=== PATIENT | female | born 1965 | race Caucasian/White ===

== ENCOUNTER 2023-01-21 09:10 | Inpatient (IN) | payer OTHER, SELFPAY ==
[2023-01-21] VITALS (19 sets, daily range): BP systolic 97–140; BP diastolic 37–76; PULSE 110–181; RESP 20–40; TEMP 37.4–38.1; O2SAT 98–100
--- NOTE | ~2023-01-21 | CT_ITS ---
EXAMINATION: CT brain wo con DATE: 01/21/2023 10:32 INDICATION: Transient alteration of awareness. TECHNIQUE: Computed tomography (CT) of the head was performed without intravenous contrast. The mA wa s adjusted according to patient size. Iterative reconstruction technique was employed. The dose-lengt h product was 605.33 mGy-cm. COMPARISON: None FINDINGS: There are changes of left-sided craniectomy. There is no intracranial hemorrhage, acute inf arction, or abnormal intracranial mass lesion. The ventricles are normal in size. The orbits are norm al. There is mucosal thickening in the paranasal sinuses. The mastoid air cells are normal. There is embolization material in peripheral left middle cranial fossa. IMPRESSION: 1. No acute intracranial pathology. Reviewed, dictated and finalized at location A.
--- NOTE | ~2023-01-21 | XR_ITS ---
EXAMINATION: XR chest 1V portable DATE: 01/21/2023 10:07 INDICATION: Altered mental status. Weakness. TECHNIQUE: A single frontal view of the chest was obtained. COMPARISON: None. FINDINGS: The lung volumes are small. There is a diffuse interstitial pattern in the lungs. No pleura l effusion or pneumothorax. The heart size is normal. IMPRESSION: 1. Small lung volumes with diffuse interstitial pattern, consistent with mild pulmonary edema versus atypical pneumonia versus chronic interstitial lung disease. Reviewed, dictated and finalized at location A. IMPRESSION: 1. Small lung volumes with diffuse interstitial pattern, consistent with mild p ulmonary edema versus atypical pneumonia versus chronic interstitial lung disea se.
--- NOTE | ~2023-01-21 | XR_ITS ---
XR chest 1V portable DATE: 01/28/2023 14:09 INDICATION: Dyspnea TECHNIQUE: Portable upright AP chest on 01/28/2023 at 1405 hours COMPARISON: 01/27/2023 CT chest abdomen pelvis FINDINGS: There is prominent elevation the right diaphragm and right basilar atelectasis. Patchy mild bilateral pulmonary infiltrates. No pneumothorax. Heart size is likely within normal range. IMPRESSION: Prominent elevation right diaphragm and mild bilateral patchy pulmonary infiltrates Reviewed, dictated and finalized at location A. IMPRESSION: Prominent elevation right diaphragm and mild bilateral patchy pulmo nary infiltrates
--- NOTE | ~2023-01-21 | XR_ITS ---
Portable chest x-ray Comparison: 01/21/2023 Clinical History: Shortness of breath Findings: There is worsening hazy bibasilar airspace disease, most compatible with moderate pulmonar y edema. Probable small right pleural effusion. Cardiomediastinal silhouette is stable. Bones and so ft tissues are unremarkable. Impression: Probable moderate pulmonary edema pattern with small right pleural effusion. Correlate clinically for infection. Reviewed, dictated and finalized at location . Impression: Probable moderate pulmonary edema pattern with small right pleural effusion. Co rrelate clinically for infection.
--- NOTE | ~2023-01-21 | XR_ITS ---
EXAMINATION: XR chest 1V portable Exam Date/Time: 01/30/2023 22:25 CDT HISTORY: PNA Comparison: 01/28/2023. RESULT: Lines, tubes, and devices: Partially visualized right ureteral stent. Lungs and pleura: Low volumes with crowding. Diffuse interstitial pattern. No focal consolidation. I mproved aeration of the right medial lung base. Minimal streaky bibasilar atelectasis/scar. Cardiomediastinal silhouette: Stable. Other: No acute osseous or upper abdominal finding. IMPRESSION: Interstitial edema. Reviewed, dictated and finalized at location K. IMPRESSION: Interstitial edema.
--- NOTE | ~2023-01-21 | XR_ITS ---
EXAMINATION: XR abdomen obstructive series DATE: 01/24/2023 10:36 INDICATION: Abnormal CT with small bowel ileus versus obstruction TECHNIQUE: Frontal supine and upright views of the abdomen were obtained. COMPARISON: CT dated 01/23/2023 FINDINGS: Is a gastric tube with distal tip in proximal side port in the body of the stomach. Right internal ur eteral stent with loops formed in expected position. Couple small ossific densities project along cristine e the distal aspect of the right internal ureteral stent which could represent either ureteral stones or superimposed phleboliths. No free intraperitoneal gas. There are some gas scattered within the co maurice. No dilated gas-filled loops of small bowel. Mild scattered bilateral airspace opacities which co uld represent pneumonia, atelectasis and/or pulmonary edema. IMPRESSION: 1. No free intraperitoneal gas or dilated gas-filled loops of bowel to suggest obstruction. Reviewed, dictated and finalized at location A.
--- NOTE | ~2023-01-21 | CT_ITS ---
EXAMINATION: CT chest abdomen pelvis wo con DATE: 01/23/2023 17:15 INDICATION: Sepsis. TECHNIQUE: Computed tomography (CT) of the chest, abdomen, and pelvis was performed without intraveno us contrast. Automated exposure control and iterative reconstruction technique were employed. The dos e-length product was 614.47 mGy-cm. COMPARISON: None FINDINGS: CHEST CT: There are airspace opacities with volume loss in right lower lobe. There are patchy airspace opacitie s and groundglass opacities in the upper lobes and right middle lobe. There is mild atelectasis in le ft lower lobe. There are small pleural effusions. Cardiomegaly is noted. No pericardial effusion. The re is a chronic burst fracture of T12 vertebral body. There is severe lumbar thoracic spondylosis. Th ere is mild chronic anterior wedging of multiple midthoracic vertebral bodies. ABDOMEN/PELVIS CT: The liver is normal. The gallbladder is normal in size. There is mild splenomegaly. The pancreas and adrenal glands are normal. There is a 4 mm stone in right kidney. There is mild right hydronephrosis and hydroureter. The bladder is decompressed by a Weinberg catheter. There is a calcification blurred by motion artifact in the area of the distal right ureter. Left kidney is normal. There are dilated loo ps of small bowel. The appendix is not visualized. There is a small volume of ascites. There are no p athologically enlarged lymph nodes. There is edema of the intra-abdominal fat and body wall. There ar e chronic burst fractures of L1 and L2 vertebral bodies. There is moderate lumbar spondylosis. IMPRESSION: 1. Multifocal lung disease, consistent with pneumonia. 2. Small pleural effusions. 3. Mild right hydronephrosis and hydroureter. A calcification blurred by motion artifact in the area of the distal radial right ureter is indeterminate for a ureteral stone. 4. Small volume of ascites. 5. Dilated loops of small bowel, consistent with adynamic ileus versus partial small bowel obstructio n. 6. Mild splenomegaly. Reviewed, dictated and finalized at location E. IMPRESSION: 1. Multifocal lung disease, consistent with pneumonia. 2. Small pleural effusions. 3. Mild right hydronephrosis and hydroureter. A calcification blurred by motion artifact in the area of the distal radial right ureter is indeterminate for a ureteral stone. 4. Small volume of ascites. 5. Dilated loops of small bowel, consistent with adynamic ileus versus partial small bowel obstruction. 6. Mild splenomegaly.
--- NOTE | ~2023-01-21 | XR_ITS ---
EXAMINATION: XR abdomen NG/feed tube insert DATE: 01/23/2023 20:21 INDICATION: Nasogastric tube placement. TECHNIQUE: An upright view of the abdomen was obtained. COMPARISON: CT abdomen and pelvis 01/23/2023 FINDINGS: There are no visible dilated loops of bowel. The lower abdomen is excluded. The nasogastric tube tip is in the stomach. IMPRESSION: 1. Nasogastric tube tip in the stomach. Reviewed, dictated and finalized at location E.
--- NOTE | ~2023-01-21 | CT_ITS ---
EXAMINATION: CT chest abdomen pelvis w con DATE: 01/27/2023 14:08 INDICATION: Shortness of breath. TECHNIQUE: Computed tomography (CT) of the chest, abdomen, and pelvis was performed without intraveno us contrast. Automated exposure control and iterative reconstruction technique were employed. The dos e-length product was 490.74 mGy-cm. COMPARISON: CT 01/23/2023 FINDINGS: CHEST CT: There are scattered groundglass opacities in all lobes. There is dependent atelectasis bilaterally. T here are small right and trace left pleural effusions. The heart size is normal. No pericardial effus ion. There is chronic height loss of T12 vertebral body. There is severe thoracic spondylosis. ABDOMEN/PELVIS CT: The liver demonstrates a small nodular surface contour, consistent with cirrhosis. The gallbladder is normal in size. There is mild splenomegaly. The pancreas, adrenal glands and left kidney are normal. There is a 2 mm stone in right kidney. There is a right internal ureteral stent in expected position . There are two 3 mm stones in distal right ureter. There is wall thickening of the small bowel and c olon. There is a moderate volume of ascites. There is calcified atherosclerosis of the aorta and many of the other arteries. The bladder is decompressed by a Weinberg catheter. There is chronic height loss of L1, L2, and L5 vertebral bodies. There is moderate lumbar spondylosis. IMPRESSION: 1. Improvement in multifocal lung disease, consistent with pneumonia. 2. Stable small right pleural effusion. 3. Right internal ureteral stent in expected position. Two 3 mm stones in distal right ureter. 4. Cirrhosis of the liver with portal venous hypertension. 5. Worsened moderate volume of ascites. 6. Wall thickening of small and large bowel, consistent with interstitial edema versus enterocolitis. Reviewed, dictated and finalized at location E. IMPRESSION: 1. Improvement in multifocal lung disease, consistent with pneumonia. 2. Stable small right pleural effusion. 3. Right internal ureteral stent in expected position. Two 3 mm stones in dista l right ureter. 4. Cirrhosis of the liver with portal venous hypertension. 5. Worsened moderate volume of ascites. 6. Wall thickening of small and large bowel, consistent with interstitial edema versus enterocolitis.
--- NOTE | ~2023-01-21 | XR_ITS ---
EXAMINATION: XR sm bowel follow through WS DATE: 01/24/2023 10:37 INDICATION: Assess for small bowel obstruction TECHNIQUE: High Lift Operator radiograph(s) of the abdomen was/were obtained. Water-soluble oral contrast was admi nistered, and sequential radiographs of the abdomen were obtained until oral contrast was noted to be in the proximal colon. COMPARISON: CT abdomen pelvis dated 01/23/2023 FINDINGS: Transit time from the stomach to proximal colon was approximately 15 minutes. There is normal caliber and mucosal fold pattern throughout the small bowel. Right internal ureteral stent in expected posit ion. IMPRESSION: 1. Normal small bowel follow-through. Reviewed, dictated and finalized at location A.
--- NOTE | ~2023-01-21 | XR_ITS ---
EXAMINATION: XR retrograde pyelo w/stent RT DATE: 01/23/2023 21:23 INDICATION: Right ureteral stone. TECHNIQUE: 52 intraoperative fluoroscopic views of the abdomen and pelvis were obtained. I was not pr esent. Fluoroscopy exposure time was 91 seconds. COMPARISON: CT abdomen and pelvis 01/23/2023 FINDINGS: The right-sided retrograde pyelogram demonstrates mobile filling defects that may be gas bu bbles and/or stones. The final images demonstrate a right internal ureteral stent in expected positio n. IMPRESSION: 1. Filling defects in the right ureter that may be gas bubbles and/or stones. 2. Right internal ureteral stent in expected position. Reviewed, dictated and finalized at location E.
--- NOTE | 2023-01-21 09:19 | ECG_ITS ---
Measurements Intervals [place] Rate: 112 P: 51 UT: 153 QRS: 6 QRSD: 94 T: 128 QT: 303 QTc: 415 Interpretive Statements SINUS TACHYCARDIA ATRIAL PREMATURE COMPLEX BORDERLINE ST-T WAVE ABNORMALITY- DIFFUSE LEADS BASELINE ARTIFACT- II, III, AVF, V3, V6 ABNORMAL ECG NO PREVIOUS ECG AVAILABLE FOR COMPARISON Electronically Signed On 01-21-2023 16:31:03 CDT by Fabiano Lucas D.O.
--- NOTE | 2023-01-21 09:20 | ED.AMS ---
HPI - Altered Mental Status General Chief Complaint: Altered Mental Status Stated Complaint: Altered mental status Time Seen by Provider: 01/21/23 09:14 History of Present Illness HPI narrative: Patient is a 57-year-old female presenting with altered mental status. Unclear past medical history at this time. According to EMS, she was noted to be altered yesterday at her nursing facility. This morning she was noted to be minimally responsive so EMS was called. She was found to be hypoglycemic with EMS with a blood sugar of 51. She was given a dose of IM glucagon and her mental status has slowly improved. They were unable to get IV access. On arrival, patient is alert but altered. She denies any pain. Further history limited secondary to clinical condition. Related Data Home Medications Medication Instructions Recorded Confirmed acetaminophen 500 mg tablet 500 mg PO Q6H PRN Pain 01/21/23 01/21/23 alprazolam 0.5 mg tablet (Xanax) 0.5 mg PO Q12H 01/21/23 01/21/23 bisacodyl 10 mg rectal suppository 10 mg RECTAL DAILY PRN Constipation 01/21/23 01/21/23 famotidine 20 mg tablet 20 mg PO DAILY 01/21/23 01/21/23 levetiracetam 500 mg tablet 500 mg PO Q12H 01/21/23 01/21/23 midodrine 5 mg tablet 5 mg PO TIDWM 01/21/23 01/21/23 oxybutynin chloride 5 mg 5 mg PO DAILY 01/21/23 01/21/23 tablet,extended release 24 hr oxycodone 5 mg tablet 5 mg PO Q4H PRN Pain 01/21/23 01/21/23 polyethylene glycol 3350 17 gram 17 g PO DAILY PRN Constipation 01/21/23 01/21/23 oral powder packet (Miralax) venlafaxine 75 mg capsule,extended 75 mg PO DAILY 01/21/23 01/21/23 release 24 hr (Effexor XR) Allergies Allergy/AdvReac Type Severity Reaction Status Date / Time Sulfa (Sulfonamide Allergy Unknown Verified 01/21/23 09:29 Antibiotics) Review of Systems Review of Systems: ROS unobtainable: Yes unobtainable due to medical condition and unobtainable due to mental status [facility] Past Medical History Medical History (Updated 01/21/23 @ 19:25 by Qi Saunders NP) Anxiety Chronic GERD Cirrhosis of liver Depression with anxiety Thrombocytopenia Surgical History Surgical History (Updated 01/21/23 @ 18:04 by Qi Saunders NP) H/O breast biopsy H/O craniotomy Family History Family History (Updated 01/21/23 @ 18:05 by Qi Saunders NP) Unknown No problems noted. Social History Social History (Updated 01/21/23 @ 18:08 by Qi Saunders NP) Social History: She resides in a long term. She is . She is disabled. She never smoked. She has a child stefani who is listed as the next of kin. Code status DNR. Smoking status: Never smoker Alcohol intake: unknown Substance use: unknown Substance use type: unknown Spiritual care concerns: No Exam Narrative: GENERAL: Chronically ill-appearing female lying in bed in no acute distress HEAD: Left-sided skull defect consistent with prior craniectomy EYES: EOMI. right pupil slightly larger than the left, both are reactive ENT: Nares clear, no rhinorrhea or epistaxis. Mucous membranes dry NECK: Supple. CHEST: No respiratory distress. HEART: Tachycardic, irregular rhythm ABDOMEN: Soft, nontender, nondistended EXTREMITIES: Normal range of motion. No edema. SKIN: Warm, dry, no rash. NEURO: Moves all 4 extremities, follows commands in all 4 extremities, alert, oriented x1 PSYCH: alert Course Vital Signs Vital signs: Vital Signs Temperature 99.8 F H 01/21/23 09:19 Pulse Rate 181 H 01/21/23 09:19 Respiratory Rate 36 H 01/21/23 09:19 Blood Pressure 97/37 L 01/21/23 09:19 Temperature 98.4 F 01/22/23 04:06 Pulse Rate 155 H 01/22/23 06:14 Respiratory Rate 19 01/22/23 04:06 Blood Pressure 115/55 L 01/22/23 06:07 Pulse Oximetry 98 01/22/23 04:08 Oxygen Delivery High Flow Nasal Cannula 01/22/23 04:08 Oxygen Flow Rate 2 01/22/23 04:08 Fraction of Inspired Oxygen 28 01/22/23 04:08 Procedures Fly
[2023-01-21 09:34] LABS: Glucose Point of Care 49 mg/dl (65-105)
[2023-01-21] MEDS: SODIUM CHLORIDE 0.9% IV 1,000 ML 999 ML IV CONT ×2 (10:06→10:46)
[2023-01-21] MEDS: DEXTROSE 50% 25 GM/50 ML SYRINGE (10:07)
[2023-01-21 10:18] LABS: Hematocrit 36.2 % (37.0-47.0); Hemoglobin 10.3 g/dL (12.0-15.0); Immature Platelet Fraction Pct 13.6 % (0.9-11.2); Mean Corpuscular HGB Conc 28.5 g/dl (32-36); Mean Corpuscular Hemoglobin 22.3 pg (26-34); Mean Corpuscular Volume 78.4 fl (80-100); Platelet Count Result 50 k/mm3 (150-375); Red Blood Count 4.62 M/mm3 (4.2-5.4); Red Cell Distribution Width 21.2 % (11.5-14.5); White Blood Count 18.8 K/mm3 (4.5-10.0)
[2023-01-21 10:27] LABS: Partial Thromboplastin Time 53.3 SECONDS (22.3-36.8); Prothrombin Time 23.7 Seconds (11.1-14.7)
[2023-01-21 10:45] LABS: Albumin Level 3.1 g/dL (3.5-5.1); Alkaline Phosphatase 66 U/L (38-126); Anion Gap 11 mmol/L (8-16); Aspartate Amino Transferase 422 U/L (14-36); Bilirubin,Total 2.5 mg/dL (0.2-1.3); Blood Urea Nitrogen 36 mg/dL (7-17); Calcium 8.6 mg/dL (8.4-10.2); Carbon Dioxide 19 mmol/L (22-30); Chloride 112 mmol/L (98-107); Estimated Glomerular Filt Rate 36; Glucose 89 mg/dL (65-110); Lipase 106 U/L (23-300); Magnesium 1.9 mg/dL (1.6-2.3); Potassium 3.2 mmol/L (3.4-5.0); Sodium 142 mmol/L (137-145)
[2023-01-21] MEDS: PIPERACILLN/TAZ 3.375GM/NS50ML 3.375 GM/50 ML BAG IVPB (10:46)
[2023-01-21 10:51] LABS: Glucose Point of Care 135 mg/dl (65-105)
[2023-01-21 10:52] LABS: Influenza A QL RT-PCR Negative (Negative); Influenza B QL RT-PCR Negative (Negative); SARS-CoV-2 RNA PCR Negative (Negative)
[2023-01-21 10:54] LABS: Anisocytosis 2+ (NORMAL); Band Neutrophils Percent 32 % (0-6); Lymphocytes Absolute Manual 0.56 K/mm3 (1.1-4.5); Lymphocytes Percent Manual 3 % (18-44); Microcytosis 1+ (NORMAL); Monocytes Absolute Manual 0.56 K/mm3 (0.1-0.90); Monocytes Percent Manual 3 % (3-9); Neutrophils Absolute Manual 17.67 K/mm3 (1.7-7.2); Neutrophils Percent Manual 62 % (46-73); Platelet Estimate Decreased (Adequate); Schistocytes None Seen (NORMAL); Total Cells Counted 100
[2023-01-21 10:55] LABS: Ovalocytes 1+ (NORMAL)
[2023-01-21 11:04] LABS: Appearance Urine Cloudy (Clear); Bacteria Urine 4+ /hpf; Bilirubin Urine Negative (Negative); Blood Urine 3+ (Negative); Color Urine Yellow (Yellow); Glucose Urine UA Trace mg/dL (Negative); Granular Casts Urine Present /lpf; Ketones Urine Negative (Negative); Leukocyte Esterase Ur 2+ LEU/UL (Negative); Need Manual Microscopic Reviewed; Nitrate Urine Negative (Negative); Protein Urine 2+ mg/dL (Negative); Specific Grav Ur 1.021 (1.001-1.035); Squamous Epithelial Cell Urine Occasional /hpf (Few); WBC Urine >100 /hpf; pH Urine 5.5 (5.0-9.0)
[2023-01-21 11:07] LABS: NT Pro B Type Natriuretic Pept 6970 pg/mL (19.9-100); Troponin I 0.068 ng/mL (0.000-0.034)
[2023-01-21 11:09] LABS: Alanine Aminotransferase 87 U/L (6-35)
[2023-01-21 11:15] LABS: Add Urine Microscopic? YES
--- NOTE | 2023-01-21 11:23 | ECG_ITS ---
Measurements Intervals [place] Rate: 114 P: 53 OR: 180 QRS: -1 QRSD: 98 T: 172 QT: 322 QTc: 445 Interpretive Statements SINUS TACHYCARDIA ATRIAL COUPLETS AND FREQUENT ATRIAL PREMATURE COMPLEXES NONSPECIFIC ST & T-WAVE ABNORMALITY- DIFFUSE LEADS BASELINE ARTIFACT- II, III, AVR, AVL, AVF, V3-V6 ABNORMAL ECG COMPARED TO ECG 01/21/2023 09:17:25 NO SIGNIFICANT CHANGES Electronically Signed On 01-21-2023 16:36:46 CDT by Fabiano Lucas D.O.
[2023-01-21] MEDS: SODIUM CHLORIDE 0.9% IV 1,000 ML 125 ML IV CONT (12:38)
[2023-01-21] MEDS: AZITHROMYCIN 500 MG/NS 250 ML 500 MG/250 ML BAG 250 MG IVPB (12:38)
[2023-01-21 13:12] LABS: Reflex Lactic Acid Yes or No Add Lactic
[2023-01-21 13:47] LABS: Troponin I 0.055 ng/mL (0.000-0.034)
--- NOTE | 2023-01-21 14:00 | PM.IMHP ---
H&P: HPI History of Present Illness Date/Time: 01/21/23 14:00 Chief Complaint: Altered mental status Narrative: This is a 57-year-old female patient who resides in a fdc. The patient came to the emergency room today because she has been altered since yesterday at the nursing facility. The patient was minimally responsive when EMS arrived. Patient was found to be hypoglycemic in the 40s and 50s and she was given IM glucagon her mental status did improve somewhat. They were unable to achieve IV access therefore a central line was placed in the right femoral area per ED provider. Her white count was found to be 18.8. H and H is 10.3 and 36.2. The patient does have bandemia with band neutrophils 32. BUN is 36 creatinine 1.5. Her lactic was 6.0 and now 4.3. Total bilirubin 2.5 AST 422 ALT is 87. Troponin 0.068, 0.055, and 0.053 respectively. BNP 6970. She was found to be positive for UTI. Influenza A/B and COVID are all negative. Head CT was read as no acute intracranial pathology. Chest x-ray was read asSmall lung volumes with diffuse interstitial pattern, consistent with mild pulmonary edema versus atypical pneumonia versus chronic interstitial lung disease. The patient was given Zosyn, vancomycin, a azithromycin, and 3 L of IV fluids per sepsis protocol 30 milligrams/kilogram. Her platelet count is 50. Potassium 3.2. Chloride is 112. The patient is being admitted to inpatient status on the date of service of 01/21/2023 Review of Systems Review of Systems: All systems reviewed & are unremarkable except as noted in HPI and below Constitutional: Constitutional: Reports as per HPI and Reports no additional constitutional complaints Eyes: Eyes: Reports as per HPI and Reports no additional eye complaints ENT: Reports system reviewed and no additional complaints, except as documented and Reports Normal hearing present Cardiovascular: Cardiovascular: Reports no additional cardiovascular complaints Respiratory: Respiratory: Reports no additional respiratory complaints and Reports no additional respiratory complaints Gastrointestinal: Gastrointestinal: Reports as per HPI and Reports no additional gastrointestinal complaints Musculoskeletal: Musculoskeletal: Reports no additional musculoskeletal complaints Integumentary/Breasts: Skin/Breast: Reports system reviewed and no additional complaints, except as docu and Reports as per HPI Neurologic: Reports system reviewed and no additional complaints, except as documented, Reports as per HPI and Reports Normal hearing present Psychiatric: Psychiatric: Reports no additional psychiatric complaints and Reports as per HPI Endocrine: Endocrine: Reports no additional endocrine complaints Hematologic/Lymphatic: Hematologic/Lymphatic: Reports no additional hematologic/lymphatic complaints Allergic/Immunologic: Allergic/Immunologic: Reports no additional allergic/immunologic complaints [facility] Past Medical History Medical History (Updated 01/21/23 @ 19:25 by Qi Saunders NP) Anxiety Chronic GERD Cirrhosis of liver Depression with anxiety Thrombocytopenia Surgical History Surgical History (Updated 01/21/23 @ 18:04 by Qi Saunders NP) H/O breast biopsy H/O craniotomy Family History Family History (Updated 01/21/23 @ 18:05 by Qi Saunders NP) Unknown No problems noted. Social History Social History (Updated 01/21/23 @ 18:08 by Qi Saunders NP) Social History: She resides in a fdc. She is . She is disabled. She never smoked. She has a child stefani who is listed as the next of kin. Code status DNR. Smoking status: Never smoker Alcohol intake: unknown Substance use: unknown Substance use type: unknown Spiritual care concerns: No Meds Home Medications and Allergies Home Medications Medication Instructions Recorded Confirmed Type acetaminophen 500 mg tablet 500 mg PO Q6H PRN Pain 01/21/23
[2023-01-21 14:17] LABS: Lactic Acid 4.3 mmol/L (0.7-2.0)
[2023-01-21] MEDS: ACETAMINOPHEN 650 MG SUPPOSITORY RECTAL (15:01)
[2023-01-21] MEDS: CENTRAL LINE FLUSH 10 ML IV PUSH ×3 (15:04→20:41)
--- NOTE | 2023-01-21 16:01 | ADMGEN ---
This patient, Patt López, was admitted to IMU Room 231-01 at 1342. Patient/family oriented to hospital policies and general routines including ID bracelet, bed and alarms, visiting hours, pain management, procedures, bathroom and other care routines, personal items, smoking policy, room service/diet, and visiting hours. Information on how to activate the Rapid Response Team has been discussed. Patient/Family are encouraged to report perceived risks to care and to ask questions if they do not understand what they are told or what they should do.
[2023-01-21 16:34] LABS: Troponin I 0.053 ng/mL (0.000-0.034)
[2023-01-21] MEDS: KCL 20 MEQ/SW 100 ML 100 ML 50 MEQ IVPB (16:54)
[2023-01-21] MEDS: FAMOTIDINE 20 MG/2 ML VIAL IV PUSH (20:27)
[2023-01-21] MEDS: levETIRAcetam 500MG/NACL 100ML 500 MG/100 ML BAG 400 MG IVPB (20:40)
[2023-01-21] MEDS: CENTRAL LINE FLUSH 20 ML IV PUSH (20:41)
[2023-01-21 20:52] LABS: Ammonia 34 umol/L (9-30)
[2023-01-21] MEDS: IPRATROPIUM BR 0.02% INH SOLN 0.5 MG/2.5 ML VIAL INHALATION (20:59)
[2023-01-21] MEDS: LEVALBUTEROL NEB 1.25 MG/3 ML INHALATION (20:59)
[2023-01-21 23:19] LABS: Glucose Point of Care 98 mg/dl (65-105)
[2023-01-22] VITALS (35 sets, daily range): BP systolic 95–176; BP diastolic 45–87; PULSE 80–168; RESP 19–32; TEMP 36.1–37.6; O2SAT 93–100
[2023-01-22] MEDS: ACETAMINOPHEN 650 MG SUPPOSITORY RECTAL (00:16)
[2023-01-22] MEDS: LEVALBUTEROL NEB 1.25 MG/3 ML INHALATION ×4 (02:46→20:15)
[2023-01-22] MEDS: IPRATROPIUM BR 0.02% INH SOLN 0.5 MG/2.5 ML VIAL INHALATION ×4 (02:46→20:15)
--- NOTE | 2023-01-22 05:17 | ECG_ITS ---
Measurements Intervals [place] Rate: 154 P: [place]: 0 QRS: 0 QRSD: 96 T: 159 QT: 269 QTc: 431 Interpretive Statements ATRIAL FIBRILLATION WITH RAPID VENTRICULAR RESPONSE BORDERLINE ST-T WAVE ABNORMALITY- HIGH LATERAL LEADS BASELINE WANDER- I, II, AVR, AVL, AVF, V6 ABNORMAL ECG COMPARED TO ECG 01/21/2023 11:25:57 ATRIAL FIBRILLATION NOW PRESENT Electronically Signed On 01-22-2023 7:36:26 CDT by Fabiano Lucas D.O.
[2023-01-22] MEDS: SODIUM CHLORIDE 0.9% IV 1,000 ML 75 ML IV CONT ×2 (05:29→15:38)
[2023-01-22] MEDS: CENTRAL LINE FLUSH 10 ML IV PUSH ×4 (05:30→21:39)
[2023-01-22] MEDS: CENTRAL LINE FLUSH 20 ML IV PUSH (05:30)
--- NOTE | 2023-01-22 06:06 | PM.EVENT ---
Event Note Event Note Event Note: 01/22/2023 at 05:30 Nursing staff called to tell me that the patient went into an irregular tachycardic rhythm. A stat EKG was performed a confirm the patient has been in AFib RVR since just after 05:00. This new onset AFib with no known prior history according to records. The patient is auto anticoagulated with an INR of 2 due to her cirrhosis. Patient's blood pressures have been stable despite atrial fibrillation and history of orthostatic hypotension requiring midodrine. I went and evaluated the patient. She has no evidence of overt edema. She is not in any respiratory distress. Mucous membranes are dry. Pupils are unequal with right pupil greater than left but patient reports this changes chronic. Patient has cranial changes of prior craniotomy with resulting skull deformity due to history of brain tumor. She denies any pain. She reports that she feels like she is freezing. Her room was quite cold. She has been incontinent of a large bowel movement at the time my evaluation. The patient reports that she is in the hospital and that the month is January. She does not know the year. Assessment/Plan: New onset AFib RVR--EKG was reviewed and demonstrated atrial fibrillation with RVR. No QT prolongation. The patient's heart rate did get as high as 160-170 but for the most part heart rate is been 140-150. I gave 1 dose of IV Lopressor which improved the patient's heart rate 120 to 130s. Will obtain echocardiogram to further evaluate cardiac structure and function. If heart rate remains elevated after 20 30 minutes and is long his blood pressures are stable all could order for 1 more dose of IV Lopressor versus starting the patient on a Cardizem drip. 30 minute spent in critical care activities Due to a high probability of clinically significant, life threatening deterioration, the patient required my highest level of preparedness to intervene emergently and I personally spent this critical care time directly and personally managing the patient. This critical care time included obtaining a history; examining the patient; pulse oximetry; ordering and review of studies; arranging urgent treatment with development of a management plan; evaluation of patient's response to treatment; frequent reassessment; and discussions with other providers. It was exclusive of separately billable procedures and treating other patients and teaching time. Please see Assessment and Plan section and the rest of the note for further information on patient assessment and treatment.
[2023-01-22 06:10] LABS: Hematocrit 29.4 % (37.0-47.0); Hemoglobin 8.6 g/dL (12.0-15.0); Immature Platelet Fraction Pct 13.3 % (0.9-11.2); Mean Corpuscular HGB Conc 29.3 g/dl (32-36); Mean Corpuscular Hemoglobin 22.9 pg (26-34); Mean Corpuscular Volume 78.2 fl (80-100); Platelet Count Result 44 k/mm3 (150-375); Red Blood Count 3.76 M/mm3 (4.2-5.4); Red Cell Distribution Width 20.7 % (11.5-14.5); White Blood Count 10.8 K/mm3 (4.5-10.0)
[2023-01-22] MEDS: METOPROLOL TARTRATE INJ 5 MG/5 ML VIAL IV PUSH (06:14)
[2023-01-22 06:27] LABS: Lactic Acid Reflex 1.9 mmol/L (0.7-2.0)
[2023-01-22 06:29] LABS: Alanine Aminotransferase 78 U/L (6-35); Albumin Level 2.6 g/dL (3.5-5.1); Alkaline Phosphatase 55 U/L (38-126); Anion Gap 0 mmol/L (8-16); Aspartate Amino Transferase 382 U/L (14-36); Bilirubin,Total 1.7 mg/dL (0.2-1.3); Blood Urea Nitrogen 41 mg/dL (7-17); Calcium 7.9 mg/dL (8.4-10.2); Carbon Dioxide 23 mmol/L (22-30); Chloride 116 mmol/L (98-107); Estimated CRCL calculation 41 ml/min; Estimated Glomerular Filt Rate 57; Glucose 113 mg/dL (65-110); Magnesium 2.2 mg/dL (1.6-2.3); Potassium 3.1 mmol/L (3.4-5.0); Sodium 139 mmol/L (137-145)
[2023-01-22 06:39] LABS: Band Neutrophils Percent 19 % (0-6); Lymphocytes Absolute Manual 0.43 K/mm3 (1.1-4.5); Lymphocytes Percent Manual 4 % (18-44); Monocytes Absolute Manual 0.32 K/mm3 (0.1-0.90); Monocytes Percent Manual 3 % (3-9); Neutrophils Absolute Manual 10.04 K/mm3 (1.7-7.2); Neutrophils Percent Manual 74 % (46-73); Platelet Estimate Decreased (Adequate); Total Cells Counted 100
[2023-01-22 06:40] LABS: Anisocytosis 2+ (NORMAL); Burr Cells 1+ (NORMAL); Hypochromasia 1+ (NORMAL); Microcytosis 1+ (NORMAL); Schistocytes None Seen (NORMAL); Smudge Cells PRESENT
[2023-01-22 06:57] LABS: INR 1.6; Prothrombin Time 19.5 Seconds (11.1-14.7)
[2023-01-22] MEDS: POTASSIUM CHLORIDE INJ 40 MEQ in SODIUM CHLORIDE 0.9% IV 500 ML 130 MEQ IVPB (07:29)
[2023-01-22] MEDS: oxyCODONE HCL (*CRX) 5 MG TAB IR PO ×2 (08:00→17:21)
--- NOTE | 2023-01-22 08:33 | PM.IMPN ---
Progress Note: A&P Assessment and Plan (1) Pneumonia: Code(s): J18.9 - Pneumonia, unspecified organism Status: Acute (2) Hypokalemia: Code(s): E87.6 - Hypokalemia Status: Acute (3) Elevated troponin: Code(s): R77.8 - Other specified abnormalities of plasma proteins Status: Acute (4) Depression with anxiety: Code(s): F41.8 - Other specified anxiety disorders Status: Acute (5) Chronic GERD: Code(s): K21.9 - Gastro-esophageal reflux disease without esophagitis Status: Acute (6) Acute and chronic respiratory failure with hypoxia: Code(s): J96.21 - Acute and chronic respiratory failure with hypoxia Status: Acute (7) New onset a-fib: Code(s): I48.91 - Unspecified atrial fibrillation Status: Acute (8) Atrial fibrillation with RVR: Code(s): I48.91 - Unspecified atrial fibrillation Status: Acute (9) Altered mental status: Code(s): R41.82 - Altered mental status, unspecified Status: Acute (10) Bacteremia: Code(s): R78.81 - Bacteremia Status: Acute (11) Severe sepsis: Code(s): A41.9 - Sepsis, unspecified organism; R65.20 - Severe sepsis without septic shock Status: Acute (12) UTI (urinary tract infection): Code(s): N39.0 - Urinary tract infection, site not specified Status: Acute Plan . Acute encephalopathy Patient is confused, likely secondary to sepsis and electrolyte disorder Neuro check Fall precaution Severe sepsis Patient has leukocytosis, tachycardia tachypnea, hypotension POA, likely resulting from pneumonia and UTI Received fluid resuscitation and antibiotics Blood pressure became stable Blood culture grows Gram-negative bacilli Check to doxycycline and Zosyn IV continue vancomycin IV Deescalate antibiotic based on cultures and susceptibility Pneumonia Chest x-ray shows interstitial patchy infiltrate both lungs, suggesting atypical pneumonia Patient on vancomycin, doxycycline and Zosyn IV Acute respiratory failure with hypoxemia Likely secondary pneumonia Continue O2 therapy to keep pulse ox above 92 UTI UA shows pyuria and microscopic hematuria Follow-up urine culture Antibiotics see above New onset AFib and RVR No history of RVR Patient is noted have AFib on telemetry monitoring in the morning, heart rate above 170 Likely secondary to sepsis Blood pressure was soft, may not be able to tolerate Cardizem and beta-ajay Start amiodarone 150 mg once and amiodarone drip Follow-up echocardiogram Follow-up TSH Consult cardiology for evaluation treatment Elevated troponin Likely secondary to sepsis EKG shows AFib no specific ST-T changes Follow echocardiogram Consult operations analyst for evaluation Start aspirin 325 mg once 81 mg daily p.o.. History of seizure Currently patient on Keppra drip, will switch to oral medication when patient is able to tolerate oral diet Hypokalemia Replace with potassium chloride Follow-up magnesium level Follow-up BMP Replete electrolytes accordingly ?Thrombocytopenia: The patient has had a history of cirrhosis of the liver.? No anticoagulation is administer at this time for DVT prophylaxis.? Because of her low platelets. 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 Patient was somnolent, hypothyroid or bright history, complaining whole body ache. I reviewed the labs, images studies. Blood culture grows Gram-negative bacilli, leukocytosis persists trending down. Patient was found to have AFib RVR, heart rate about 173 per nurse report according to
[2023-01-22] MEDS: AMIODARONE 360 MG/D5W 200 ML 360 MG/200 ML BAG 33.33 MG IV CONT (09:30)
[2023-01-22] MEDS: AMIODARONE 150 MG/D5W 100 ML 150 MG/100 ML BAG 600 MG IV CONT (09:35)
[2023-01-22] MEDS: FAMOTIDINE 20 MG/2 ML VIAL IV PUSH ×2 (09:36→21:37)
[2023-01-22 09:41] LABS: Ammonia 10 umol/L (9-30)
[2023-01-22] MEDS: DOXYCYCLINE 100 MG/NS 100 ML 100 MG/100 ML BAG IVPB ×2 (10:20→21:44)
[2023-01-22 11:01] LABS: Anion Gap 5 mmol/L (8-16); Blood Urea Nitrogen 37 mg/dL (7-17); Carbon Dioxide 21 mmol/L (22-30); Chloride 117 mmol/L (98-107); Estimated CRCL calculation 45 ml/min; Estimated Glomerular Filt Rate > 60; Glucose 129 mg/dL (65-110); Magnesium 2.2 mg/dL (1.6-2.3); Potassium 3.3 mmol/L (3.4-5.0); Sodium 143 mmol/L (137-145)
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
[2023-01-22] MEDS: levETIRAcetam 500 MG TABLET PO ×2 (12:41→21:52)
[2023-01-22] MEDS: PIPERACILLN/TAZ 3.375GM/NS50ML 3.375 GM/50 ML BAG IVPB ×2 (14:17→18:08)
[2023-01-22] MEDS: AMIODARONE 360 MG/D5W 200 ML 360 MG/200 ML BAG 16.67 MG IV CONT (15:37)
[2023-01-22] MEDS: VANCOMYCIN 1,250 MG/NS 250 ML 1,250 MG/250 ML BAG 166.67 MG IVPB (15:38)
[2023-01-22] MEDS: ALPRAZolam (*CRX) 0.5 MG TABLET PO (18:27)
[2023-01-22] MEDS: METOPROLOL TARTRATE 12.5 MG TABLET PO (21:39)
[2023-01-23] VITALS (34 sets, daily range): BP systolic 100–129; BP diastolic 48–72; PULSE 78–115; RESP 18–32; TEMP 36.3–40; O2SAT 92–100; BMI 25.2
--- NOTE | 2023-01-23 | ECHO_ITS ---
Patient Info Name: Patt López Age: 57 years : 1965 Gender: Female Ht: 61 in Wt: 133 lbs BSA: 1.62 m2 HR: 94 bpm BP: 114 / 56 mmHg Heart Rhythm: Sinus Rhythm Technical Quality: Good Exam Date: 01/23/2023 10:38 AM Exam Location: [facility] Patient Status: Inpatient Admit Date: 01/21/2023 Staff Ordering Physician: Mayra Birmingham DO Demand Planning Analyst: Jerrica Moreno RDCS Attending Provider: Dashawn Mendes MD Referring Physician: Vinnie CABAN; Exam Type: CA echo doppler color flow Study Info Indications - NEW ONSET AFIB RVR Complete two-dimensional, color flow and Doppler transthoracic echocardiogram is performed. Summary 1. Complete two-dimensional, color flow and Doppler transthoracic echocardiogram is performed. 2. Normal left ventricular size thickness and systolic function. 3. Mildly calcified mitral valve annulus with trivial MR. 4. Normal sinus rhythm present during this exam( exam ordered because of AFib). Left Ventricle Left ventricular chamber dimension is normal. Left ventricular systolic function is normal, estimated at 65-70%. The left ventricular diastolic function is normal. Right Ventricle Right ventricular chamber dimension is normal. Left Atria Left atrial chamber dimension is normal. Right Atria Right atrial chamber dimension is normal. Aortic Valve The aortic valve is normal. Pulmonic Valve The pulmonic valve is normal. Mitral Valve The mitral valve has normal leaflets. There is trace mitral valve regurgitation. The mitral valve annulus is mildly calcified. Tricuspid Valve The tricuspid valve leaflets are normal. Pericardium/Pleural The pericardium appears normal. Aorta The aortic root size at the sinus of Valsalva is normal. Left Ventricular Outflow Tract Name Value Normal LVOT 2D LVOT Diameter 2.0 cm LVOT Doppler LVOT Peak Gradient 10 mmHg LVOT Mean Gradient 6 mmHg LVOT VTI 27 cm LVOT VTI/AV VTI Ratio 0.9 LVOT Stroke Volume 82 ml LVOT CO 21.7 l/min LVOT CI 13.4 l/min/m2 Pulmonic Valve Name Value Normal RVOT Doppler RVOT Peak Gradient 3 mmHg PV Doppler PV Peak Gradient 7 mmHg Mitral Valve Name Value Normal MV Doppler MV Decel Villalba 541 cm/s2 MV PHT 47 ms MV Area (PHT) 4.7 cm2 4.0-5.0 MV Diastolic Function
[2023-01-23] MEDS: PIPERACILLN/TAZ 3.375GM/NS50ML 3.375 GM/50 ML BAG IVPB ×4 (00:29→20:19)
[2023-01-23] MEDS: LEVALBUTEROL NEB 1.25 MG/3 ML INHALATION ×4 (02:26→20:32)
[2023-01-23] MEDS: IPRATROPIUM BR 0.02% INH SOLN 0.5 MG/2.5 ML VIAL INHALATION ×4 (02:26→20:33)
[2023-01-23] MEDS: SODIUM CHLORIDE 0.9% IV 1,000 ML 75 ML IV CONT (05:10)
[2023-01-23] MEDS: CENTRAL LINE FLUSH 20 ML IV PUSH (06:07)
[2023-01-23] MEDS: CENTRAL LINE FLUSH 10 ML IV PUSH (06:07)
[2023-01-23 06:31] LABS: Hematocrit 25.8 % (37.0-47.0); Hemoglobin 7.7 g/dL (12.0-15.0); Immature Platelet Fraction Pct 14.3 % (0.9-11.2); Mean Corpuscular HGB Conc 29.8 g/dl (32-36); Mean Corpuscular Hemoglobin 23.1 pg (26-34); Mean Corpuscular Volume 77.5 fl (80-100); Platelet Count Result 41 k/mm3 (150-375); Red Blood Count 3.33 M/mm3 (4.2-5.4); Red Cell Distribution Width 20.7 % (11.5-14.5); White Blood Count 8.7 K/mm3 (4.5-10.0)
[2023-01-23 06:37] LABS: Alanine Aminotransferase 64 U/L (6-35); Albumin Level 2.3 g/dL (3.5-5.1); Alkaline Phosphatase 65 U/L (38-126); Anion Gap 0 mmol/L (8-16); Aspartate Amino Transferase 179 U/L (14-36); Bilirubin,Total 1.5 mg/dL (0.2-1.3); Blood Urea Nitrogen 25 mg/dL (7-17); Calcium 7.6 mg/dL (8.4-10.2); Carbon Dioxide 23 mmol/L (22-30); Chloride 112 mmol/L (98-107); Estimated CRCL calculation 57 ml/min; Estimated Glomerular Filt Rate > 60; Glucose 97 mg/dL (65-110); Sodium 135 mmol/L (137-145)
--- NOTE | 2023-01-23 08:38 | PM.IMPN ---
Progress Note: A&P Assessment and Plan (1) Pneumonia: Code(s): J18.9 - Pneumonia, unspecified organism Status: Acute (2) Hypokalemia: Code(s): E87.6 - Hypokalemia Status: Acute (3) Elevated troponin: Code(s): R77.8 - Other specified abnormalities of plasma proteins Status: Acute (4) Depression with anxiety: Code(s): F41.8 - Other specified anxiety disorders Status: Acute (5) Chronic GERD: Code(s): K21.9 - Gastro-esophageal reflux disease without esophagitis Status: Acute (6) Acute and chronic respiratory failure with hypoxia: Code(s): J96.21 - Acute and chronic respiratory failure with hypoxia Status: Acute (7) New onset a-fib: Code(s): I48.91 - Unspecified atrial fibrillation Status: Acute (8) Atrial fibrillation with RVR: Code(s): I48.91 - Unspecified atrial fibrillation Status: Acute (9) Altered mental status: Code(s): R41.82 - Altered mental status, unspecified Status: Acute (10) Bacteremia: Code(s): R78.81 - Bacteremia Status: Acute (11) Severe sepsis: Code(s): A41.9 - Sepsis, unspecified organism; R65.20 - Severe sepsis without septic shock Status: Acute (12) UTI (urinary tract infection): Code(s): N39.0 - Urinary tract infection, site not specified Status: Acute Plan . Acute encephalopathy Patient is confused, likely secondary to sepsis and electrolyte disorder, Mental status is improving, able to answer a few questions now Neuro check Fall precaution Severe sepsis Patient has leukocytosis, tachycardia tachypnea, hypotension POA, likely resulting from pneumonia and UTI Received fluid resuscitation and antibiotics Blood pressure became stable Blood culture grows Proteus mirabilis Continue doxycycline and Zosyn IV and discontinue vancomycin IV Deescalate antibiotic based on cultures and susceptibility Pneumonia Chest x-ray shows interstitial patchy infiltrate both lungs, suggesting atypical pneumonia, possible aspiration pneumonia Patient on vancomycin, doxycycline and Zosyn IV Acute respiratory failure with hypoxemia Likely secondary pneumonia Continue O2 therapy to keep pulse ox above 92 UTI UA shows pyuria and microscopic hematuria Follow-up urine culture, Gram-negative bacilli Antibiotics see above New onset AFib and RVR No history of RVR Patient is noted have AFib on telemetry monitoring in the morning, heart rate above 170 Likely secondary to sepsis Blood pressure was soft, may not be able to tolerate Cardizem and beta-ajay Start amiodarone 150 mg once and amiodarone drip Follow-up echocardiogram Follow-up TSH Consult cardiology for evaluation treatment Elevated troponin Likely secondary to sepsis EKG shows AFib no specific ST-T changes Follow echocardiogram Consult executive staff assistant for evaluation Start aspirin 325 mg once 81 mg daily p.o.. History of seizure Currently patient on Keppra drip, will switch to oral medication when patient is able to tolerate oral diet Hypokalemia Replace with potassium chloride Follow-up magnesium level Follow-up BMP Replete electrolytes accordingly ?Thrombocytopenia: The patient has had a history of cirrhosis of the liver.? No anticoagulation is administer at this time for DVT prophylaxis.? Because of her low platelets. 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 I also Consult securities underwriter for evaluation and treatment Patient may stay more than 2 midnights in the hospital Subjective Date/time seen: 01/23/23 08:38 Interval history: I saw exam patient today, patient mental status improving, patient is afebrile, per. Hemodynamics stable, i reviewed the labs, images studies
[2023-01-23] MEDS: FAMOTIDINE 20 MG/2 ML VIAL IV PUSH ×2 (10:00→22:07)
[2023-01-23] MEDS: levETIRAcetam 500 MG TABLET PO (10:00)
[2023-01-23] MEDS: DOXYCYCLINE 100 MG/NS 100 ML 100 MG/100 ML BAG IVPB (10:00)
[2023-01-23] MEDS: METOPROLOL TARTRATE 12.5 MG TABLET PO (10:01)
[2023-01-23 11:08] LABS: Iron 23 ug/dL (37-170)
[2023-01-23 11:17] LABS: Percent Iron Saturation 6 % (20-50)
[2023-01-23] MEDS: POTASSIUM CHLORIDE 20 MEQ PACKET (FOR LIQUID) 40 MEQ PO (11:50)
[2023-01-23] MEDS: ALPRAZolam (*CRX) 0.5 MG TABLET PO (11:51)
[2023-01-23] MEDS: oxyCODONE HCL (*CRX) 5 MG TAB IR PO (11:51)
--- NOTE | 2023-01-23 15:25 | PC.NURSE ---
This patient, Patt López, was transferred to [facility] on 01/23/23 at 1525. Personal belongings sent with patient. Report given to Faye ORLANDO. Appropriate documentation sent with patient.
[2023-01-23] MEDS: ACETAMINOPHEN 650 MG SUPPOSITORY RECTAL (16:13)
[2023-01-23 16:18] LABS: Glucose Point of Care 98 mg/dl (65-105)
--- NOTE | 2023-01-23 17:14 | PM.IMPN ---
Progress Note: A&P Assessment and Plan (1) Pneumonia: Code(s): J18.9 - Pneumonia, unspecified organism Status: Acute (2) Hypokalemia: Code(s): E87.6 - Hypokalemia Status: Acute (3) Elevated troponin: Code(s): R77.8 - Other specified abnormalities of plasma proteins Status: Acute (4) Depression with anxiety: Code(s): F41.8 - Other specified anxiety disorders Status: Acute (5) Chronic GERD: Code(s): K21.9 - Gastro-esophageal reflux disease without esophagitis Status: Acute (6) Acute and chronic respiratory failure with hypoxia: Code(s): J96.21 - Acute and chronic respiratory failure with hypoxia Status: Acute (7) New onset a-fib: Code(s): I48.91 - Unspecified atrial fibrillation Status: Acute (8) Atrial fibrillation with RVR: Code(s): I48.91 - Unspecified atrial fibrillation Status: Acute (9) Altered mental status: Code(s): R41.82 - Altered mental status, unspecified Status: Acute (10) Bacteremia: Code(s): R78.81 - Bacteremia Status: Acute (11) Severe sepsis: Code(s): A41.9 - Sepsis, unspecified organism; R65.20 - Severe sepsis without septic shock Status: Acute (12) UTI (urinary tract infection): Code(s): N39.0 - Urinary tract infection, site not specified Status: Acute Plan . Acute encephalopathy Patient is confused, likely secondary to sepsis and electrolyte disorder, Mental status is improving, able to answer a few questions now Neuro check Fall precaution Severe sepsis Patient has leukocytosis, tachycardia tachypnea, hypotension POA, likely resulting from pneumonia and UTI Received fluid resuscitation and antibiotics Blood pressure became stable Blood culture grows Proteus mirabilis Continue doxycycline and Zosyn IV and discontinue vancomycin IV Deescalate antibiotic based on cultures and susceptibility 5pm 01/23 Patient had spiked fever in the afternoon, currently patient is on doxycycline and Zosyn. Will repeat a CBC CMP, lactic acid, and also ordered chest abdomen pelvis CT. Repeat blood culture and urine culture she is hemodynamically stable Pneumonia Chest x-ray shows interstitial patchy infiltrate both lungs, suggesting atypical pneumonia, possible aspiration pneumonia Patient on vancomycin, doxycycline and Zosyn IV Acute respiratory failure with hypoxemia Likely secondary pneumonia Continue O2 therapy to keep pulse ox above 92 UTI UA shows pyuria and microscopic hematuria Follow-up urine culture, Gram-negative bacilli Antibiotics see above New onset AFib and RVR No history of RVR Patient is noted have AFib on telemetry monitoring in the morning, heart rate above 170 Likely secondary to sepsis Blood pressure was soft, may not be able to tolerate Cardizem and beta-ajay Start amiodarone 150 mg once and amiodarone drip Follow-up echocardiogram Follow-up TSH Consult cardiology for evaluation treatment Elevated troponin Likely secondary to sepsis EKG shows AFib no specific ST-T changes Follow echocardiogram Consult origination specialist for evaluation Start aspirin 325 mg once 81 mg daily p.o.. History of seizure Currently patient on Keppra drip, will switch to oral medication when patient is able to tolerate oral diet Hypokalemia Replace with potassium chloride Follow-up magnesium level Follow-up BMP Replete electrolytes accordingly ?Thrombocytopenia: The patient has had a history of cirrhosis of the liver.? No anticoagulation is administer at this time for DVT prophylaxis.? Because of her low platelets. 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 I also Consult shotblast operator for evaluation and treatment Patient may stay
[2023-01-23 17:25] LABS: Appearance Urine Clear (Clear); Bacteria Urine None Seen /hpf; Bilirubin Urine Negative (Negative); Blood Urine 1+ (Negative); Color Urine Yellow (Yellow); Glucose Urine UA Negative (Negative); Hyaline Casts Urine Present /lpf; Ketones Urine Negative (Negative); Leukocyte Esterase Ur 2+ LEU/UL (Negative); Nitrate Urine Negative (Negative); Protein Urine 1+ mg/dL (Negative); Specific Grav Ur 1.016 (1.001-1.035); Squamous Epithelial Cell Urine Occasional /hpf (Few); Urobilinogen Urine 0.2 mg/dL (<2.0); WBC Urine 21-50 /hpf
[2023-01-23 17:27] LABS: Add Urine Microscopic? YES
--- NOTE | 2023-01-23 17:30 | PC.NURSE ---
This patient, Patt López, was received from IMU on 01/23/23 at 1540. Report received from DARION Chen. Patient/family oriented to unit policies and routines
[2023-01-23 18:02] LABS: Alanine Aminotransferase 70 U/L (6-35); Albumin Level 2.6 g/dL (3.5-5.1); Alkaline Phosphatase 84 U/L (38-126); Anion Gap 3 mmol/L (8-16); Aspartate Amino Transferase 196 U/L (14-36); Blood Urea Nitrogen 17 mg/dL (7-17); Calcium 7.7 mg/dL (8.4-10.2); Carbon Dioxide 18 mmol/L (22-30); Chloride 111 mmol/L (98-107); Estimated CRCL calculation 66 ml/min; Estimated Glomerular Filt Rate > 60; Glucose 79 mg/dL (65-110); Potassium 3.6 mmol/L (3.4-5.0); Sodium 132 mmol/L (137-145)
[2023-01-23 18:07] LABS: Hematocrit 29.5 % (37.0-47.0); Hemoglobin 8.5 g/dL (12.0-15.0); Immature Platelet Fraction Pct 13.1 % (0.9-11.2); Mean Corpuscular HGB Conc 28.8 g/dl (32-36); Mean Corpuscular Hemoglobin 22.4 pg (26-34); Mean Corpuscular Volume 77.8 fl (80-100); Platelet Count Result 39 k/mm3 (150-375); Red Blood Count 3.79 M/mm3 (4.2-5.4); Red Cell Distribution Width 20.5 % (11.5-14.5); White Blood Count 9.8 K/mm3 (4.5-10.0)
[2023-01-23 18:15] LABS: Lactic Acid Reflex 2.7 mmol/L (0.7-2.0)
[2023-01-23] MEDS: SODIUM CHLORIDE 0.9% IV 500 ML IV CONT (18:30)
[2023-01-23 18:40] LABS: Lymphocytes Absolute Manual 1.27 K/mm3 (1.1-4.5); Monocytes Absolute Manual 1.07 K/mm3 (0.1-0.90); Monocytes Percent Manual 11 % (3-9); Neutrophils Percent Manual 76 % (46-73); Total Cells Counted 100
[2023-01-23 18:41] LABS: Platelet Estimate Decreased (Adequate)
[2023-01-23 18:42] LABS: Anisocytosis 3+ (NORMAL); Hypochromasia 1+ (NORMAL); Schistocytes 1+ (NORMAL)
--- NOTE | 2023-01-23 19:19 | PC.NURSE ---
This patient, Patt López, was transferred to IMU on 01/23/23 at 1900. Personal belongings sent with patient. Report given to DARION Chen. Notified patient's daughter, Maribeth. Appropriate documentation sent with patient.
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
--- NOTE | 2023-01-23 19:48 | WPDANESEPP ---
Anes - Eval Pre Procedure Procedure: Cysto with stent possible stone extraction YAZAN Date/Time: 01/23/23 19:48 Surgeon: Osman Pre Op Diagnosis: Sepsis Patient Data Age: 57 Gender: F Height: 1.55 m Weight: 60.5 kg Last Vital Signs Temp 98.4 F 01/23/23 19:27 Pulse 94 01/23/23 19:27 Resp 20 01/23/23 19:27 BP 115/63 01/23/23 19:27 Pulse Ox 100 01/23/23 19:27 O2 Del Method High Flow Nasal Cannula 01/23/23 08:05 O2 Flow Rate 3 01/23/23 08:05 FiO2 28 01/22/23 04:08 Allergies Allergy/AdvReac Type Severity Reaction Status Date / Time Sulfa (Sulfonamide Allergy Unknown Verified 01/21/23 09:29 Antibiotics) Home Medications Medication Instructions Recorded Confirmed Type acetaminophen 500 mg tablet 500 mg PO Q6H PRN Pain 01/21/23 01/21/23 History alprazolam 0.5 mg tablet (Xanax) 0.5 mg PO Q12H 01/21/23 01/21/23 History bisacodyl 10 mg rectal suppository 10 mg RECTAL DAILY PRN Constipation 01/21/23 01/21/23 History famotidine 20 mg tablet 20 mg PO DAILY 01/21/23 01/21/23 History levetiracetam 500 mg tablet 500 mg PO Q12H 01/21/23 01/21/23 History midodrine 5 mg tablet 5 mg PO TIDWM 01/21/23 01/21/23 History oxybutynin chloride 5 mg 5 mg PO DAILY 01/21/23 01/21/23 History tablet,extended release 24 hr oxycodone 5 mg tablet 5 mg PO Q4H PRN Pain 01/21/23 01/21/23 History polyethylene glycol 3350 17 gram 17 g PO DAILY PRN Constipation 01/21/23 01/21/23 History oral powder packet (Miralax) venlafaxine 75 mg capsule,extended 75 mg PO DAILY 01/21/23 01/21/23 History release 24 hr (Effexor XR) Laboratory Tests 01/23/23 01/23/23 01/23/23 06:16 10:14 16:16 WBC 8.7 K/mm3 (4.5-10.0) RBC 3.33 L M/mm3 (4.2-5.4) Hgb 7.7 L g/dL (12.0-15.0) Hct 25.8 L % (37.0-47.0) MCV 77.5 L fl (80-100) MCH 23.1 L pg (26-34) MCHC 29.8 L g/dl (32-36) RDW 20.7 H % (11.5-14.5) Plt Count 41 L k/mm3 (150-375) MPV TNP Immature Gran % (Auto) Neut % (Auto) Lymph % (Auto) [place] % (Auto) Eos % (Auto) Baso % (Auto) Lymph # (Auto) [place] # (Auto) Eos # (Auto) Baso # (Auto) Abs Immat Gran (auto) Absolute Neuts (auto) Absolute Nucleated RBC Total Counted Neutrophils % (Manual) Lymphocytes % (Manual) Monocytes % (Manual) Nucleated RBC % Abs Lymphs (Manual) Abs Monocytes (Manual) Platelet Estimate % Immature Plt Fraction 14.3 H % (0.9-11.2) Hypochromasia Anisocytosis Schistocytes Sodium 135 L mmol/L (137-145) Potassium 3.0 L mmol/L (3.4-5.0) Chloride 112 H mmol/L (98-107) Carbon Dioxide 23 mmol/L (22-30) Anion Gap 0 L mmol/L (8-16) BUN 25 H D mg/dL (7-17) Creatinine 0.70 mg/dL (0.7-1.0) Estim Creat Clear Calc 57 ml/min Estimated GFR > 60 (59 - ) Glucose 97 mg/dL (65-110) POC Capillary Glucose 98 mg/dl (65-105) Lactic Acid Calcium 7.6 L mg/dL (8.4-10.2) Iron 23 L ug/dL (37-170) TIBC 355 ug/dL (261-462) % Saturation 6 L % (20-50) Ferritin 36.50 ng/mL (11.1-264) Total Bilirubin 1.5 H mg/dL (0.2-1.3) AST 179 H U/L (14-36) ALT 64 H U/L (6-35) Alkaline Phosphatase 65 U/L (38-126) Total Protein 5.0 L g/dL (6.3-8.2) Albumin 2.3 L g/dL (3.5-5.1) Urine Color Urine Appearance Urine pH Ur Specific [place] Urine Protein Urine Glucose (UA) Urine Ketones
--- NOTE | 2023-01-23 19:49 | PC.NURSE ---
This patient, Patt López, was received from [facility] on 01/23/23 at 1900. Patient/family oriented to unit policies and routines.
--- NOTE | 2023-01-23 19:49 | PM.EVENT ---
Event Note Event Note Event Note: 01/23/2023 19:35 I received a call from the patient's nurse with updates. The patient spiked a temperature to 104? F this evening, is tachycardic, tachypneic, and her lactic acid level is elevated. CT scan of the chest, abdomen, and pelvis this evening showed multifocal pneumonia, dilated loops of small bowel consistent with ileus versus partial obstruction, and mild right hydroureteronephrosis with suggestion of distal right ureteral calculus. She has been on doxycycline, vancomycin, and Zosyn though the vancomycin was discontinued today as her urine cultures growing Gram-negative bacteria and her blood cultures have grown Proteus mirabilis. With her change in condition was felt that she would likely need a cystoscopy and stent placement and I evaluated the patient after speaking with Dr. Brewer. She is chronically ill with history of traumatic brain injury, seizure disorder, hepatitis C, and chronic pain syndrome. Today's labs were significant for hemoglobin of 8.5, hematocrit 29.5%, platelet count 39, lactic acid 2.7, total bilirubin 2.0, AST 186, ALT 70, creatinine 0.60, total protein 6.0, albumin 2.6. She looks acutely ill at the time my evaluation. She is alert and oriented x2 (self, date of , she is aware that she is in the hospital but cannot provide much history). She is pale and diaphoretic. Tachypneic and tachycardic. Lung sounds are coarse throughout. Abdomen is distended with hypoactive bowel sounds. She is tender to palpation throughout the abdomen but more so on the right side. Peripheral pulses intact. Extremities are warm with normal capillary refill. She voiced no complaints but was in obvious distress and discomfort. Nurse an urologist had extensive discussions with the patient's daughter. She is in serious condition and though she does have the possibility of declining during surgery, if she does not have this surgery her condition may worsen to the point were she may not survive. Daughter opted to revoked her DNR status and change her to a full code for the surgery. She would consent to central line and vasopressor therapy if needed. A total of 35 minutes critical care time was spent in attention of this patient.
[2023-01-23] MEDS: SODIUM CHLORIDE 0.9% IV 1,000 ML 100 ML IV CONT (20:19)
--- NOTE | 2023-01-23 20:40 | PC.NURSE ---
Patient to OR with RNs via bed
--- NOTE | 2023-01-23 20:44 | WPDANESEPPF ---
Anes - Initial Pre Proc Eval Procedure: Operation Date: 01/23/23 20:20 Proposed Procedures p Cysto, RPG, Stone Ext, Stent Placement - Tracie Brewer MD Date/Time: 01/23/23 20:44 Surgeon: Kalen Mendes MD Pre Op Diagnosis: Sepsis Patient Data Age: 57 Gender: F Height: 1.55 m Weight: 60.5 kg Last Vital Signs Temp 36.9 C 01/23/23 19:27 Pulse 96 01/23/23 20:36 Resp 20 01/23/23 20:36 BP 115/63 01/23/23 19:27 Pulse Ox 98 01/23/23 20:36 O2 Del Method High Flow Nasal Cannula 01/23/23 20:36 O2 Flow Rate 3 01/23/23 20:36 FiO2 28 01/22/23 04:08 Allergies Allergy/AdvReac Type Severity Reaction Status Date / Time Sulfa (Sulfonamide Allergy Unknown Verified 01/21/23 09:29 Antibiotics) Home Medications Medication Instructions Recorded Confirmed Type acetaminophen 500 mg tablet 500 mg PO Q6H PRN Pain 01/21/23 01/21/23 History alprazolam 0.5 mg tablet (Xanax) 0.5 mg PO Q12H 01/21/23 01/21/23 History bisacodyl 10 mg rectal suppository 10 mg RECTAL DAILY PRN Constipation 01/21/23 01/21/23 History famotidine 20 mg tablet 20 mg PO DAILY 01/21/23 01/21/23 History levetiracetam 500 mg tablet 500 mg PO Q12H 01/21/23 01/21/23 History midodrine 5 mg tablet 5 mg PO TIDWM 01/21/23 01/21/23 History oxybutynin chloride 5 mg 5 mg PO DAILY 01/21/23 01/21/23 History tablet,extended release 24 hr oxycodone 5 mg tablet 5 mg PO Q4H PRN Pain 01/21/23 01/21/23 History polyethylene glycol 3350 17 gram 17 g PO DAILY PRN Constipation 01/21/23 01/21/23 History oral powder packet (Miralax) venlafaxine 75 mg capsule,extended 75 mg PO DAILY 01/21/23 01/21/23 History release 24 hr (Effexor XR) Laboratory Tests 01/23/23 01/23/23 01/23/23 06:16 10:14 16:16 WBC 8.7 K/mm3 (4.5-10.0) RBC 3.33 L M/mm3 (4.2-5.4) Hgb 7.7 L g/dL (12.0-15.0) Hct 25.8 L % (37.0-47.0) MCV 77.5 L fl (80-100) MCH 23.1 L pg (26-34) MCHC 29.8 L g/dl (32-36) RDW 20.7 H % (11.5-14.5) Plt Count 41 L k/mm3 (150-375) MPV TNP Immature Gran % (Auto) Neut % (Auto) Lymph % (Auto) [place] % (Auto) Eos % (Auto) Baso % (Auto) Lymph # (Auto) [place] # (Auto) Eos # (Auto) Baso # (Auto) Abs Immat Gran (auto) Absolute Neuts (auto) Absolute Nucleated RBC Total Counted Neutrophils % (Manual) Lymphocytes % (Manual) Monocytes % (Manual) Nucleated RBC % Abs Lymphs (Manual) Abs Monocytes (Manual) Platelet Estimate % Immature Plt Fraction 14.3 H % (0.9-11.2) Hypochromasia Anisocytosis Schistocytes Sodium 135 L mmol/L (137-145) Potassium 3.0 L mmol/L (3.4-5.0) Chloride 112 H mmol/L (98-107) Carbon Dioxide 23 mmol/L (22-30) Anion Gap 0 L mmol/L (8-16) BUN 25 H D mg/dL (7-17) Creatinine 0.70 mg/dL (0.7-1.0) Estim Creat Clear Calc 57 ml/min Estimated GFR > 60 (59 - ) Glucose 97 mg/dL (65-110) POC Capillary Glucose 98 mg/dl (65-105) Lactic Acid Calcium 7.6 L mg/dL (8.4-10.2) Iron 23 L ug/dL (37-170) TIBC 355 ug/dL (261-462) % Saturation 6 L % (20-50) Ferritin 36.50 ng/mL (11.1-264) Total Bilirubin 1.5 H mg/dL (0.2-1.3) AST 179 H U/L (14-36) ALT 64 H U/L (6-35) Alkaline Phosphatase 65 U/L (38-126) Total Protein 5.0 L g/dL (6.3-8.2) Albumin 2.3 L g/dL (3.5-5.1) Urine Color Urine Appearance Urine pH Ur Specific [place]
[2023-01-23 21:03] LABS: Reflex Lactic Acid Yes or No Add Lactic
--- NOTE | 2023-01-23 21:12 | P.OP_ITS ---
Procedure Note - Detailed Date of Procedure 01/23/23 Pre-op Diagnosis Sepsis, right hydronephrosis Post-op Diagnosis Same Procedure Performed Cystoscopy, right retrograde pyelogram, right ureteral stent insertion, Weinberg catheter insertion Surgeon Tracie Brewer MD Anesthesia General Description of Procedure Informed consent was obtained. Patient taken operating. She was given preoperative IV antibiotics on the floor. She was induced anesthesia she was then prepped and draped in normal sterile fashion. A 22 F cystoscope was inserted through the urethra into the bladder. Inspection of bladder revealed changes associated with her previous Weinbreg catheter, however no other mucosal abnormalities. The patient had bilateral orthotopic ureteral visit. I cannulated the right ureteral orifice and then use a 5 F open-ended catheter to perform retrograde pyelogram showing mild right hydronephrosis. Aspiration of urine from the collecting system was sent for culture. Over wire we then placed a 6 F variable length stent with a curl in the upper pole curl in the bladder inspection the bladder at this point did reveal that stone fragments had now passed from the distal ureter into the bladder. The bladder was then drained with a Weinberg catheter. The patient was taken recovery room in guarded but st able condition Urine Output 820 Complications No immediate complications Condition Stable Disposition PACU
[2023-01-23] MEDS: LACTATED RINGERS 1,000 ML 30 ML IV CONT (21:17)
--- NOTE | 2023-01-23 22:00 | PC.NURSE ---
Patient back from OR via bed.
[2023-01-23] MEDS: VANCOMYCIN 1,250 MG/NS 250 ML 1,250 MG/250 ML BAG 166.67 MG IVPB (22:06)
[2023-01-23 22:12] LABS: Glucose Point of Care 155 mg/dl (65-105)
[2023-01-23 23:35] LABS: Lactic Acid 2.5 mmol/L (0.7-2.0)
[2023-01-23] MEDS: levETIRAcetam 500MG/NACL 100ML 500 MG/100 ML BAG 400 MG IVPB (23:39)
[2023-01-24] VITALS (32 sets, daily range): BP systolic 114–137; BP diastolic 53–73; PULSE 89–115; RESP 18–24; TEMP 36.3–38.4; O2SAT 91–100
[2023-01-24] MEDS: DOXYCYCLINE 100 MG/NS 100 ML 100 MG/100 ML BAG IVPB ×2 (00:27→08:54)
[2023-01-24] MEDS: PIPERACILLN/TAZ 3.375GM/NS50ML 3.375 GM/50 ML BAG IVPB ×3 (01:41→11:37)
[2023-01-24] MEDS: LEVALBUTEROL NEB 1.25 MG/3 ML INHALATION ×4 (03:07→19:12)
[2023-01-24] MEDS: IPRATROPIUM BR 0.02% INH SOLN 0.5 MG/2.5 ML VIAL INHALATION ×4 (03:07→19:12)
[2023-01-24] MEDS: MORPHINE SULFATE (*CRX) 2 MG/ML INJ IV PUSH (03:45)
[2023-01-24 05:12] LABS: Estimated CRCL calculation 77 ml/min; Estimated Glomerular Filt Rate > 60
[2023-01-24] MEDS: levETIRAcetam 500MG/NACL 100ML 500 MG/100 ML BAG 400 MG IVPB ×2 (08:56→20:51)
[2023-01-24] MEDS: FAMOTIDINE 20 MG/2 ML VIAL IV PUSH ×2 (08:56→20:55)
--- NOTE | 2023-01-24 09:04 | PC.NURSE ---
Patient transported off the floor at 0904 by transport techs via stretcher to radiology for obstructive series.
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
--- NOTE | 2023-01-24 10:36 | PC.NURSE ---
Patient transported back to room at 1036 per transportation solutions manager via stretcher. Patient situated back in room and call light within reach. This RN to resume patient care.
--- NOTE | 2023-01-24 10:39 | WPDUROPN2 ---
Progress Note: A&P Assessment and Plan (1) Right ureteral stone: Code(s): N20.1 - Calculus of ureter Status: Acute Assessment and Plan: Stent in place, patient is doing well urologically. She will need definitive stone management once infection resolves as outpatient in 1-2 weeks. (2) Severe sepsis: Code(s): A41.9 - Sepsis, unspecified organism; R65.20 - Severe sepsis without septic shock Status: Acute Assessment and Plan: Continue Doxycycline and Zosyn, tailor to urine and blood culture sensitivity. The patient will keep anderson in until prior to discharge for maximum drainage, then ok to remove for voiding trial. Subjective Subjective Date/Time Seen: 01/24/23 10:39 Post Op day: 1 Interval history: POD #1 Cystoscopy, right retrograde pyelogram, right stent placement anderson placement Patient doing well today, she denies abdominal or flank pain from the stent or stone. She also denies dysuria and is not febrile. She is being evaluated for a bowel obstruction currently. WBC is stable at 9.8, creatinine is 0.50, urine and blood cultures are pending. She has an NG tube in place and is unable to speak well. Continues Doxycycline and Zosyn. Review of Systems Cardiovascular: Cardiovascular: Reports no additional cardiovascular complaints Respiratory: Respiratory: Reports no additional respiratory complaints Gastrointestinal: Gastrointestinal: Denies abdominal pain, Denies nausea and Denies vomiting Genitourinary: Genitourinary: Denies hematuria, Denies dysuria, Denies pelvic pain, Denies flank pain, Denies urinary incontinence, Denies urinary hesitancy and Denies urinary urgency Exam Const: General: cooperative and comfortable Chest: Chest palpation & inspection: normal inspection of the chest Resp: Effort & Inspection: normal respiratory effort Cardio: Rate: regular rate GI: GI Palp: Yes Soft to palpation and No Tenderness to palpation present (GI) : General: Yes no CVA tenderness Urinary Catheter: Urinary Catheter: patent and draining and urine clear Back/Spine/Pelvis: Back: no CVA tenderness Extrem: Right lower extremity: no edema Left lower extremity: no edema Objective Data Vital Signs Vital Signs: Vital Signs - 24 hr 01/23/23 12:00 01/23/23 12:00 01/23/23 13:15 Temperature 98.3 F Pulse Rate 103 H 100 109 H Respiratory Rate 24 H 18 Blood Pressure 123/55 L Pulse Oximetry 100 Oxygen Delivery Oxygen Flow Rate Fraction of Inspired Oxygen 01/23/23 13:24 01/23/23 16:13 01/23/23 16:00 Temperature 104 F H 104 F H Pulse Rate 115 H 103 H Respiratory Rate 20 32 H Blood Pressure 129/72 Pulse Oximetry 98 Oxygen Delivery Oxygen Flow Rate Fraction of Inspired Oxygen 01/23/23 16:36 01/23/23 17:30 01/23/23 16:00 Temperature 103.8 F H 103.4 F H Pulse Rate 104 H Respiratory Rate Blood Pressure Pulse Oximetry Oxygen Delivery Oxygen Flow Rate Fraction of Inspired Oxygen 01/23/23 17:13 01/23/23 19:27 01/23/23 20:34 Temperature 103.5 F H 98.4 F Pulse Rate 94 96 Respiratory Rate 20 20 Blood Pressure 115/63 Pulse Oximetry 100 Oxygen Delivery Oxygen Flow Rate Fraction of Inspired Oxygen 01/23/23 20:36 01/23/23 20:42 01/23/23 21:17 Temperature 100.6 F H Pulse Rate 96 97 115 H Respiratory Rate 20 20 25 H Blood Pressure 123/60 Pulse Oximetry 98 97 Oxygen Delivery High Flow Nasal Cannula Simple Face Mask Oxygen Flow Rate 3 8 Fraction of Inspired Oxygen 01/23/23 21:30 01/23/23 21:35 01/23/23 21:45 Temperature Pulse Rate 102 H 103 H Respiratory Rate 24 H 24 H Blood Pressure 120/54 L 120/54 L Pulse Oximetry 99 95 97 Oxygen Delivery Simple Face Mask Nasal Cannula Nasal Cannula Oxygen Flow Rate 8 4 3 Fraction of Inspired Oxygen 01/23/23 21:55 01/23/23 22:07 01/23/23 22:39 Temperature 97.9 F 97.9 F Pulse Rate 102 H 104 H 103 H Respiratory Rat
[2023-01-24] MEDS: SODIUM CHLORIDE 0.9% IV 1,000 ML 100 ML IV CONT (11:38)
[2023-01-24] MEDS: POTASSIUM CHLORIDE 20 MEQ PACKET (FOR LIQUID) 40 MEQ PO (11:38)
[2023-01-24] MEDS: METOPROLOL TARTRATE 12.5 MG TABLET PO ×2 (11:38→20:55)
[2023-01-24] MEDS: oxyCODONE HCL (*CRX) 5 MG TAB IR PO ×2 (12:10→18:53)
--- NOTE | 2023-01-24 15:00 | WPDANESPN ---
Anes - Prog Note Post-Op Date/Time: 01/24/23 15:00 Cardiovascular status: normal Respiratory status: normal Airway patency: baseline Mental status: baseline Post-Op hydration status: normal Vital Signs: Last Vital Signs Temp 99.7 F H 01/24/23 12:04 Pulse 115 H 01/24/23 13:43 Resp 22 H 01/24/23 13:43 BP 114/68 01/24/23 12:04 Pulse Ox 97 01/24/23 12:04 O2 Del Method Nasal Cannula 01/24/23 12:00 O2 Flow Rate 1 01/24/23 12:00 FiO2 32 01/24/23 07:46 Pain Score (VAS): 0 I/O: Intake & Output 01/23/23 01/24/23 01/24/23 23:59 07:59 15:59 Intake Total 1630 1210 370 Output Total 1780 500 100 Balance -150 710 270 Laboratory Tests 01/23/23 17:58 01/24/23 04:56 01/23/23 01/23/23 01/23/23 16:16 16:49 16:56 WBC RBC Hgb Hct MCV MCH MCHC RDW Plt Count MPV Immature Gran % (Auto) Neut % (Auto) Lymph % (Auto) [place] % (Auto) Eos % (Auto) Baso % (Auto) Lymph # (Auto) [place] # (Auto) Eos # (Auto) Baso # (Auto) Abs Immat Gran (auto) Absolute Neuts (auto) Absolute Nucleated RBC Total Counted Neutrophils % (Manual) Lymphocytes % (Manual) Monocytes % (Manual) Nucleated RBC % Abs Lymphs (Manual) Abs Monocytes (Manual) Platelet Estimate % Immature Plt Fraction Hypochromasia Anisocytosis Schistocytes Sodium 132 L Potassium 3.6 Chloride 111 H Carbon Dioxide 18 L Anion Gap 3 L BUN 17 Creatinine 0.60 L Estim Creat Clear Calc 66 Estimated GFR > 60 Glucose 79 POC Capillary Glucose 98 Lactic Acid Calcium 7.7 L Total Bilirubin 2.0 H AST 196 H ALT 70 H Alkaline Phosphatase 84 Total Protein 6.0 L Albumin 2.6 L Urine Color Yellow Urine Appearance Clear Urine pH 5.0 Ur Specific [place] 1.016 Urine Protein 1+ H Urine Glucose (UA) Negative Urine Ketones Negative Ur Blood (Man) 1+ H Urine Nitrate Negative Urine Bilirubin Negative Urine Urobilinogen 0.2 Leukocyte Esterase Rfl 2+ H Urine RBC 11-20 H Urine WBC 21-50 H Ur Squamous Epith Cells Occasional Urine Bacteria None seen Urine Casts 6-10 Hyaline Casts Present 01/23/23 01/23/23 01/23/23 17:58 22:10 22:59 WBC 9.8 RBC 3.79 L Hgb 8.5 L Hct 29.5 L MCV 77.8 L MCH 22.4 L MCHC 28.8 L RDW 20.5 H Plt Count 39 L MPV TNP Immature Gran % (Auto) Not Reportable Neut % (Auto) Not Reportable Lymph % (Auto) Not Reportable [place] % (Auto) Not Reportable Eos % (Auto) Not Reportable Baso % (Auto) Not Reportable Lymph # (Auto) Not Reportable [place] # (Auto) Not Reportable Eos # (Auto) Not Reportable Baso # (Auto) Not Reportable Abs Immat Gran (auto) Not Reportable Absolute Neuts (auto) Not Reportable Absolute Nucleated RBC Not Reportable Total Counted 100 Neutrophils % (Manual) 76 H Lymphocytes % (Manual) 13.0 L Monocytes % (Manual) 11 H Nucleated RBC % Not Reportable Abs Lymphs (Manual) 1.27 Abs Monocytes (Manual) 1.07 H Platelet Estimate Decreased % Immature Plt Fraction 13.1 H Hypochromasia 1+ Anisocytosis 3+ Schistocytes 1+ Sodium Potassium Chloride Carbon Dioxide Anion Gap BUN Creatinine Estim Creat Clear Calc Estimated GFR Glucose POC Capillary Glucose 155 H Lactic Acid 2.7 H 2.5 H Calcium Total Bilirubin AST ALT Alkaline Phosphatase Total Protein Albumin Urine Color Urine Appearance Urine pH Ur Specific [place] Urine Protein Urine Glucose (UA) Urine Ketones Ur Blood (Man) Urine Nitrate Urine Bilirubin Urine Urobilinogen Leukocyte Esterase Rfl Urine RBC Urine WBC Ur Squamous Epith Cells Urine Bacteria Urine Casts Hyaline Casts 01/24/23 04:56 WBC RBC Hgb Hct MCV
--- NOTE | 2023-01-24 15:37 | PM.IMPN ---
Progress Note: A&P Assessment and Plan (1) Pneumonia: Code(s): J18.9 - Pneumonia, unspecified organism Status: Acute (2) Hypokalemia: Code(s): E87.6 - Hypokalemia Status: Acute (3) Elevated troponin: Code(s): R77.8 - Other specified abnormalities of plasma proteins Status: Acute (4) Depression with anxiety: Code(s): F41.8 - Other specified anxiety disorders Status: Acute (5) Chronic GERD: Code(s): K21.9 - Gastro-esophageal reflux disease without esophagitis Status: Acute (6) Acute and chronic respiratory failure with hypoxia: Code(s): J96.21 - Acute and chronic respiratory failure with hypoxia Status: Acute (7) New onset a-fib: Code(s): I48.91 - Unspecified atrial fibrillation Status: Acute (8) Atrial fibrillation with RVR: Code(s): I48.91 - Unspecified atrial fibrillation Status: Acute (9) Altered mental status: Code(s): R41.82 - Altered mental status, unspecified Status: Acute (10) Bacteremia: Code(s): R78.81 - Bacteremia Status: Acute (11) Severe sepsis: Code(s): A41.9 - Sepsis, unspecified organism; R65.20 - Severe sepsis without septic shock Status: Acute (12) UTI (urinary tract infection): Code(s): N39.0 - Urinary tract infection, site not specified Status: Acute Plan Acute encephalopathy Patient is confused, likely secondary to sepsis and electrolyte disorder, pt appears less confused today Severe sepsis Patient has leukocytosis, tachycardia tachypnea, hypotension POA, likely resulting from pneumonia and UTI iv rocephin started Blood culture grows Proteus mirabilis Pneumonia Chest x-ray shows interstitial patchy infiltrate both lungs, suggesting atypical pneumonia, possible aspiration pneumonia Patient on rocephin IV Acute respiratory failure with hypoxemia Likely secondary pneumonia Continue O2 therapy to keep pulse ox above 92 UTI UA shows pyuria and microscopic hematuria Follow-up urine culture, Gram-negative bacilli Antibiotics see above New onset AFib and RVR No history of RVR Patient is noted have AFib on telemetry monitoring in the morning, heart rate above 170 Start amiodarone 150 mg once and amiodarone drip Follow-up echocardiogram PT is on iv metoprolol Elevated troponin Likely secondary to sepsis EKG shows AFib no specific ST-T changes Follow echocardiogram Consult pretzel twisting machine operator for evaluation Start aspirin 325 mg once 81 mg daily p.o.. History of seizure Currently patient on Keppra drip, will switch to oral medication when patient is able to tolerate oral diet Hypokalemia Replace with potassium chloride Follow-up magnesium level Follow-up BMP Replete electrolytes accordingly ?Thrombocytopenia: The patient has had a history of cirrhosis of the liver.? No anticoagulation is administer at this time for DVT prophylaxis.? Because of her low platelets. 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 No active bleeding, platelet 41 in the morning Chronic anemia Hemoglobin is trending down No obvious bleeding Constipation Pt made NPO with NG tube KUB reviwed NG tube can be removed STart soft diet today Subjective Date/time seen: 01/24/23 15:37 Interval history: Pt is NPO with NG tube in situ Pt is less confused today KUB shows no bowel obstruction Relatives concerned about headaches for pt no apparent confusion today Review of Systems Review of Systems: Pt is not confused complains of headache All systems reviewed & are unremarkable except as noted in HPI and below Exam Narrative: GENERAL: Ill-appearing, in no acute distress. Well-nourished. - EYES: EOMI. Anicteric. Left-sided scalp depressed due to previous years surgical treatment of brain tumor - HENT: Moist mucous membranes. - LUNGS: Clear to auscultation bilaterally, no wheezing, rhonchi, coarse breath sounds bilateral base
[2023-01-24 16:39] LABS: IFOB Positive Control Positive; Immunochemical Fecal Occult Bl Negative (N)
[2023-01-24] MEDS: cefTRIAXone 2 GM/NS 100 ML 2 GM/100 ML BAG IVPB (17:08)
[2023-01-24] MEDS: ALPRAZolam (*CRX) 0.5 MG TABLET PO (18:00)
[2023-01-24 20:34] LABS: Glucose Point of Care 134 mg/dl (65-105)
[2023-01-24] MEDS: DOXYCYCLINE HYCLATE 100 MG TABLET PO (20:55)
[2023-01-25] VITALS (22 sets, daily range): BP systolic 106–135; BP diastolic 49–80; PULSE 85–104; RESP 18–26; TEMP 36.5–38.1; O2SAT 93–100
[2023-01-25] MEDS: SODIUM CHLORIDE 0.9% IV 1,000 ML 100 ML IV CONT (01:20)
[2023-01-25] MEDS: LEVALBUTEROL NEB 1.25 MG/3 ML INHALATION ×4 (02:19→21:04)
[2023-01-25] MEDS: IPRATROPIUM BR 0.02% INH SOLN 0.5 MG/2.5 ML VIAL INHALATION ×4 (02:19→21:04)
[2023-01-25 05:10] LABS: Hemoglobin 7.6 g/dL (12.0-15.0); Immature Platelet Fraction Pct 15.1 % (0.9-11.2); Mean Corpuscular HGB Conc 28.1 g/dl (32-36); Mean Corpuscular Hemoglobin 21.8 pg (26-34); Mean Corpuscular Volume 77.6 fl (80-100); Platelet Count Result 61 k/mm3 (150-375); Red Blood Count 3.48 M/mm3 (4.2-5.4); Red Cell Distribution Width 21.2 % (11.5-14.5); White Blood Count 9.4 K/mm3 (4.5-10.0)
[2023-01-25 05:35] LABS: Anion Gap 6 mmol/L (8-16); Blood Urea Nitrogen 9 mg/dL (7-17); Calcium 7.3 mg/dL (8.4-10.2); Carbon Dioxide 19 mmol/L (22-30); Chloride 113 mmol/L (98-107); Estimated CRCL calculation 77 ml/min; Estimated Glomerular Filt Rate > 60; Glucose 100 mg/dL (65-110); Potassium 2.6 mmol/L (3.4-5.0); Sodium 138 mmol/L (137-145)
[2023-01-25 05:37] LABS: Band Neutrophils Percent 3 % (0-6); Basophils Absolute Manual 0.09 K/mm3 (0.0-0.1); Basophils Percent Manual 1 % (0-1); Eosinophils Absolute Manual 0.28 K/mm3 (0.02-0.5); Eosinophils Percent Manual 3 % (0-4); Lymphocytes Absolute Manual 1.22 K/mm3 (1.1-4.5); Monocytes Absolute Manual 0.94 K/mm3 (0.1-0.90); Monocytes Percent Manual 10 % (3-9); Neutrophils Absolute Manual 6.86 K/mm3 (1.7-7.2); Neutrophils Percent Manual 70 % (46-73); Platelet Estimate Decreased (Adequate); Total Cells Counted 100
[2023-01-25 05:38] LABS: Anisocytosis 1+ (NORMAL); Hypochromasia 1+ (NORMAL); Macrocytosis 1+ (NORMAL); Polychromasia 1+ (NORMAL)
[2023-01-25] MEDS: POTASSIUM CHLORIDE INJ 40 MEQ in SODIUM CHLORIDE 0.9% IV 500 ML 130 MEQ IVPB (06:35)
[2023-01-25 07:28] LABS: Schistocytes None Seen (NORMAL)
[2023-01-25] MEDS: FAMOTIDINE 20 MG/2 ML VIAL IV PUSH ×2 (09:21→20:55)
[2023-01-25] MEDS: DOXYCYCLINE HYCLATE 100 MG TABLET PO ×2 (09:21→20:56)
[2023-01-25] MEDS: METOPROLOL TARTRATE 12.5 MG TABLET PO ×2 (09:21→20:55)
[2023-01-25] MEDS: ACETAMINOPHEN 325 MG TABLET 650 MG PO (09:21)
[2023-01-25] MEDS: oxyCODONE HCL (*CRX) 5 MG TAB IR PO ×2 (09:28→20:59)
[2023-01-25] MEDS: ALPRAZolam (*CRX) 0.5 MG TABLET PO ×2 (09:28→20:59)
[2023-01-25] MEDS: levETIRAcetam 500 MG TABLET PO ×2 (12:54→20:56)
--- NOTE | 2023-01-25 13:11 | WPDUROPN2 ---
Progress Note: A&P Assessment and Plan (1) Right ureteral stone: Code(s): N20.1 - Calculus of ureter Status: Acute Assessment and Plan: Plan to do an outpatient Right ureteroscopy with stone removal and stent exchange, retrograde pyelogram, cystoscopy when she is stable in a few weeks to months. No further evaluation at this time. (2) Severe sepsis: Code(s): A41.9 - Sepsis, unspecified organism; R65.20 - Severe sepsis without septic shock Status: Acute Assessment and Plan: Repeat cultures are negative. Continue IV antibiotics. Subjective Subjective Date/Time Seen: 01/25/23 13:11 Post Op day: 2 Interval history: POD #2 Cystoscopy, right retrograde pyelogram, right stent placement anderson placement Patient's preliminary blood cultures are negative and urine cultures are negative, although she is febrile. KUB yesterday shows stent in place and distal ossific densities int he right ureter. Continues Doxycycline and Zosyn. She is tolerating her stent well. Review of Systems Cardiovascular: Cardiovascular: Denies chest pain Respiratory: Respiratory: Reports no additional respiratory complaints Gastrointestinal: Gastrointestinal: Denies abdominal pain, Denies nausea and Denies vomiting Genitourinary: Genitourinary: Denies hematuria, Denies nocturia, Denies dysuria, Denies pelvic pain, Denies flank pain, Denies urinary incontinence, Denies urinary hesitancy and Denies urinary urgency Exam Const: General: cooperative and in distress mild Resp: Effort & Inspection: normal respiratory effort Cardio: Rate: regular rate GI: GI Palp: Yes Soft to palpation and Yes Tenderness to palpation present (GI) : General: Yes no CVA tenderness Urinary Catheter: Urinary Catheter: patent and draining and urine dark Extrem: Right lower extremity: no edema Left lower extremity: no edema Objective Data Vital Signs Vital Signs: Vital Signs - 24 hr 01/24/23 13:19 01/24/23 13:43 01/24/23 14:00 Temperature Pulse Rate 101 H 115 H 114 H Respiratory Rate 22 H 22 H Blood Pressure Pulse Oximetry Oxygen Delivery Oxygen Flow Rate Fraction of Inspired Oxygen 01/24/23 15:56 01/24/23 17:18 01/24/23 16:00 Temperature 98.8 F Pulse Rate 93 Respiratory Rate 24 H Blood Pressure 137/73 Pulse Oximetry 91 95 95 Oxygen Delivery Room Air Oxygen Flow Rate Fraction of Inspired Oxygen 01/24/23 16:00 01/24/23 18:00 01/24/23 16:00 Temperature Pulse Rate 91 98 Respiratory Rate Blood Pressure Pulse Oximetry 95 Oxygen Delivery Room Air Oxygen Flow Rate Fraction of Inspired Oxygen 01/24/23 19:14 01/24/23 19:28 01/24/23 20:55 Temperature Pulse Rate 98 94 106 H Respiratory Rate 22 H 23 H Blood Pressure Pulse Oximetry Oxygen Delivery Oxygen Flow Rate Fraction of Inspired Oxygen 01/24/23 20:00 01/24/23 20:00 01/24/23 20:00 Temperature 101.2 F H Pulse Rate 114 H 111 H 106 H Respiratory Rate 22 H 22 H Blood Pressure 132/72 Pulse Oximetry 91 91 Oxygen Delivery Nasal Cannula Oxygen Flow Rate 2 Fraction of Inspired Oxygen 01/24/23 22:00 01/25/23 00:00 01/25/23 00:00 Temperature 97.7 F Pulse Rate 92 94 95 Respiratory Rate 22 H Blood Pressure 130/72 Pulse Oximetry 98 Oxygen Delivery Oxygen Flow Rate Fraction of Inspired Oxygen 01/25/23 00:00 01/25/23 02:00 01/25/23 02:21 Temperature Pulse Rate 95 95 93 Respiratory Rate 22 H 22 H Blood Pressure Pulse Oximetry 98 Oxygen Delivery Nasal Cannula Oxygen Flow Rate 1 Fraction of Inspired Oxygen 01/25/23 04:00 01/25/23 04:00 01/25/23 04:00 Temperature 97.7 F Pulse Rate 93 100 97 Respiratory Rate 22 H 22 H Blood Pressure 135/80 Pulse Oximetry 98 96 Oxygen Delivery Nasal Cannula Oxygen Flow Rate 1 Fraction of Inspired Oxygen 01/25/23 06:00 01/24/23 21:00 [facility]23 [facility]
--- NOTE | 2023-01-25 13:55 | PM.IMPN ---
Progress Note: A&P Assessment and Plan (1) Pneumonia: Code(s): J18.9 - Pneumonia, unspecified organism Status: Acute (2) Hypokalemia: Code(s): E87.6 - Hypokalemia Status: Acute (3) Elevated troponin: Code(s): R77.8 - Other specified abnormalities of plasma proteins Status: Acute (4) Depression with anxiety: Code(s): F41.8 - Other specified anxiety disorders Status: Acute (5) Chronic GERD: Code(s): K21.9 - Gastro-esophageal reflux disease without esophagitis Status: Acute (6) Acute and chronic respiratory failure with hypoxia: Code(s): J96.21 - Acute and chronic respiratory failure with hypoxia Status: Acute (7) New onset a-fib: Code(s): I48.91 - Unspecified atrial fibrillation Status: Acute (8) Atrial fibrillation with RVR: Code(s): I48.91 - Unspecified atrial fibrillation Status: Acute (9) Altered mental status: Code(s): R41.82 - Altered mental status, unspecified Status: Acute (10) Bacteremia: Code(s): R78.81 - Bacteremia Status: Acute (11) Severe sepsis: Code(s): A41.9 - Sepsis, unspecified organism; R65.20 - Severe sepsis without septic shock Status: Acute (12) UTI (urinary tract infection): Code(s): N39.0 - Urinary tract infection, site not specified Status: Acute Plan Acute encephalopathy Patient is confused, likely secondary to sepsis and electrolyte disorder, pt appears less confused today Severe sepsis Patient has leukocytosis, tachycardia tachypnea, hypotension POA, likely resulting from pneumonia and UTI iv rocephin started and oral doxycycline Blood culture grows Proteus mirabilis Pneumonia Chest x-ray shows interstitial patchy infiltrate both lungs, suggesting atypical pneumonia, possible aspiration pneumonia Patient on rocephin IV and oral doxycyycline Acute respiratory failure with hypoxemia Likely secondary pneumonia Continue O2 therapy to keep pulse ox above 92 UTI UA shows pyuria and microscopic hematuria Follow-up urine culture, Gram-negative bacilli Antibiotics see above New onset AFib and RVR No history of RVR Patient is noted have AFib on telemetry monitoring in the morning, heart rate above 170 Start amiodarone 150 mg daily Follow-up echocardiogram Elevated troponin Likely secondary to sepsis EKG shows AFib no specific ST-T changes Follow echocardiogram Consult blood coordinator for evaluation Start aspirin 325 mg once 81 mg daily p.o.. History of seizure Currently patient on Keppra drip, will switch to oral medication when patient is able to tolerate oral diet Hypokalemia Replace with potassium chloride Follow-up magnesium level Follow-up BMP Replete electrolytes accordingly ?Thrombocytopenia: The patient has had a history of cirrhosis of the liver.? No anticoagulation is administer at this time for DVT prophylaxis.? Because of her low platelets. 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 No active bleeding, platelet 41 in the morning Chronic anemia Hemoglobin is trending down venofer x3 days ordered for hb 7 constipation continue laxatives STart soft diet today Subjective Date/time seen: 01/25/23 13:55 Interval history: Pt is less confused today pt slowly improving admitted with sepsis, UTI pneumonia and AF pt labs are abnl today venofer x3 days ordered for severe anemia continue iv abx and oxygen change to oral keppra Review of Systems Review of Systems: tired sob cough and generalised weakness All systems reviewed & are unremarkable except as noted in HPI and below Objective Data Vital Signs Vital Signs: Vital Signs - 24 hr 01/24/23 14:00 01/24/23 15:56 01/24/23 17:18 Temperature Pulse Rate 114 H Respiratory Rate Blood Pressure Pulse Oximetry 91 95 Oxygen Delivery Room Air Oxygen Flow Rate Fraction of Inspired Oxygen 01/24/23 1
[2023-01-25] MEDS: POTASSIUM CHLORIDE 20 MEQ PACKET (FOR LIQUID) 40 MEQ PO ×2 (15:37→18:17)
[2023-01-25] MEDS: cefTRIAXone 2 GM/NS 100 ML 2 GM/100 ML BAG IVPB (18:17)
[2023-01-25 23:11] LABS: Potassium 3.3 mmol/L (3.4-5.0)
[2023-01-26] VITALS (27 sets, daily range): BP systolic 106–129; BP diastolic 50–64; PULSE 85–109; RESP 18–28; TEMP 37–38.2; O2SAT 93–99
--- NOTE | 2023-01-26 00:55 | PC.NURSE ---
This patient, Patt López, was transferred to [[facility]] on 01/26/23 at 0055. Personal belongings sent with patient. Report given to [DARION Lutz]. Appropriate documentation sent with patient.
--- NOTE | 2023-01-26 01:11 | PC.NURSE ---
Received pt from IMU. Pt alert and oriented. Pt introduced to staff and given instructions residential pest control technician [place].
[2023-01-26] MEDS: LEVALBUTEROL NEB 1.25 MG/3 ML INHALATION ×4 (02:45→20:32)
[2023-01-26] MEDS: IPRATROPIUM BR 0.02% INH SOLN 0.5 MG/2.5 ML VIAL INHALATION ×4 (02:45→20:32)
[2023-01-26 05:45] LABS: Hemoglobin 7.6 g/dL (12.0-15.0); Mean Corpuscular HGB Conc 29.2 g/dl (32-36); Mean Corpuscular Hemoglobin 21.9 pg (26-34); Mean Corpuscular Volume 74.9 fl (80-100); Platelet Count Result 95 k/mm3 (150-375); Red Blood Count 3.47 M/mm3 (4.2-5.4); Red Cell Distribution Width 21.4 % (11.5-14.5); White Blood Count 12.3 K/mm3 (4.5-10.0)
[2023-01-26 05:50] LABS: Anion Gap 2 mmol/L (8-16); Blood Urea Nitrogen 9 mg/dL (7-17); Calcium 7.8 mg/dL (8.4-10.2); Carbon Dioxide 23 mmol/L (22-30); Chloride 111 mmol/L (98-107); Estimated CRCL calculation 94 ml/min; Estimated Glomerular Filt Rate > 60; Glucose 93 mg/dL (65-110); Magnesium 1.1 mg/dL (1.6-2.3); Potassium 3.2 mmol/L (3.4-5.0); Sodium 136 mmol/L (137-145)
--- NOTE | 2023-01-26 09:16 | PCPTNOTE ---
Spoke with current hospitalist Dr. Subramanian, who OK pt coming off of bedrest. RN aware.
[2023-01-26] MEDS: MAGNESIUM SULF 4 GM/WATER100ML 4 GM/100 ML BAG IVPB (09:21)
[2023-01-26] MEDS: DOXYCYCLINE HYCLATE 100 MG TABLET PO ×2 (10:23→20:47)
[2023-01-26] MEDS: FAMOTIDINE 20 MG/2 ML VIAL IV PUSH ×2 (10:23→20:47)
[2023-01-26] MEDS: POTASSIUM CHLORIDE 20 MEQ PACKET (FOR LIQUID) 40 MEQ PO ×2 (10:23→17:34)
[2023-01-26] MEDS: levETIRAcetam 500 MG TABLET PO ×2 (10:23→20:47)
[2023-01-26] MEDS: AMIODARONE HCL 100 MG TABLET PO (10:23)
[2023-01-26] MEDS: METOPROLOL TARTRATE 12.5 MG TABLET PO ×2 (10:24→20:47)
[2023-01-26] MEDS: AMIODARONE HCL 50 MG TABLET PO (10:26)
[2023-01-26] MEDS: oxyCODONE HCL (*CRX) 5 MG TAB IR PO ×2 (10:32→20:56)
--- NOTE | 2023-01-26 10:34 | PM.IMPN ---
Progress Note: A&P Assessment and Plan (1) Pneumonia: Code(s): J18.9 - Pneumonia, unspecified organism Status: Acute (2) Hypokalemia: Code(s): E87.6 - Hypokalemia Status: Acute (3) Elevated troponin: Code(s): R77.8 - Other specified abnormalities of plasma proteins Status: Acute (4) Depression with anxiety: Code(s): F41.8 - Other specified anxiety disorders Status: Acute (5) Chronic GERD: Code(s): K21.9 - Gastro-esophageal reflux disease without esophagitis Status: Acute (6) Acute and chronic respiratory failure with hypoxia: Code(s): J96.21 - Acute and chronic respiratory failure with hypoxia Status: Acute (7) New onset a-fib: Code(s): I48.91 - Unspecified atrial fibrillation Status: Acute (8) Atrial fibrillation with RVR: Code(s): I48.91 - Unspecified atrial fibrillation Status: Acute (9) Altered mental status: Code(s): R41.82 - Altered mental status, unspecified Status: Acute (10) Bacteremia: Code(s): R78.81 - Bacteremia Status: Acute (11) Severe sepsis: Code(s): A41.9 - Sepsis, unspecified organism; R65.20 - Severe sepsis without septic shock Status: Acute (12) UTI (urinary tract infection): Code(s): N39.0 - Urinary tract infection, site not specified Status: Acute Plan Acute encephalopathy Improving. likely secondary to sepsis and electrolyte disorder, pt appears less confused today Severe sepsis Patient has leukocytosis, tachycardia tachypnea, likely resulting from pneumonia and UTI iv rocephin and oral doxycycline Blood culture grows Proteus mirabilis Pneumonia Chest x-ray shows interstitial patchy infiltrate both lungs, suggesting atypical pneumonia, possible aspiration pneumonia Patient on rocephin IV and oral doxycyycline Acute respiratory failure with hypoxemia Likely secondary pneumonia Continue O2 therapy to keep pulse ox above 92 UTI UA shows pyuria and microscopic hematuria Follow-up urine culture, Gram-negative bacilli Antibiotics see above New onset AFib and RVR No history of RVR Patient is noted have AFib on telemetry monitoring in the morning, heart rate above 170 Start amiodarone 150 mg daily Follow-up echocardiogram Elevated troponin Likely secondary to sepsis EKG shows AFib no specific ST-T changes Follow echocardiogram Consult physical therapy manager for evaluation Start aspirin 325 mg once then 81 mg daily p.o.. History of seizure Resume Keppra p.o. Hypokalemia Replace with potassium chloride Hypo magnesemia Will replace with IV supplements follow-up magnesium level Follow-up BMP Replete electrolytes accordingly ?Thrombocytopenia: The patient has had a history of cirrhosis of the liver.? No anticoagulation is administer at this time for DVT prophylaxis.? Because of her low platelets. 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 Well-nourished. - EYES: EOMI. Anicteric. Left-sided scalp depressed due to previous years surgical treatment of brain tumor - HENT: Moist mucous membranes. - LUNGS: Clear to auscultation bilaterally, no wheezing, rhonchi, coarse breath sounds bilateral base - CARDIOVASCULAR: Irregularly irregular rhythm, tachycardia,. No murmur. No JVD. - ABDOMEN: Soft, non-tender and non-distended. No palpable masses. - EXTREMITIES: No edema. Peripheral pulses 2+. Non-tender. - NEUROLOGIC: No focal neurological deficits. CN II-XII grossly intact. - PSYCHIATRIC: Somnolent, not or
[2023-01-26] MEDS: ALPRAZolam (*CRX) 0.5 MG TABLET PO ×2 (10:38→20:56)
[2023-01-26] MEDS: IRON SUCROSE COMPLEX 100 MG in SODIUM CHLORIDE 0.9% IV 50 ML 220 MG IVPB (10:45)
[2023-01-26] MEDS: ACETAMINOPHEN 325 MG TABLET 650 MG PO (11:39)
--- NOTE | 2023-01-26 13:37 | PCPTNOTE ---
On 01/26/23, the student, YARELI Gallardo, provided care and completed [facility] documentation on this patient. I have reviewed the student's documentation and agree with the findings.
[2023-01-26] MEDS: AMOXICILLIN/CLAVULANATE K 875-125 MG TAB 1 TABLET PO (17:32)
[2023-01-27] VITALS (24 sets, daily range): BP systolic 100–122; BP diastolic 50–51; PULSE 88–102; RESP 18–28; TEMP 37–37.9; O2SAT 92–100
[2023-01-27] MEDS: IPRATROPIUM BR 0.02% INH SOLN 0.5 MG/2.5 ML VIAL INHALATION ×4 (02:20→20:51)
[2023-01-27] MEDS: LEVALBUTEROL NEB 1.25 MG/3 ML INHALATION ×4 (02:20→20:50)
[2023-01-27 05:55] LABS: Anion Gap 1 mmol/L (8-16); Blood Urea Nitrogen 10 mg/dL (7-17); Calcium 7.3 mg/dL (8.4-10.2); Carbon Dioxide 25 mmol/L (22-30); Chloride 111 mmol/L (98-107); Estimated CRCL calculation 119 ml/min; Estimated Glomerular Filt Rate > 60; Glucose 88 mg/dL (65-110); Magnesium 1.4 mg/dL (1.6-2.3); Potassium 2.9 mmol/L (3.4-5.0); Sodium 137 mmol/L (137-145)
[2023-01-27] MEDS: IRON SUCROSE COMPLEX 100 MG in SODIUM CHLORIDE 0.9% IV 50 ML 220 MG IVPB (08:33)
[2023-01-27] MEDS: ALPRAZolam (*CRX) 0.5 MG TABLET PO ×2 (08:34→20:46)
[2023-01-27] MEDS: levETIRAcetam 500 MG TABLET PO ×2 (08:34→20:46)
[2023-01-27] MEDS: oxyCODONE HCL (*CRX) 5 MG TAB IR PO ×2 (08:34→20:45)
[2023-01-27] MEDS: AMOXICILLIN/CLAVULANATE K 875-125 MG TAB 1 TABLET PO (08:34)
[2023-01-27] MEDS: AMIODARONE HCL 100 MG TABLET PO (08:34)
[2023-01-27] MEDS: FAMOTIDINE 20 MG/2 ML VIAL IV PUSH (08:34)
[2023-01-27] MEDS: POTASSIUM CHLORIDE 20 MEQ PACKET (FOR LIQUID) 40 MEQ PO (08:35)
[2023-01-27] MEDS: METOPROLOL TARTRATE 12.5 MG TABLET PO ×2 (08:35→20:45)
[2023-01-27] MEDS: AMIODARONE HCL 50 MG TABLET PO (08:35)
[2023-01-27] MEDS: POTASSIUM CHLORIDE 20 MEQ ER TABLET 40 MEQ PO (10:13)
[2023-01-27] MEDS: MAGNESIUM SULF 4 GM/WATER100ML 4 GM/100 ML BAG IVPB (10:13)
--- NOTE | 2023-01-27 10:19 | PM.IMPN ---
Progress Note: A&P Assessment and Plan (1) Pneumonia: Code(s): J18.9 - Pneumonia, unspecified organism Status: Acute (2) Hypokalemia: Code(s): E87.6 - Hypokalemia Status: Acute (3) Elevated troponin: Code(s): R77.8 - Other specified abnormalities of plasma proteins Status: Acute (4) Depression with anxiety: Code(s): F41.8 - Other specified anxiety disorders Status: Acute (5) Chronic GERD: Code(s): K21.9 - Gastro-esophageal reflux disease without esophagitis Status: Acute (6) Acute and chronic respiratory failure with hypoxia: Code(s): J96.21 - Acute and chronic respiratory failure with hypoxia Status: Acute (7) New onset a-fib: Code(s): I48.91 - Unspecified atrial fibrillation Status: Acute (8) Atrial fibrillation with RVR: Code(s): I48.91 - Unspecified atrial fibrillation Status: Acute (9) Altered mental status: Code(s): R41.82 - Altered mental status, unspecified Status: Acute (10) Bacteremia: Code(s): R78.81 - Bacteremia Status: Acute (11) Severe sepsis: Code(s): A41.9 - Sepsis, unspecified organism; R65.20 - Severe sepsis without septic shock Status: Acute (12) UTI (urinary tract infection): Code(s): N39.0 - Urinary tract infection, site not specified Status: Acute Plan Acute encephalopathy Improving. likely secondary to sepsis and electrolyte disorder, Severe sepsis Patient has leukocytosis, tachycardia tachypnea, likely resulting from pneumonia and UTI Continue iv rocephin and oral doxycycline Blood culture grows Proteus mirabilis Pneumonia Chest x-ray shows interstitial patchy infiltrate both lungs, suggesting atypical pneumonia, possible aspiration pneumonia Patient on rocephin IV and oral doxycycline UTI UA shows pyuria and microscopic hematuria Follow-up urine culture, Gram-negative bacilli Antibiotics see above New onset AFib and RVR No history of RVR Patient is noted have AFib on telemetry monitoring in the morning, heart rate above 170 Started amiodarone 150 mg daily Keep potassium around 4 and magnesium around 2 History of seizure Resume Keppra p.o. Hypokalemia Replace with potassium chloride Hypo magnesemia Will replace with IV supplements follow-up magnesium level Follow-up BMP Replete electrolytes accordingly ?Thrombocytopenia: The patient has had a history of cirrhosis of the liver.? No anticoagulation is administer at this time for DVT prophylaxis.? Because of her low platelets. 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 Well-nourished. - EYES: EOMI. Anicteric. Left-sided scalp depressed due to previous years surgical treatment of brain tumor - HENT: Moist mucous membranes. - LUNGS: Clear to auscultation bilaterally, no wheezing, rhonchi, coarse breath sounds bilateral base - CARDIOVASCULAR: Irregularly irregular rhythm, tachycardia,. No murmur. No JVD. - ABDOMEN: Soft, non-tender and non-distended. No palpable masses. - EXTREMITIES: No edema. Peripheral pulses 2+. Non-tender. - NEUROLOGIC: No focal neurological deficits. CN II-XII grossly intact. - PSYCHIATRIC: Somnolent, not oriented to place and time. Appropriate mood and affect. - SKIN: No rashes or lesions. Warm. - LYMPH: No cervical lymphadenopathy. Objective Data Vital Signs Vital Signs: Vital Signs - 24 hr 01/26/23 10:23 01/26/23 10:24 01/26/23 10:26 Temperature Pulse Rate 102 H 102 H 102 H Respiratory Rate Blood Pressure
--- NOTE | 2023-01-27 10:53 | PCNFU ---
Nutrition Follow-Up Complete: Suboptimal po intake related to appetite as evidenced by varied intake goal: PO intake 75% of meals or greater Patient is progressing towards goal. No new goal. Pt current nutrition is Regular. Last recorded weight is 79.2 kg. Bowel Motility:+Bm reported 01/25 Labs Reviewed:Cr 0.4,Mg 1.4 Meds Noted:Keppra Skin:WNL Additional Notes: Patient current with regular diet. Oral Intake 50-100% of most meals. Diet supplements of ensure compact given BID providing an additional 220 kcals and 9 gms protein. Agree with diet orders. Monitor intake, wt, labs. Follow up in 7 days.
[2023-01-27] MEDS: FUROSEMIDE INJ 40 MG/4 ML VIAL IV PUSH (11:40)
[2023-01-27] MEDS: ACETAMINOPHEN 325 MG TABLET 650 MG PO (11:46)
--- NOTE | 2023-01-27 14:28 | PC.NURSE ---
1300 zosyn and potassium given late due to pt in CT
[2023-01-27] MEDS: PIPERACILLIN/TAZ 4.5G/NS 100ML 4.5 GM/100 ML BAG IVPB ×2 (14:35→19:25)
[2023-01-27] MEDS: POTASSIUM CHLORIDE 20 MEQ ER TABLET 80 MEQ PO (14:36)
[2023-01-27 15:10] LABS: Hematocrit 25.7 % (37.0-47.0); Hemoglobin 7.5 g/dL (12.0-15.0); Immature Platelet Fraction Pct 11.5 % (0.9-11.2); Mean Corpuscular HGB Conc 29.2 g/dl (32-36); Mean Corpuscular Hemoglobin 22.8 pg (26-34); Mean Corpuscular Volume 78.1 fl (80-100); Platelet Count Result 135 k/mm3 (150-375); Red Blood Count 3.29 M/mm3 (4.2-5.4); Red Cell Distribution Width 22.5 % (11.5-14.5); White Blood Count 16.4 K/mm3 (4.5-10.0)
[2023-01-28] VITALS (27 sets, daily range): BP systolic 93–119; BP diastolic 39–54; PULSE 82–127; RESP 18–48; TEMP 36.6–38.3; O2SAT 93–99
[2023-01-28] MEDS: PIPERACILLIN/TAZ 4.5G/NS 100ML 4.5 GM/100 ML BAG IVPB ×4 (00:58→18:41)
[2023-01-28] MEDS: IPRATROPIUM BR 0.02% INH SOLN 0.5 MG/2.5 ML VIAL INHALATION ×4 (02:23→20:16)
[2023-01-28] MEDS: LEVALBUTEROL NEB 1.25 MG/3 ML INHALATION ×4 (02:23→20:16)
[2023-01-28 05:27] LABS: Anion Gap 1 mmol/L (8-16); Blood Urea Nitrogen 10 mg/dL (7-17); Calcium 7.2 mg/dL (8.4-10.2); Carbon Dioxide 28 mmol/L (22-30); Chloride 108 mmol/L (98-107); Estimated CRCL calculation 97 ml/min; Estimated Glomerular Filt Rate > 60; Glucose 94 mg/dL (65-110); Magnesium 1.6 mg/dL (1.6-2.3); Potassium 3.2 mmol/L (3.4-5.0); Sodium 137 mmol/L (137-145)
[2023-01-28] MEDS: AMIODARONE HCL 50 MG TABLET PO (09:44)
[2023-01-28] MEDS: POTASSIUM CHLORIDE 20 MEQ ER TABLET 40 MEQ PO ×3 (09:44→17:00)
[2023-01-28] MEDS: oxyCODONE HCL (*CRX) 5 MG TAB IR PO ×2 (09:45→20:15)
[2023-01-28] MEDS: METOPROLOL TARTRATE 12.5 MG TABLET PO ×2 (09:45→20:15)
[2023-01-28] MEDS: levETIRAcetam 500 MG TABLET PO ×2 (09:45→20:15)
[2023-01-28] MEDS: ALPRAZolam (*CRX) 0.5 MG TABLET PO (09:45)
[2023-01-28] MEDS: AMIODARONE HCL 100 MG TABLET PO (09:45)
--- NOTE | 2023-01-28 10:04 | P.PNIM_ITS ---
Progress Note: A&P Assessment and Plan (1) UTI (urinary tract infection): Code(s): N39.0 - Urinary tract infection, site not specified Status: Acute Assessment and Plan: * Klebsiella pneumonia * Continue Zosyn (2) Pneumonia: Qualifiers: Pneumonia type: due to unspecified organism Laterality: unspecified laterality Lung location: unspecified part of lung Qualified Code(s): J18.9 - Pneumonia, unspecified organism Code(s): J18.9 - Pneumonia, unspecified organism Status: Acute Assessment and Plan: * Possible aspiration due to encephalopathy * Continue Zosyn (3) Bacteremia: Code(s): R78.81 - Bacteremia Status: Acute Assessment and Plan: * Pansensitive Klebsiella pneumonia likely from urinary infection (4) Atrial fibrillation with RVR: Code(s): I48.91 - Unspecified atrial fibrillation Status: Acute Assessment and Plan: * Suspect due to infection, electrolyte abnormalities * Continue amiodarone and metoprolol * Continue to monitor on telemetry (5) Hypokalemia: Code(s): E87.6 - Hypokalemia Status: Acute Assessment and Plan: * Replace potassium and magnesium (6) Depression with anxiety: Code(s): F41.8 - Other specified anxiety disorders Status: Acute Assessment and Plan: * Clinically stable (7) Chronic GERD: Code(s): K21.9 - Gastro-esophageal reflux disease without esophagitis Status: Acute Assessment and Plan: * Clinically stable (8) Acute and chronic respiratory failure with hypoxia: Code(s): J96.21 - Acute and chronic respiratory failure with hypoxia Status: Acute Assessment and Plan: * Likely due to fluid overload and possible aspiration * 01/28/2023 furosemide 40 mg IV x1 (9) New onset a-fib: Code(s): I48.91 - Unspecified atrial fibrillation Status: Acute Assessment and Plan: * No prior history (10) Elevated troponin: Code(s): R77.8 - Other specified abnormalities of plasma proteins Status: Acute Assessment and Plan: * No acute coronary syndrome (11) Altered mental status: Qualifiers: Altered mental status type: disorientation Qualified Code(s): R41.0 - Disorientation, unspecified Code(s): R41.82 - Altered mental status, unspecified Status: Acute Assessment and Plan: * Consistent with metabolic encephalopathy that is resolving (12) Severe sepsis: Code(s): A41.9 - Sepsis, unspecified organism; R65.20 - Severe sepsis without septic shock Status: Acute Assessment and Plan: * Resolved (13) Hypocalcemia: Code(s): E83.51 - Hypocalcemia Status: Acute Assessment and Plan: * Check PTH, D, phos, mag, ionized calcium (14) Thrombocytopenia: Code(s): D69.6 - Thrombocytopenia, unspecified Status: Acute Assessment and Plan: * Likely due to cirrhosis with portal hypertension * Chronic * Monitor counts (15) Cirrhosis of liver: Code(s): K74.60 - Unspecified cirrhosis of liver Status: Acute (16) Chronic anemia: Code(s): D64.9 - Anemia, unspecified Status: Acute Assessment and Plan: * Chronic * Monitor CBC Subjective Date/time seen: 01/28/23 10:04 Interval history: Denied pain or shortness of breath. But is visibly tachypneic. Ate fairly well a breakfast. Denied pain. Denied GI or issues. Denied bleeding. Exam
--- NOTE | 2023-01-28 10:04 | PM.IMPN ---
Progress Note: A&P Assessment and Plan (1) UTI (urinary tract infection): Code(s): N39.0 - Urinary tract infection, site not specified Status: Acute Assessment and Plan: Klebsiella pneumonia Continue Zosyn (2) Pneumonia: Qualifiers: Pneumonia type: due to unspecified organism Laterality: unspecified laterality Lung location: unspecified part of lung Qualified Code(s): J18.9 - Pneumonia, unspecified organism Code(s): J18.9 - Pneumonia, unspecified organism Status: Acute Assessment and Plan: Possible aspiration due to encephalopathy Continue Zosyn (3) Bacteremia: Code(s): R78.81 - Bacteremia Status: Acute Assessment and Plan: Pansensitive Klebsiella pneumonia likely from urinary infection (4) Atrial fibrillation with RVR: Code(s): I48.91 - Unspecified atrial fibrillation Status: Acute Assessment and Plan: Suspect due to infection, electrolyte abnormalities Continue amiodarone and metoprolol Continue to monitor on telemetry (5) Hypokalemia: Code(s): E87.6 - Hypokalemia Status: Acute Assessment and Plan: Replace potassium and magnesium (6) Depression with anxiety: Code(s): F41.8 - Other specified anxiety disorders Status: Acute Assessment and Plan: Clinically stable (7) Chronic GERD: Code(s): K21.9 - Gastro-esophageal reflux disease without esophagitis Status: Acute Assessment and Plan: Clinically stable (8) Acute and chronic respiratory failure with hypoxia: Code(s): J96.21 - Acute and chronic respiratory failure with hypoxia Status: Acute Assessment and Plan: Likely due to fluid overload and possible aspiration 01/28/2023 furosemide 40 mg IV x1 (9) New onset a-fib: Code(s): I48.91 - Unspecified atrial fibrillation Status: Acute Assessment and Plan: No prior history (10) Elevated troponin: Code(s): R77.8 - Other specified abnormalities of plasma proteins Status: Acute Assessment and Plan: No acute coronary syndrome (11) Altered mental status: Qualifiers: Altered mental status type: disorientation Qualified Code(s): R41.0 - Disorientation, unspecified Code(s): R41.82 - Altered mental status, unspecified Status: Acute Assessment and Plan: Consistent with metabolic encephalopathy that is resolving (12) Severe sepsis: Code(s): A41.9 - Sepsis, unspecified organism; R65.20 - Severe sepsis without septic shock Status: Acute Assessment and Plan: Resolved (13) Hypocalcemia: Code(s): E83.51 - Hypocalcemia Status: Acute Assessment and Plan: Check PTH, D, phos, mag, ionized calcium (14) Thrombocytopenia: Code(s): D69.6 - Thrombocytopenia, unspecified Status: Acute Assessment and Plan: Likely due to cirrhosis with portal hypertension Chronic Monitor counts (15) Cirrhosis of liver: Code(s): K74.60 - Unspecified cirrhosis of liver Status: Acute (16) Chronic anemia: Code(s): D64.9 - Anemia, unspecified Status: Acute Assessment and Plan: Chronic Monitor CBC Subjective Date/time seen: 01/28/23 10:04 Interval history: Denied pain or shortness of breath. But is visibly tachypneic. Ate fairly well a breakfast. Denied pain. Denied GI or issues. Denied bleeding. Exam Narrative: GENERAL: Chronically ill-appearing. Mildly tachypneic but otherwise in no acute distress. - HEENT: Moist mucous membranes. Anicteric. Left-sided scalp depressed due to previous surgical treatment of brain tumor. -NECK: Mild JVD - LUNGS: Decreased breath sounds bilateral bases with no wheezes or crackles, mildly tachypneic - CARDIOVASCULAR: Irregularly irregular rhythm, tachycardia,. No murmur. - ABDOMEN: Soft, protuberant, non-tender. No palpable masses. - EXTREMITIES: T
[2023-01-28] MEDS: FUROSEMIDE INJ 40 MG/4 ML VIAL IV PUSH ×2 (11:32→14:49)
[2023-01-28] MEDS: MAGNESIUM SULF 2 GM/WATER 50ML 2 GM/50 ML BAG IVPB (11:37)
--- NOTE | 2023-01-28 12:02 | PCOTNOTE ---
RN reported pt is not appropriate for therapy this date. Irregular breathing patterns.
--- NOTE | 2023-01-28 12:43 | PCPTNOTE ---
The patient is not appropriate for therapy at this time, per RN. Will continue per PT plan of care.
[2023-01-28] MEDS: ACETAMINOPHEN 325 MG TABLET 650 MG PO ×2 (14:01→18:58)
[2023-01-28 15:19] LABS: Alveolar/Arterial O2 Gradient 100.7 mmHg; Base Excess ABG 3.6 mEq/l (+/-2.0); Fractional Inspired Oxygen 28 %; HCO3 ABG 25.9 mEq/l (22.0-26.0); Oxygen Content ABG 12.9 %vol (16.0-22.0); Oxygen Saturation ABG 94.5 % (95.0-100.0); Oxyhemoglobin 91.3 % THb (90.0-100.0); PO2 ABG 62.4 mmHg (80.0-100.0); PO2 FiO2 Ratio Arterial Blood 2.23 %
[2023-01-28 15:23] LABS: Device NASAL CANNULA; Modified Allen's Test Pass; Site Drawn LEFT RADIAL
[2023-01-28] MEDS: LORazepam INJ (*CRX) 2 MG/ML VIAL 0.5 MG IV PUSH (22:57)
[2023-01-29] VITALS (21 sets, daily range): BP systolic 99–102; BP diastolic 42–51; PULSE 76–110; RESP 16–32; TEMP 36.4–37; O2SAT 91–100
[2023-01-29] MEDS: oxyCODONE HCL (*CRX) 5 MG TAB IR PO ×3 (01:25→21:43)
[2023-01-29] MEDS: PIPERACILLIN/TAZ 4.5G/NS 100ML 4.5 GM/100 ML BAG IVPB ×4 (01:25→18:07)
[2023-01-29] MEDS: IPRATROPIUM BR 0.02% INH SOLN 0.5 MG/2.5 ML VIAL INHALATION ×4 (02:30→19:37)
[2023-01-29] MEDS: LEVALBUTEROL NEB 1.25 MG/3 ML INHALATION ×4 (02:30→19:37)
[2023-01-29 04:41] LABS: Hematocrit 24.7 % (37.0-47.0); Hemoglobin 7.2 g/dL (12.0-15.0); Immature Platelet Fraction Pct 11.4 % (0.9-11.2); Mean Corpuscular HGB Conc 29.1 g/dl (32-36); Mean Corpuscular Hemoglobin 23.2 pg (26-34); Mean Corpuscular Volume 79.4 fl (80-100); Platelet Count Result 139 k/mm3 (150-375); Red Blood Count 3.11 M/mm3 (4.2-5.4); Red Cell Distribution Width 24.3 % (11.5-14.5); White Blood Count 13.9 K/mm3 (4.5-10.0)
[2023-01-29 04:55] LABS: Anion Gap 1 mmol/L (8-16); Blood Urea Nitrogen 11 mg/dL (7-17); Calcium 7.3 mg/dL (8.4-10.2); Carbon Dioxide 33 mmol/L (22-30); Chloride 103 mmol/L (98-107); Estimated CRCL calculation 97 ml/min; Estimated Glomerular Filt Rate > 60; Glucose 85 mg/dL (65-110); Magnesium 1.6 mg/dL (1.6-2.3); Sodium 137 mmol/L (137-145)
[2023-01-29] MEDS: AMIODARONE HCL 50 MG TABLET PO (08:08)
[2023-01-29] MEDS: AMIODARONE HCL 100 MG TABLET PO (08:08)
[2023-01-29] MEDS: METOPROLOL TARTRATE 12.5 MG TABLET PO ×2 (09:49→21:38)
[2023-01-29] MEDS: LORazepam INJ (*CRX) 2 MG/ML VIAL 0.5 MG IV PUSH (09:49)
[2023-01-29] MEDS: levETIRAcetam 500 MG TABLET PO ×2 (09:49→21:38)
--- NOTE | 2023-01-29 11:49 | P.PNIM_ITS ---
Progress Note: A&P Assessment and Plan (1) Acute and chronic respiratory failure with hypoxia: Code(s): J96.21 - Acute and chronic respiratory failure with hypoxia Status: Acute Assessment and Plan: * Likely due to fluid overload and possible aspiration * 01/28/2023 furosemide 40 mg IV x2 * 01/29/2023 improved, continue furosemide 40mg iv x1 01/29, then 40mg po daily with KCl for hypokalemia * 01/23/2023 Echo showed: Summary ? 1. Complete two-dimensional, color flow and Doppler transthoracic echocardiogram is performed. ? 2. Normal left ventricular size thickness and systolic function. ? 3. Mildly calcified mitral valve annulus with trivial MR. ? 4. Normal sinus rhythm present during this exam( exam ordered because of AFib). (2) UTI (urinary tract infection): Qualifiers: Hematuria presence: without hematuria Urinary tract infection type: site unspecified Qualified Code(s): N39.0 - Urinary tract infection, site not specified Code(s): N39.0 - Urinary tract infection, site not specified Status: Acute Assessment and Plan: * Klebsiella pneumonia * Continue Zosyn (started 01/27/2023) (3) Pneumonia: Qualifiers: Laterality: unspecified laterality Lung location: unspecified part of l marie Pneumonia type: due to unspecified organism Qualified Code(s): J18.9 - Pneumonia, unspecified organism Code(s): J18.9 - Pneumonia, unspecified organism Status: Acute Assessment and Plan: * Possible aspiration due to encephalopathy * Continue Zosyn x 5 days for possible aspiration, then de-escalate to more targeted therapy to complete 7-10 day course for Klebsiella bacteremia (4) Bacteremia: Code(s): R78.81 - Bacteremia Status: Acute Assessment and Plan: * Pansensitive Klebsiella pneumonia likely from urinary infection (5) Atrial fibrillation with RVR: Code(s): I48.91 - Unspecified atrial fibrillation Status: Acute Assessment and Plan: * Suspect due to infection, electrolyte abnormalities * Continue amiodarone and metoprolol * Continue to monitor on telemetry (6) Hypokalemia: Code(s): E87.6 - Hypokalemia Status: Acute Assessment and Plan: * Replace potassium and magnesium (7) Depression with anxiety: Code(s): F41.8 - Other specified anxiety disorders Status: Acute Assessment and Plan: * Clinically stable (8) Chronic GERD: Code(s): K21.9 - Gastro-esophageal reflux disease without esophagitis Status: Acute Assessment and Plan: * Clinically stable (9) New onset a-fib: Code(s): I48.91 - Unspecified atrial fibrillation Status: Acute Assessment and Plan: * No prior history (10) Elevated troponin: Code(s): R77.8 - Other specified abnormalities of plasma proteins Status: Acute Assessment and Plan: * No acute coronary syndrome (11) Altered mental status: Qualifiers: Altered mental status type: disorientation Qualified Code(s): R41.0 - Disorientation, unspecified Code(s): R41.82 - Altered mental status, unspecified Status: Acute Assessment and Plan: * Consistent with metabolic encephalopathy that is resolving (12) Severe sepsis: Code(s): A41.9 - Sepsis, unspecified organism; R65.20 - Severe sepsis without septic shock Status: Acute Assessment and Plan: * Resolved (13) Hypocalcemia: Code(s): E83.51 - Hypocalcemia Status: Acute Assessment and Plan: *
--- NOTE | 2023-01-29 11:49 | PM.IMPN ---
Progress Note: A&P Assessment and Plan (1) Acute and chronic respiratory failure with hypoxia: Code(s): J96.21 - Acute and chronic respiratory failure with hypoxia Status: Acute Assessment and Plan: Likely due to fluid overload and possible aspiration 01/28/2023 furosemide 40 mg IV x2 01/29/2023 improved, continue furosemide 40mg iv x1 01/29, then 40mg po daily with KCl for hypokalemia 01/23/2023 Echo showed: Summary ? 1. Complete two-dimensional, color flow and Doppler transthoracic echocardiogram is performed. ? 2. Normal left ventricular size thickness and systolic function. ? 3. Mildly calcified mitral valve annulus with trivial MR. ? 4. Normal sinus rhythm present during this exam( exam ordered because of AFib). (2) UTI (urinary tract infection): Qualifiers: Hematuria presence: without hematuria Urinary tract infection type: site unspecified Qualified Code(s): N39.0 - Urinary tract infection, site not specified Code(s): N39.0 - Urinary tract infection, site not specified Status: Acute Assessment and Plan: Klebsiella pneumonia Continue Zosyn (started 01/27/2023) (3) Pneumonia: Qualifiers: Laterality: unspecified laterality Lung location: unspecified part of lung Pneumonia type: due to unspecified organism Qualified Code(s): J18.9 - Pneumonia, unspecified organism Code(s): J18.9 - Pneumonia, unspecified organism Status: Acute Assessment and Plan: Possible aspiration due to encephalopathy Continue Zosyn x 5 days for possible aspiration, then de-escalate to more targeted therapy to complete 7-10 day course for Klebsiella bacteremia (4) Bacteremia: Code(s): R78.81 - Bacteremia Status: Acute Assessment and Plan: Pansensitive Klebsiella pneumonia likely from urinary infection (5) Atrial fibrillation with RVR: Code(s): I48.91 - Unspecified atrial fibrillation Status: Acute Assessment and Plan: Suspect due to infection, electrolyte abnormalities Continue amiodarone and metoprolol Continue to monitor on telemetry (6) Hypokalemia: Code(s): E87.6 - Hypokalemia Status: Acute Assessment and Plan: Replace potassium and magnesium (7) Depression with anxiety: Code(s): F41.8 - Other specified anxiety disorders Status: Acute Assessment and Plan: Clinically stable (8) Chronic GERD: Code(s): K21.9 - Gastro-esophageal reflux disease without esophagitis Status: Acute Assessment and Plan: Clinically stable (9) New onset a-fib: Code(s): I48.91 - Unspecified atrial fibrillation Status: Acute Assessment and Plan: No prior history (10) Elevated troponin: Code(s): R77.8 - Other specified abnormalities of plasma proteins Status: Acute Assessment and Plan: No acute coronary syndrome (11) Altered mental status: Qualifiers: Altered mental status type: disorientation Qualified Code(s): R41.0 - Disorientation, unspecified Code(s): R41.82 - Altered mental status, unspecified Status: Acute Assessment and Plan: Consistent with metabolic encephalopathy that is resolving (12) Severe sepsis: Code(s): A41.9 - Sepsis, unspecified organism; R65.20 - Severe sepsis without septic shock Status: Acute Assessment and Plan: Resolved (13) Hypocalcemia: Code(s): E83.51 - Hypocalcemia Status: Acute Assessment and Plan: Check PTH, D, phos, mag, ionized calcium (14) Thrombocytopenia: Code(s): D69.6 - Thrombocytopenia, unspecified Status: Acute Assessment and Plan: Likely due to cirrhosis with portal hypertension Chronic Monitor counts (15) Cirrhosis of liver: Code(s): K74.60 - Unspecified cirrhosis of liver Status: Acute (16) Chronic anemia: Code(s): D64.9 - Anemia, unspecified Status: Acute
[2023-01-29] MEDS: MAGNESIUM SULF 2 GM/WATER 50ML 2 GM/50 ML BAG IVPB (12:25)
[2023-01-29] MEDS: FUROSEMIDE INJ 40 MG/4 ML VIAL IV PUSH (12:25)
[2023-01-29] MEDS: POTASSIUM CHLORIDE 20 MEQ ER TABLET 40 MEQ PO ×2 (12:25→21:38)
[2023-01-29] MEDS: ALPRAZolam (*CRX) 0.5 MG TABLET PO (21:43)
[2023-01-30] VITALS (16 sets, daily range): BP systolic 97–108; BP diastolic 47–61; PULSE 77–92; RESP 18–22; TEMP 36.1–38.6; O2SAT 93–100
[2023-01-30] MEDS: PIPERACILLIN/TAZ 4.5G/NS 100ML 4.5 GM/100 ML BAG IVPB ×2 (01:01→06:05)
[2023-01-30] MEDS: IPRATROPIUM BR 0.02% INH SOLN 0.5 MG/2.5 ML VIAL INHALATION ×4 (01:39→20:06)
[2023-01-30] MEDS: LEVALBUTEROL NEB 1.25 MG/3 ML INHALATION ×4 (01:39→20:06)
[2023-01-30 08:16] LABS: Anion Gap 1 mmol/L (8-16); Blood Urea Nitrogen 10 mg/dL (7-17); Calcium 7.2 mg/dL (8.4-10.2); Carbon Dioxide 32 mmol/L (22-30); Chloride 103 mmol/L (98-107); Estimated CRCL calculation 96 ml/min; Estimated Glomerular Filt Rate > 60; Glucose 85 mg/dL (65-110); Magnesium 1.7 mg/dL (1.6-2.3); Potassium 3.6 mmol/L (3.4-5.0); Sodium 136 mmol/L (137-145)
[2023-01-30] MEDS: levETIRAcetam 500 MG TABLET PO ×2 (08:22→20:33)
[2023-01-30] MEDS: AMIODARONE HCL 100 MG TABLET PO (08:22)
[2023-01-30] MEDS: METOPROLOL TARTRATE 12.5 MG TABLET PO ×2 (08:22→20:34)
[2023-01-30] MEDS: AMIODARONE HCL 50 MG TABLET PO (08:23)
[2023-01-30] MEDS: FUROSEMIDE 40 MG TABLET PO (08:23)
[2023-01-30] MEDS: POTASSIUM CHLORIDE 20 MEQ PACKET (FOR LIQUID) 40 MEQ PO (08:25)
[2023-01-30] MEDS: ALPRAZolam (*CRX) 0.5 MG TABLET PO ×2 (08:28→23:52)
[2023-01-30] MEDS: oxyCODONE HCL (*CRX) 5 MG TAB IR PO ×2 (08:28→20:40)
[2023-01-30 08:54] LABS: Hemoglobin 7.3 g/dL (12.0-15.0); Mean Corpuscular HGB Conc 29.2 g/dl (32-36); Mean Corpuscular Hemoglobin 23.8 pg (26-34); Mean Corpuscular Volume 81.4 fl (80-100); Platelet Count Result 134 k/mm3 (150-375); Red Blood Count 3.07 M/mm3 (4.2-5.4); Red Cell Distribution Width 26.6 % (11.5-14.5); White Blood Count 10.6 K/mm3 (4.5-10.0)
--- NOTE | 2023-01-30 09:52 | PCPTNOTE ---
On 01/30/23, the student, GUNJAN Taylor, provided care and completed [facility] documentation on this patient. I have reviewed the student's documentation and agree with the findings.
[2023-01-30] MEDS: AMOXICILLIN/CLAVULANATE K 875-125 MG TAB 1 TABLET PO ×2 (10:43→20:32)
[2023-01-30] MEDS: SPIRONOLACTONE 12.5 MG TABLET PO (10:43)
--- NOTE | 2023-01-30 11:24 | P.PNIM_ITS ---
Progress Note: A&P Assessment and Plan (1) Acute and chronic respiratory failure with hypoxia: Code(s): J96.21 - Acute and chronic respiratory failure with hypoxia Status: Acute Assessment and Plan: * Continue Lasix * echo showed: Summary ? 1. Complete two-dimensional, color flow and Doppler transthoracicechocardiogram is performed. ? 2. Normal left ventricular size thickness and systolic function. ? 3. Mildly calcified mitral valve annulus with trivial MR. ? 4. Normal sinus rhythm present during this exam( exam ordered because of AFib). (2) UTI (urinary tract infection): Qualifiers: Hematuria presence: without hematuria Urinary tract infection type: site unspecified Qualified Code(s): N39.0 - Urinary tract infection, site not specified Code(s): N39.0 - Urinary tract infection, site not specified Status: Acute Assessment and Plan: * Klebsiella pneumonia (3) Pneumonia: Qualifiers: Pneumonia type: due to unspecified organism Laterality: unspecified laterality Lung location: unspecified part of lung Qualified Code(s): J18.9 - Pneumonia, unspecified organism Code(s): J18.9 - Pneumonia, unspecified organism Status: Acute Assessment and Plan: * Possible aspiration due to encephalopathy * Will change Zosyn to p.o. Augmentin (4) Bacteremia: Code(s): R78.81 - Bacteremia Status: Acute Assessment and Plan: * Pansensitive Klebsiella pneumonia likely from urinary infection (5) Atrial fibrillation with RVR: Code(s): I48.91 - Unspecified atrial fibrillation Status: Acute Assessment and Plan: * Suspect due to infection, electrolyte abnormalities * Continue amiodarone and metoprolol * Continue to monitor on telemetry (6) Depression with anxiety: Code(s): F41.8 - Other specified anxiety disorders Status: Acute Assessment and Plan: * Clinically stable (7) Chronic GERD: Code(s): K21.9 - Gastro-esophageal reflux disease without esophagitis Status: Acute Assessment and Plan: * Clinically stable (8) New onset a-fib: Code(s): I48.91 - Unspecified atrial fibrillation Status: Acute Assessment and Plan: * No prior history (9) Severe sepsis: Code(s): A41.9 - Sepsis, unspecified organism; R65.20 - Severe sepsis without septic shock Status: Acute Assessment and Plan: * Resolved (10) Thrombocytopenia: Code(s): D69.6 - Thrombocytopenia, unspecified Status: Acute Assessment and Plan: * Likely due to cirrhosis with portal hypertension * Chronic * Monitor counts (11) Cirrhosis of liver: Code(s): K74.60 - Unspecified cirrhosis of liver Status: Acute Assessment and Plan: Patient on p.o. Lasix. Will add oral Aldactone (12) Chronic anemia: Code(s): D64.9 - Anemia, unspecified Status: Acute Assessment and Plan: * Chronic * Monitor CBC Subjective Date/time seen: 01/30/23 11:24 Interval history: Shortness of breath is better Review of Systems Review of Systems: All systems reviewed & are unremarkable except as noted in HPI and below Exam Narrative: GENERAL: Chronically ill-appearing. Mildly tachypneic but otherwise in no acute distress. - HEENT: Moist mucous membranes. Anicter ic. Left-sided scalp depressed due to previous surgical treatment of brain tumor.
--- NOTE | 2023-01-30 11:24 | PM.IMPN ---
Progress Note: A&P Assessment and Plan (1) Acute and chronic respiratory failure with hypoxia: Code(s): J96.21 - Acute and chronic respiratory failure with hypoxia Status: Acute Assessment and Plan: Continue Lasix echo showed: Summary ? 1. Complete two-dimensional, color flow and Doppler transthoracicechocardiogram is performed. ? 2. Normal left ventricular size thickness and systolic function. ? 3. Mildly calcified mitral valve annulus with trivial MR. ? 4. Normal sinus rhythm present during this exam( exam ordered because of AFib). (2) UTI (urinary tract infection): Qualifiers: Hematuria presence: without hematuria Urinary tract infection type: site unspecified Qualified Code(s): N39.0 - Urinary tract infection, site not specified Code(s): N39.0 - Urinary tract infection, site not specified Status: Acute Assessment and Plan: Klebsiella pneumonia (3) Pneumonia: Qualifiers: Pneumonia type: due to unspecified organism Laterality: unspecified laterality Lung location: unspecified part of lung Qualified Code(s): J18.9 - Pneumonia, unspecified organism Code(s): J18.9 - Pneumonia, unspecified organism Status: Acute Assessment and Plan: Possible aspiration due to encephalopathy Will change Zosyn to p.o. Augmentin (4) Bacteremia: Code(s): R78.81 - Bacteremia Status: Acute Assessment and Plan: Pansensitive Klebsiella pneumonia likely from urinary infection (5) Atrial fibrillation with RVR: Code(s): I48.91 - Unspecified atrial fibrillation Status: Acute Assessment and Plan: Suspect due to infection, electrolyte abnormalities Continue amiodarone and metoprolol Continue to monitor on telemetry (6) Depression with anxiety: Code(s): F41.8 - Other specified anxiety disorders Status: Acute Assessment and Plan: Clinically stable (7) Chronic GERD: Code(s): K21.9 - Gastro-esophageal reflux disease without esophagitis Status: Acute Assessment and Plan: Clinically stable (8) New onset a-fib: Code(s): I48.91 - Unspecified atrial fibrillation Status: Acute Assessment and Plan: No prior history (9) Severe sepsis: Code(s): A41.9 - Sepsis, unspecified organism; R65.20 - Severe sepsis without septic shock Status: Acute Assessment and Plan: Resolved (10) Thrombocytopenia: Code(s): D69.6 - Thrombocytopenia, unspecified Status: Acute Assessment and Plan: Likely due to cirrhosis with portal hypertension Chronic Monitor counts (11) Cirrhosis of liver: Code(s): K74.60 - Unspecified cirrhosis of liver Status: Acute Assessment and Plan: Patient on p.o. Lasix. Will add oral Aldactone (12) Chronic anemia: Code(s): D64.9 - Anemia, unspecified Status: Acute Assessment and Plan: Chronic Monitor CBC Subjective Date/time seen: 01/30/23 11:24 Interval history: Shortness of breath is better Review of Systems Review of Systems: All systems reviewed & are unremarkable except as noted in HPI and below Exam Narrative: GENERAL: Chronically ill-appearing. Mildly tachypneic but otherwise in no acute distress. - HEENT: Moist mucous membranes. Anicteric. Left-sided scalp depressed due to previous surgical treatment of brain tumor. -NECK: Mild JVD - LUNGS: Decreased breath sounds bilateral bases with no wheezes or crackles, mildly tachypneic - CARDIOVASCULAR: Irregularly irregular rhythm, tachycardia,. No murmur. - ABDOMEN: Soft, protuberant, non-tender. No palpable masses. - EXTREMITIES: Trace peep tibial edema - NEUROLOGIC: No focal neurological deficits. CN II-XII grossly intact. - PSYCHIATRIC: Alert. Oriented to person, place, year, month but not to date. - SKIN: Warm and dry Objective Data Vital Signs Vital Signs: Vital Signs - 24 hr
--- NOTE | 2023-01-30 12:40 | PCCCNOTE ---
On 01/30/23, the student, [Pretty Zaragoza], provided care and completed [facility] documentation on this patient. I have reviewed the student's documentation and agree with the findings.
--- NOTE | 2023-01-30 21:47 | PC.NURSE ---
pt had a temp. of 101.4. RN communicated knowledge of tylenol lowering the temp. pt refused the tylenol
[2023-01-31] VITALS (19 sets, daily range): BP systolic 105–112; BP diastolic 42–54; PULSE 80–105; RESP 18–28; TEMP 36.5–38.4; O2SAT 91–98
--- NOTE | 2023-01-31 01:52 | PC.NURSE ---
Provider notified of patient refusing care; RN gave multiple attempts of providing education to the patient about her care
[2023-01-31] MEDS: LEVALBUTEROL NEB 1.25 MG/3 ML INHALATION ×4 (02:12→21:07)
[2023-01-31] MEDS: IPRATROPIUM BR 0.02% INH SOLN 0.5 MG/2.5 ML VIAL INHALATION ×4 (02:12→21:07)
[2023-01-31 06:42] LABS: Hematocrit 25.7 % (37.0-47.0); Hemoglobin 7.5 g/dL (12.0-15.0); Immature Platelet Fraction Pct 8.6 % (0.9-11.2); Mean Corpuscular HGB Conc 29.2 g/dl (32-36); Mean Corpuscular Hemoglobin 24.2 pg (26-34); Mean Corpuscular Volume 82.9 fl (80-100); Platelet Count Result 138 k/mm3 (150-375); Red Cell Distribution Width 28.3 % (11.5-14.5); White Blood Count 9.8 K/mm3 (4.5-10.0)
[2023-01-31 06:50] LABS: Ammonia < 9 umol/L (9-30)
[2023-01-31 06:53] LABS: Lactic Acid Reflex 1.9 mmol/L (0.7-2.0)
[2023-01-31 06:54] LABS: Anion Gap 2 mmol/L (8-16); Blood Urea Nitrogen 9 mg/dL (7-17); Calcium 7.6 mg/dL (8.4-10.2); Carbon Dioxide 31 mmol/L (22-30); Chloride 102 mmol/L (98-107); Estimated CRCL calculation 94 ml/min; Estimated Glomerular Filt Rate > 60; Glucose 80 mg/dL (65-110); Magnesium 1.6 mg/dL (1.6-2.3); Potassium 3.6 mmol/L (3.4-5.0); Sodium 135 mmol/L (137-145)
[2023-01-31] MEDS: AMOXICILLIN/CLAVULANATE K 875-125 MG TAB 1 TABLET PO ×2 (09:30→21:00)
--- NOTE | 2023-01-31 10:12 | P.PNIM_ITS ---
Progress Note: A&P Assessment and Plan (1) Acute and chronic respiratory failure with hypoxia: Code(s): J96.21 - Acute and chronic respiratory failure with hypoxia Status: Acute Assessment and Plan: * Continue Lasix * echo showed: Summary ? 1. Complete two-dimensional, color flow and Doppler transthoracicechocardiogram is performed. ? 2. Normal left ventricular size thickness and systolic function. ? 3. Mildly calcified mitral valve annulus with trivial MR. ? 4. Normal sinus rhythm present during this exam( exam ordered because of AFib). (2) Pneumonia: Qualifiers: Pneumonia type: due to unspecified organism Laterality: unspecified laterality Lung location: unspecified part of lung Qualified Code(s): J18.9 - Pneumonia, unspecified organism Code(s): J18.9 - Pneumonia, unspecified organism Status: Acute Assessment and Plan: * Possible aspiration due to encephalopathy * On p.o. Augmentin (3) Bacteremia: Code(s): R78.81 - Bacteremia Status: Acute Assessment and Plan: * Pansensitive Klebsiella pneumonia likely from urinary infection. On Augmentin (4) Atrial fibrillation with RVR: Code(s): I48.91 - Unspecified atrial fibrillation Status: Acute Assessment and Plan: * Resolved * Continue amiodarone and metoprolol * Continue to monitor on telemetry (5) Depression with anxiety: Code(s): F41.8 - Other specified anxiety disorders Status: Acute Assessment and Plan: * Clinically stable (6) Chronic GERD: Code(s): K21.9 - Gastro-esophageal reflux disease without esophagitis Status: Acute Assessment and Plan: * Clinically stable (7) Cirrhosis of liver: Code(s): K74.60 - Unspecified cirrhosis of liver Status: Acute Assessment and Plan: Patient on p.o. Lasix. And aldactone (8) Chronic anemia: Code(s): D64.9 - Anemia, unspecified Status: Acute Assessment and Plan: * Chronic * Monitor CBC * Patient is refusing blood transfusion. Will add oral iron supplementation. Subjective Date/time seen: 01/31/23 10:12 Interval history: Patient had fever last night. Asymptomatic at this time Review of Systems Review of Systems: All systems reviewed & are unremarkable except as noted in HPI and below Exam Narrative: GENERAL: Chronically ill-appearing. Mildly tachypneic but otherwise in no acute distress. - HEENT: Moist mucous membranes. Anicter ic. Left-sided scalp depressed due to previous surgical treatment of brain tumor. -NECK: Mild JVD - LUNGS: Decreased breath sounds bilate ral bases with no wheezes or crackles, mildly tachypneic - CARDIOVASCULAR: Irregularly irregular rhythm, tachycardia,. No murmur. - ABDOMEN: Soft, protuberant, non-tender . No palpable masses. - EXTREMITIES: Trace peep tibial edema - NEUROLOGIC: No focal neurological defi cits. CN II-XII grossly intact. - PSYCHIATRIC: Alert. Oriented to pers on, place, year, month but not to date. - SKIN: Warm and dry Objective Data Vital Signs Vital Signs: Vital Signs
--- NOTE | 2023-01-31 10:12 | PM.IMPN ---
Progress Note: A&P Assessment and Plan (1) Acute and chronic respiratory failure with hypoxia: Code(s): J96.21 - Acute and chronic respiratory failure with hypoxia Status: Acute Assessment and Plan: Continue Lasix echo showed: Summary ? 1. Complete two-dimensional, color flow and Doppler transthoracicechocardiogram is performed. ? 2. Normal left ventricular size thickness and systolic function. ? 3. Mildly calcified mitral valve annulus with trivial MR. ? 4. Normal sinus rhythm present during this exam( exam ordered because of AFib). (2) Pneumonia: Qualifiers: Pneumonia type: due to unspecified organism Laterality: unspecified laterality Lung location: unspecified part of lung Qualified Code(s): J18.9 - Pneumonia, unspecified organism Code(s): J18.9 - Pneumonia, unspecified organism Status: Acute Assessment and Plan: Possible aspiration due to encephalopathy On p.o. Augmentin (3) Bacteremia: Code(s): R78.81 - Bacteremia Status: Acute Assessment and Plan: Pansensitive Klebsiella pneumonia likely from urinary infection. On Augmentin (4) Atrial fibrillation with RVR: Code(s): I48.91 - Unspecified atrial fibrillation Status: Acute Assessment and Plan: Resolved Continue amiodarone and metoprolol Continue to monitor on telemetry (5) Depression with anxiety: Code(s): F41.8 - Other specified anxiety disorders Status: Acute Assessment and Plan: Clinically stable (6) Chronic GERD: Code(s): K21.9 - Gastro-esophageal reflux disease without esophagitis Status: Acute Assessment and Plan: Clinically stable (7) Cirrhosis of liver: Code(s): K74.60 - Unspecified cirrhosis of liver Status: Acute Assessment and Plan: Patient on p.o. Lasix. And aldactone (8) Chronic anemia: Code(s): D64.9 - Anemia, unspecified Status: Acute Assessment and Plan: Chronic Monitor CBC Patient is refusing blood transfusion. Will add oral iron supplementation. Subjective Date/time seen: 01/31/23 10:12 Interval history: Patient had fever last night. Asymptomatic at this time Review of Systems Review of Systems: All systems reviewed & are unremarkable except as noted in HPI and below Exam Narrative: GENERAL: Chronically ill-appearing. Mildly tachypneic but otherwise in no acute distress. - HEENT: Moist mucous membranes. Anicteric. Left-sided scalp depressed due to previous surgical treatment of brain tumor. -NECK: Mild JVD - LUNGS: Decreased breath sounds bilateral bases with no wheezes or crackles, mildly tachypneic - CARDIOVASCULAR: Irregularly irregular rhythm, tachycardia,. No murmur. - ABDOMEN: Soft, protuberant, non-tender. No palpable masses. - EXTREMITIES: Trace peep tibial edema - NEUROLOGIC: No focal neurological deficits. CN II-XII grossly intact. - PSYCHIATRIC: Alert. Oriented to person, place, year, month but not to date. - SKIN: Warm and dry Objective Data Vital Signs Vital Signs: Vital Signs - 24 hr 01/30/23 13:55 01/30/23 14:32 01/30/23 14:42 Temperature 97.0 F L Pulse Rate 81 82 84 Respiratory Rate 18 18 18 Blood Pressure 98/51 L Pulse Oximetry 98 Oxygen Delivery 01/30/23 20:06 01/30/23 20:18 01/30/23 20:19 Temperature Pulse Rate 90 90 85 Respiratory Rate 22 H 22 H Blood Pressure Pulse Oximetry 93 Oxygen Delivery Room Air 01/30/23 20:34 01/30/23 21:41 01/30/23 23:41 Temperature 101.4 F H Pulse Rate 77 77 92 Respiratory Rate 22 H Blood Pressure 97/47 L 108/52 L Pulse Oximetry 100 Oxygen Delivery 01/31/23 01:22 01/31/23 02:12 01/31/23 02:22 Temperature Pulse Rate 88 86 82 Respiratory Rate 20 20 Blood Pressure 105/50 L Pulse Oximetry Oxygen Delivery 01/31/23 06:00 01/31/23 07:25 01/31/23 07:25 Temperature 100.2 F H Pulse Rate 85 82 Respiratory Rat
--- NOTE | 2023-01-31 10:52 | PCPTNOTE ---
Patient refused treatment at this time.
[2023-01-31] MEDS: oxyCODONE HCL (*CRX) 5 MG TAB IR PO ×2 (12:48→21:21)
[2023-01-31] MEDS: levETIRAcetam 500 MG TABLET PO ×2 (12:49→21:01)
[2023-01-31] MEDS: FUROSEMIDE 40 MG TABLET PO (12:49)
[2023-01-31] MEDS: SPIRONOLACTONE 25 MG TABLET PO (12:50)
[2023-01-31] MEDS: METOPROLOL TARTRATE 12.5 MG TABLET PO ×2 (12:50→21:01)
[2023-01-31] MEDS: AMIODARONE HCL 100 MG TABLET PO (12:51)
[2023-01-31] MEDS: FERROUS SULFATE 325 MG TABLET DR PO (12:51)
[2023-01-31] MEDS: AMIODARONE HCL 50 MG TABLET PO (12:52)
[2023-01-31] MEDS: ACETAMINOPHEN 325 MG TABLET 650 MG PO (13:02)
--- NOTE | 2023-01-31 15:20 | PCPTNOTE ---
Patient refused treatment this afternoon stating she was waiting on a phone call. I asked patient 3x if she would like assist repositioning in bed to improve her position and comfort and she declined stating I can do it myself but I am comfortable where I am at.
--- NOTE | 2023-01-31 17:52 | PC.NURSE ---
Pt was refusing medication at the beginning of the shift. Pt has reported pain that was treated with [place]. Pt refused placement of a new IV so provider ordered iron instead of giving a unit of blood. Provider aware of pt refusing medication. Pt was educated on medication actions. Pt decided to take antibiotic. Pt asked for pain medication. Pt was asked again about taking morning meds. Pt agreed, but refused lactulose. Pt had a bowel movement today. Pt walked self to the bathroom, PCT informed nurse that pt was in bathroom when she went into the room. Pt bed alarm had been set this am by nurse. Pt had fever again today and was treated with tylenol. Will continue to monitor pt.
[2023-01-31] MEDS: ALPRAZolam (*CRX) 0.5 MG TABLET PO (22:55)
[2023-02-01] VITALS (11 sets, daily range): BP systolic 102–106; BP diastolic 40–56; PULSE 78–91; RESP 18–22; TEMP 37.4–38.2; O2SAT 91–95
[2023-02-01] MEDS: LACTULOSE 20 GM/30 ML UDC PO (00:11)
[2023-02-01] MEDS: LEVALBUTEROL NEB 1.25 MG/3 ML INHALATION ×3 (02:06→20:10)
[2023-02-01] MEDS: IPRATROPIUM BR 0.02% INH SOLN 0.5 MG/2.5 ML VIAL INHALATION ×3 (02:06→20:10)
--- NOTE | 2023-02-01 06:46 | PC.NURSE ---
pt with a temp of 100.7; refused tylenol. pt also refused her 0600 lactulose
[2023-02-01] MEDS: FUROSEMIDE 40 MG TABLET PO (08:57)
[2023-02-01] MEDS: AMOXICILLIN/CLAVULANATE K 875-125 MG TAB 1 TABLET PO ×2 (08:57→21:00)
[2023-02-01] MEDS: VENLAFAXINE HCL XR 75 MG CAP.ER.24H PO (08:57)
[2023-02-01] MEDS: AZITHROMYCIN 250 MG TABLET 500 MG PO (08:57)
[2023-02-01] MEDS: oxyCODONE HCL (*CRX) 5 MG TAB IR PO ×2 (08:58→21:08)
[2023-02-01] MEDS: levETIRAcetam 500 MG TABLET PO ×2 (08:58→21:01)
[2023-02-01] MEDS: SPIRONOLACTONE 25 MG TABLET PO (08:58)
[2023-02-01] MEDS: FERROUS SULFATE 325 MG TABLET DR PO (08:58)
[2023-02-01] MEDS: AMIODARONE HCL 50 MG TABLET PO (08:59)
[2023-02-01] MEDS: METOPROLOL TARTRATE 12.5 MG TABLET PO ×2 (09:00→21:02)
[2023-02-01] MEDS: ALPRAZolam (*CRX) 0.5 MG TABLET PO (09:06)
[2023-02-01 10:05] LABS: Basophils Absolute Auto 0.1 K/mm3 (0.0-0.1); Basophils Percent Auto 0.7 % (0.2-1.2); Eosinophils Absolute Auto 0.1 K/mm3 (0-0.3); Eosinophils Percent Auto 1.3 % (0-4.4); Hematocrit 29.3 % (37.0-47.0); Hemoglobin 8.4 g/dL (12.0-15.0); Immature Granulocyte Absolute 0.05 K/mm3 (0.00-0.031); Immature Granulocyte Percent A 0.6 % (0-0.5); Lymphocytes Absolute Auto 0.97 K/mm3 (0.9-3.2); Lymphocytes Percent Auto 11.3 % (18.3-44.2); Mean Corpuscular HGB Conc 28.7 g/dl (32-36); Mean Corpuscular Hemoglobin 24.1 pg (26-34); Mean Corpuscular Volume 84.2 fl (80-100); Monocytes Absolute Auto 0.5 K/mm3 (0.1-0.6); Monocytes Percent Auto 5.4 % (2.6-8.5); Neutrophils Absolute Auto 6.9 K/mm3 (1.3-6.7); Neutrophils Percent Auto 80.7 % (45.5-73.1); Platelet Count Result 111 k/mm3 (150-375); Red Blood Count 3.48 M/mm3 (4.2-5.4); Red Cell Distribution Width 29.5 % (11.5-14.5); White Blood Count 8.6 K/mm3 (4.5-10.0)
[2023-02-01] MEDS: AMIODARONE HCL 100 MG TABLET PO (10:15)
[2023-02-01 11:01] LABS: Procalcitonin 0.3 ng/mL
--- NOTE | 2023-02-01 11:11 | P.PNIM_ITS ---
Progress Note: A&P Assessment and Plan (1) Acute and chronic respiratory failure with hypoxia: Code(s): J96.21 - Acute and chronic respiratory failure with hypoxia Status: Acute Assessment and Plan: * Continue Lasix * echo showed: Summary ? 1. Complete two-dimensional, color flow and Doppler transthoracicechocardiogram is performed. ? 2. Normal left ventricular size thickness and systolic function. ? 3. Mildly calcified mitral valve annulus with trivial MR. ? 4. Normal sinus rhythm present during this exam( exam ordered because of AFib). (2) Bacteremia: Code(s): R78.81 - Bacteremia Status: Acute Assessment and Plan: * Patient had high-grade fever yesterday and low-grade fever this morning. Will repeat chest x-ray and urinalysis and urine culture and blood culture. pansensitive Klebsiella pneumonia likely from urinary infection. On ntin. (3) Pneumonia: Qualifiers: Pneumonia type: due to unspecified organism Laterality: unspecified laterality Lung location: unspecified part of lung Qualified Code(s): J18.9 - Pneumonia, unspecified organism Code(s): J18.9 - Pneumonia, unspecified organism Status: Acute Assessment and Plan: * Possible aspiration due to encephalopathy * On p.o. Augmentin. Will add azithromycin due to ongoing fever (4) Atrial fibrillation with RVR: Code(s): I48.91 - Unspecified atrial fibrillation Status: Acute Assessment and Plan: * Resolved * Continue amiodarone and metoprolol * Continue to monitor on telemetry (5) Depression with anxiety: Code(s): F41.8 - Other specified anxiety disorders Status: Acute Assessment and Plan: * Clinically stable (6) Chronic GERD: Code(s): K21.9 - Gastro-esophageal reflux disease without esophagitis Status: Acute Assessment and Plan: * Clinically stable (7) Cirrhosis of liver: Code(s): K74.60 - Unspecified cirrhosis of liver Status: Acute Assessment and Plan: Patient on p.o. Lasix. And aldactone (8) Chronic anemia: Code(s): D64.9 - Anemia, unspecified Status: Acute Assessment and Plan: * Chronic * Monitor CBC * Patient is refusing blood transfusion. Will add oral iron supplementation. Subjective Date/time seen: 02/01/23 11:11 Interval history: Currently asymptomatic. Little tachypnea Review of Systems Review of Systems: All systems reviewed & are unremarkable except as noted in HPI and below Exam Narrative: GENERAL: Chronically ill-appearing. Mildly tachypneic but otherwise in no acute distress. - HEENT: Moist mucous membranes. Anicter ic. Left-sided scalp depressed due to previous surgical treatment of brain tumor. -NECK: Mild JVD - LUNGS: Decreased breath sounds bilate ral bases with no wheezes or crackles, mildly tachypneic - CARDIOVASCULAR: Irregularly irregular rhythm, tachycardia,. No murmur. - ABDOMEN: Soft, protuberant, non-tender . No palpable masses. - EXTREMITIES: Trace peep tibial edema - NEUROLOGIC: No focal neurological defi cits. CN II-XII grossly intact. - PSYCHIATRIC: Alert. Oriented to pers on, place, year, month but not
--- NOTE | 2023-02-01 11:11 | PM.IMPN ---
Progress Note: A&P Assessment and Plan (1) Acute and chronic respiratory failure with hypoxia: Code(s): J96.21 - Acute and chronic respiratory failure with hypoxia Status: Acute Assessment and Plan: Continue Lasix echo showed: Summary ? 1. Complete two-dimensional, color flow and Doppler transthoracicechocardiogram is performed. ? 2. Normal left ventricular size thickness and systolic function. ? 3. Mildly calcified mitral valve annulus with trivial MR. ? 4. Normal sinus rhythm present during this exam( exam ordered because of AFib). (2) Bacteremia: Code(s): R78.81 - Bacteremia Status: Acute Assessment and Plan: Patient had high-grade fever yesterday and low-grade fever this morning. Will repeat chest x-ray and urinalysis and urine culture and blood culture. pansensitive Klebsiella pneumonia likely from urinary infection. On Augmentin. (3) Pneumonia: Qualifiers: Pneumonia type: due to unspecified organism Laterality: unspecified laterality Lung location: unspecified part of lung Qualified Code(s): J18.9 - Pneumonia, unspecified organism Code(s): J18.9 - Pneumonia, unspecified organism Status: Acute Assessment and Plan: Possible aspiration due to encephalopathy On p.o. Augmentin. Will add azithromycin due to ongoing fever (4) Atrial fibrillation with RVR: Code(s): I48.91 - Unspecified atrial fibrillation Status: Acute Assessment and Plan: Resolved Continue amiodarone and metoprolol Continue to monitor on telemetry (5) Depression with anxiety: Code(s): F41.8 - Other specified anxiety disorders Status: Acute Assessment and Plan: Clinically stable (6) Chronic GERD: Code(s): K21.9 - Gastro-esophageal reflux disease without esophagitis Status: Acute Assessment and Plan: Clinically stable (7) Cirrhosis of liver: Code(s): K74.60 - Unspecified cirrhosis of liver Status: Acute Assessment and Plan: Patient on p.o. Lasix. And aldactone (8) Chronic anemia: Code(s): D64.9 - Anemia, unspecified Status: Acute Assessment and Plan: Chronic Monitor CBC Patient is refusing blood transfusion. Will add oral iron supplementation. Subjective Date/time seen: 02/01/23 11:11 Interval history: Currently asymptomatic. Little tachypnea Review of Systems Review of Systems: All systems reviewed & are unremarkable except as noted in HPI and below Exam Narrative: GENERAL: Chronically ill-appearing. Mildly tachypneic but otherwise in no acute distress. - HEENT: Moist mucous membranes. Anicteric. Left-sided scalp depressed due to previous surgical treatment of brain tumor. -NECK: Mild JVD - LUNGS: Decreased breath sounds bilateral bases with no wheezes or crackles, mildly tachypneic - CARDIOVASCULAR: Irregularly irregular rhythm, tachycardia,. No murmur. - ABDOMEN: Soft, protuberant, non-tender. No palpable masses. - EXTREMITIES: Trace peep tibial edema - NEUROLOGIC: No focal neurological deficits. CN II-XII grossly intact. - PSYCHIATRIC: Alert. Oriented to person, place, year, month but not to date. - SKIN: Warm and dry Objective Data Vital Signs Vital Signs: Vital Signs - 24 hr 01/31/23 12:50 01/31/23 12:51 01/31/23 12:52 Temperature Pulse Rate 98 98 98 Respiratory Rate Blood Pressure Pulse Oximetry Oxygen Delivery 01/31/23 13:02 01/31/23 13:07 01/31/23 13:55 Temperature 101.1 F H 101.1 F H Pulse Rate 105 H 88 Respiratory Rate 28 H 22 H Blood Pressure 112/48 L Pulse Oximetry 93 Oxygen Delivery 01/31/23 14:12 01/31/23 17:30 01/31/23 21:01 Temperature 98.5 F Pulse Rate 80 85 Respiratory Rate 20 Blood Pressure Pulse Oximetry Oxygen Delivery 01/31/23 21:07 01/31/23 21:14 01/31/23 21:56 Temperature 97.7 F Pulse Rate 85 86 85 Respiratory Rate 20 20 20 Blood Pressure
[2023-02-01 11:14] LABS: Anisocytosis 1+ (NORMAL); Hypochromasia 1+ (NORMAL); Microcytosis 1+ (NORMAL); Platelet Clumps Present; Platelet Estimate Decreased (Adequate)
[2023-02-01 11:15] LABS: Schistocytes Rare (NORMAL)
--- NOTE | 2023-02-01 11:17 | PCCCNOTE ---
On 02/01/23, the student, [Pretty Zaragoza ], provided care and completed [facility] documentation on this patient. I have reviewed the student's documentation and agree with the findings.
--- NOTE | 2023-02-01 11:35 | PCPTNOTE ---
Pt. refused therapy this date stating she is not feeling well. Educated patient on the importance on participating on therapy to improve strength and mobility. Pt. continued to refuse.
--- NOTE | 2023-02-01 11:39 | PCPTNOTE ---
On 02/01/23, the student, GUNJAN Taylor, provided care and completed [facility] documentation on this patient. I have reviewed the student's documentation and agree with the findings.
--- NOTE | 2023-02-01 13:05 | PM.DS ---
DS: Admitting Diagnosis Discharge Date 02/01/2023 Admitting Diagnosis Altered mental status DS: Discharge Diagnosis Discharge Diagnosis (1) Altered mental status: Qualifiers: Altered mental status type: disorientation Qualified Code(s): R41.0 - Disorientation, unspecified Code(s): R41.82 - Altered mental status, unspecified Status: Acute (2) Acute and chronic respiratory failure with hypoxia: Code(s): J96.21 - Acute and chronic respiratory failure with hypoxia Status: Acute (3) Severe sepsis: Code(s): A41.9 - Sepsis, unspecified organism; R65.20 - Severe sepsis without septic shock Status: Acute DS: Summary Hospital Course Hospital Course: This is a 57-year-old female patient who resides in a fpc.? The patient was brought to the emergency room for altered mental status.? The patient was minimally responsive when EMS arrived to the fpc.? Patient was found to be hypoglycemic in the 40s and 50s and she was given IM glucagon her mental status did improve somewhat.? In the ED her white count was found to be 18.8.? H and H is 10.3 and 36.2.? The patient does have bandemia with band neutrophils 32.? BUN is 36 creatinine 1.5.? Her lactic was 6.0 and now 4.3.? Total bilirubin 2.5 AST 422 ALT is 87.? Troponin 0.068, 0.055, and 0.053 respectively.? BNP 6970.? She was found to be positive for UTI.? Influenza A/B and COVID are all negative.? Head CT was read as no acute intracranial pathology.? Chest x-ray was read as: Small lung volumes with diffuse interstitial pattern, consistent with mild pulmonary edema versus atypical pneumonia versus chronic interstitial lung disease.? The patient was given Zosyn, vancomycin, azithromycin, and 3 L of IV fluids per sepsis protocol 30 milligrams/kilogram.? Her platelet count is 50.? Potassium 3.2.? Chloride is 112.? Patient was admitted. IV antibiotics will continue. she spiked a fever to 40? centigrade.? CT scan of the chest abdomen and pelvis was performed.? It appeared she had an obstructing renal stone and she was taken to surgery by Dr. Estrada.? Although no obstructing stone was noted, fragments of a passed stone were noted in the bladder.? A ureteral stent was placed.? Also on the CT scan, it was noted that there was dilated loops of bowel suggestive of ileus or small-bowel obstruction.? Interestingly, there were no signs of cirrhosis in the liver and her spleen was not enlarged.?Due to her deteriorating condition and the bowel gas pattern on CT, a nasogastric tube was placed. When she was stable NGT was removed and patient was started on diet Blood culture? grows Proteus mirabilis. Chest x-ray shows interstitial patchy infiltrate both lungs, suggesting atypical pneumonia, possible aspiration pneumonia. Patient on rocephin IV and oral doxycycline which was later changed to oral Augmentin She was also found to have new onset AFib and RVR and Cardiology was consulted and she was started on amiodarone Given her history of seizure, she was initially started on heparin drip which was changed to p.o. Keppra later on. For her liver cirrhosis Lasix and Aldactone were continued. Patient continued to have low-grade fever so a chest x-ray and UA and blood cultures were obtained this morning but patient is refusing and is leaving AMA. Time Spent with Patient Time attestation: Total time spent providing and/or coordinating discharge services: DS: Data Data Completed and Pending Labs on day of discharge: Labs from last 24 hours 02/01/23 09:46 WBC 8.6 RBC 3.48 L Hgb 8.4 L Hct 29.3 L MCV 84.2 MCH 24.1 L MCHC 28.7 L RDW 29.5 H Plt Count 111 L MPV TNP Immature Gran % (Auto) 0.6 H Neut % (Auto) 80.7 H Lymph % (Auto) 11.3 L Butler % (Auto) 5.4 Eos % (Auto) 1.3 Baso % (Auto) 0.7 Lymph # (Auto) 0.97 [place] # (Auto) 0.5 Eos # (Auto) 0.1 Baso # (Auto) 0.1 Abs Immat Gran (auto) 0.05 H Absolute Neuts (auto) 6.9 H Absolute Nuclea
--- NOTE | 2023-02-01 13:55 | PC.NURSE ---
Addendum entered by Mary Jo Clark RN 02/01/23 18:55: Pt continues to refuse treatment. Pt was cleaned up after large bowel movement. Pt refused afternoon vitals. Pt has been monitored for any changes in status to the best of our ability with treatment and observation that pt would allow. Original Note: Pt took morning medication, but has refused lactulose. Pt originally refusing blood work and blood cultures. Pt agreed and cultures were cancelled. Pt refusing chest x ray and UA. Pt requesting to leave AMA. Care coordination contacted to discuss pt options. Pt continues to request to leave. Pt educated on why she should stay. Pt insistent on leaving. Pt reports having belongings when she arrived to the ED. Pt describes these belongings as 3 rings, 2 with pink stones, 1 with a sapphire, 1 cross necklace, 1 pair of pajama pants, either friends or camo, and a blue or camo t-shirt. Care coordination went to speak with pt about staying. Pt reported items to them as well. Care coordination is investigating the lost items. Will continue to monitor pt.
[2023-02-02] VITALS (12 sets, daily range): BP systolic 105–117; BP diastolic 46–64; PULSE 82–97; RESP 14–22; TEMP 37–37.5; O2SAT 92–96
--- NOTE | 2023-02-02 04:49 | PCRCNOTE ---
Pt refused 0200 updraft treatment due to wanting sleep. Treatment to resume at 0800.
--- NOTE | 2023-02-02 06:43 | PC.NURSE ---
pt refused her dose of lactulose at 0000 and 0600.
[2023-02-02] MEDS: VENLAFAXINE HCL XR 75 MG CAP.ER.24H PO (08:16)
[2023-02-02] MEDS: levETIRAcetam 500 MG TABLET PO ×2 (08:16→20:20)
[2023-02-02] MEDS: AMOXICILLIN/CLAVULANATE K 875-125 MG TAB 1 TABLET PO ×2 (08:17→20:20)
[2023-02-02] MEDS: FERROUS SULFATE 325 MG TABLET DR PO (08:17)
[2023-02-02] MEDS: AMIODARONE HCL 100 MG TABLET PO (08:17)
[2023-02-02] MEDS: AZITHROMYCIN 250 MG TABLET 500 MG PO (08:17)
[2023-02-02] MEDS: METOPROLOL TARTRATE 12.5 MG TABLET PO ×2 (08:18→20:20)
[2023-02-02] MEDS: FUROSEMIDE 40 MG TABLET PO (08:18)
[2023-02-02] MEDS: SPIRONOLACTONE 25 MG TABLET PO (08:18)
[2023-02-02] MEDS: AMIODARONE HCL 50 MG TABLET PO (08:20)
[2023-02-02 08:22] LABS: Appearance Urine Clear (Clear); Bacteria Urine None Seen /hpf; Bilirubin Urine Negative (Negative); Blood Urine Negative (Negative); Color Urine Yellow (Yellow); Glucose Urine UA Negative (Negative); Ketones Urine Negative (Negative); Leukocyte Esterase Ur 3+ LEU/UL (NEGATIVE); Need Manual Microscopic Reviewed; Nitrate Urine Negative (Negative); Non Pathogenic Casts 0-2; Protein Urine Trace mg/dL (Negative); Specific Grav Ur 1.011 (1.001-1.035); Squamous Epithelial Cell Urine None seen /hpf (Few); Urobilinogen Urine 0.2 mg/dL (<2.0); WBC Urine 51-100 /hpf (0-3)
[2023-02-02] MEDS: oxyCODONE HCL (*CRX) 5 MG TAB IR PO ×2 (08:25→20:19)
[2023-02-02] MEDS: ALPRAZolam (*CRX) 0.5 MG TABLET PO ×2 (08:25→20:19)
[2023-02-02 08:35] LABS: Add Urine Microscopic? YES
--- NOTE | 2023-02-02 09:55 | PCPTNOTE ---
Patient refused treatment this session. Patient did not give reason why.
[2023-02-02] MEDS: LEVALBUTEROL NEB 1.25 MG/3 ML INHALATION ×3 (10:05→19:58)
[2023-02-02] MEDS: IPRATROPIUM BR 0.02% INH SOLN 0.5 MG/2.5 ML VIAL INHALATION ×3 (10:05→19:58)
--- NOTE | 2023-02-02 10:41 | PM.IMPN ---
Progress Note: A&P Assessment and Plan (1) Altered mental status: Qualifiers: Altered mental status type: disorientation Qualified Code(s): R41.0 - Disorientation, unspecified Code(s): R41.82 - Altered mental status, unspecified Status: Acute (2) Acute and chronic respiratory failure with hypoxia: Code(s): J96.21 - Acute and chronic respiratory failure with hypoxia Status: Acute Assessment and Plan: Continue Lasix echo showed: Summary ? 1. Complete two-dimensional, color flow and Doppler transthoracicechocardiogram is performed. ? 2. Normal left ventricular size thickness and systolic function. ? 3. Mildly calcified mitral valve annulus with trivial MR. ? 4. Normal sinus rhythm present during this exam( exam ordered because of AFib). (3) Severe sepsis: Code(s): A41.9 - Sepsis, unspecified organism; R65.20 - Severe sepsis without septic shock Status: Acute Plan (1) Acute and chronic respiratory failure with hypoxia: ?Code(s): J96.21 - Acute and chronic respiratory failure with hypoxia ?Status:?Acute ?Assessment and Plan: Continue Lasix ?echo showed:?Summary? 1. Complete two-dimensional, color flow and Doppler transthoracicechocardiogram is performed. ? 2. Normal left ventricular size thickness and systolic function. ? 3. Mildly calcified mitral valve annulus with trivial MR. ? 4. Normal sinus rhythm present during this exam( exam ordered because of AFib). (2) Bacteremia: ?Code(s): R78.81 - Bacteremia ?Status:?Acute ?Assessment and Plan: Patient had high-grade fever yesterday and low-grade fever this morning.? Will repeat chest x-ray and urinalysis and urine culture and blood culture. pansensitive Klebsiella pneumonia likely from urinary infection.? On Augmentin.?(3) Pneumonia: ?Qualifiers: ?Pneumonia type:?due to unspecified organism??Laterality:?unspecified laterality??Lung location:?unspecified part of lung? Qualified Code(s):?J18.9 - Pneumonia, unspecified organism ?Code(s): J18.9 - Pneumonia, unspecified organism ?Status:?Acute ?Assessment and Plan: Possible aspiration due to encephalopathy On p.o. Augmentin.? Will add azithromycin due to ongoing fever(4) Atrial fibrillation with RVR: ?Code(s): I48.91 - Unspecified atrial fibrillation ?Status:?Acute ?Assessment and Plan: Resolved Continue amiodarone and metoprolol Continue to monitor on telemetry(5) Depression with anxiety: ?Code(s): F41.8 - Other specified anxiety disorders ?Status:?Acute ?Assessment and Plan: Clinically stable(6) Chronic GERD: ?Code(s): K21.9 - Gastro-esophageal reflux disease without esophagitis ?Status:?Acute ?Assessment and Plan: Clinically stable(7) Cirrhosis of liver: ?Code(s): K74.60 - Unspecified cirrhosis of liver ?Status:?Acute ?Assessment and Plan: Patient on p.o. Lasix.? And aldactone (8) Chronic anemia: ?Code(s): D64.9 - Anemia, unspecified ?Status:?Acute ?Assessment and Plan: Chronic Monitor CBC Patient is refusing blood transfusion.? Will add oral iron supplementation. Subjective Date/time seen: 02/02/23 10:41 Interval history: Currently asymptomatic. no fever today blood culture January 31 no growth so far, patient is alert oriented x3 Exam Narrative: GENERAL: Chronically ill-appearing. no acute distress. - HEENT: Moist mucous membranes. Anicteric. Left-sided scalp depressed due to previous surgical treatment of brain tumor. -NECK: Mild JVD - LUNGS: Decreased breath sounds bilateral bases with no wheezes or crackles, mildly tachypneic - CARDIOVASCULAR: Irregularly irregular rhythm, tachycardia,. No murmur. - ABDOMEN: Soft, protuberant, non-tender. No palpable masses. - EXTREMITIES: Trace peep tibial edema - NEUROLOGIC: No focal neurological deficits. CN II-XII grossly intact. - PSYCHIATRIC: Alert. Oriented to person,
--- NOTE | 2023-02-02 14:25 | PCPTNOTE ---
Patient refused treatment this session due to patient wanting to rest at this time. Educated patient on the importance of therapy and that this will be her third day of refusing PT. Patient reported she feels she does not need PT and that she did enough therapy at another hospital.
--- NOTE | 2023-02-02 14:55 | PCOTNOTE ---
Attempted again this afternoon. Patient refused to participate and verbalized she will be leaving tomorrow and will do therapy at home. Patient verbalized she doesn't need any help, shes fine.
--- NOTE | 2023-02-02 16:40 | PC.NURSE ---
This nurse called Dr. Camejo about pt refusing lab draws. This nurse was told by the that it is fine.
[2023-02-03] MEDS: IPRATROPIUM BR 0.02% INH SOLN 0.5 MG/2.5 ML VIAL INHALATION ×2 (00:51→09:51)
[2023-02-03] MEDS: LEVALBUTEROL NEB 1.25 MG/3 ML INHALATION ×2 (00:52→09:51)
[2023-02-03 00:55] VITALS: PULSE 87; RESP 18
[2023-02-03 06:00] VITALS: BP 115/65; PULSE 86; RESP 14; TEMP 37.1; O2SAT 96
[2023-02-03 07:25] LABS: Hematocrit 25.9 % (37.0-47.0); Hemoglobin 7.7 g/dL (12.0-15.0); Immature Platelet Fraction Pct 4.8 % (0.9-11.2); Mean Corpuscular HGB Conc 29.7 g/dl (32-36); Mean Corpuscular Hemoglobin 24.8 pg (26-34); Mean Corpuscular Volume 83.5 fl (80-100); Platelet Count Result 155 k/mm3 (150-375); Red Cell Distribution Width 29.2 % (11.5-14.5); White Blood Count 6.9 K/mm3 (4.5-10.0)
[2023-02-03 07:48] LABS: Anion Gap 6 mmol/L (8-16); Blood Urea Nitrogen 7 mg/dL (7-17); Calcium 7.4 mg/dL (8.4-10.2); Carbon Dioxide 26 mmol/L (22-30); Chloride 103 mmol/L (98-107); Estimated CRCL calculation 93 ml/min; Estimated Glomerular Filt Rate > 60; Glucose 75 mg/dL (65-110); Potassium 3.3 mmol/L (3.4-5.0); Sodium 135 mmol/L (137-145)
--- NOTE | 2023-02-03 09:11 | PCPTNOTE ---
Spoke with hospitalist regarding pt refusal for the past 3 days. Hospitalist DARIAN DC of PT orders at this time.
[2023-02-03 09:23] VITALS: PULSE 83
[2023-02-03] MEDS: AMIODARONE HCL 100 MG TABLET PO (09:23)
[2023-02-03] MEDS: FERROUS SULFATE 325 MG TABLET DR PO (09:23)
[2023-02-03] MEDS: METOPROLOL TARTRATE 12.5 MG TABLET PO (09:23)
[2023-02-03] MEDS: AMIODARONE HCL 50 MG TABLET PO (09:23)
[2023-02-03] MEDS: FUROSEMIDE 40 MG TABLET PO (09:24)
[2023-02-03] MEDS: VENLAFAXINE HCL XR 75 MG CAP.ER.24H PO (09:24)
[2023-02-03] MEDS: AZITHROMYCIN 250 MG TABLET 500 MG PO (09:24)
[2023-02-03] MEDS: SPIRONOLACTONE 25 MG TABLET PO (09:24)
[2023-02-03] MEDS: levETIRAcetam 500 MG TABLET PO (09:24)
[2023-02-03] MEDS: AMOXICILLIN/CLAVULANATE K 875-125 MG TAB 1 TABLET PO (09:24)
[2023-02-03] MEDS: ALPRAZolam (*CRX) 0.5 MG TABLET PO (09:33)
[2023-02-03] MEDS: oxyCODONE HCL (*CRX) 5 MG TAB IR PO (09:33)
[2023-02-03 09:45] VITALS: PULSE 80; RESP 18
--- NOTE | 2023-02-03 09:47 | PCNFU ---
Nutrition Follow-Up Complete: Suboptimal po intake related to appetite as evidenced by varied intake PO intake 75% of meals or greater - Meeting goal more consistently Goal: Pt current nutrition is Regular diet. Intakes 50-100%. Ensure Compact BID with several 100% intakes recorded. Nutrition recommendation: COntinue with current care plan and monitoring. Agree with orders Last recorded weight is 72 kg. Bowel Motility: Last BM 02/01/23 Labs Reviewed: Hgb 7.7, Hct 25.9, Na 135, K+ 3.3, Cre 0.5 Meds Noted: Lactulose, Keppra, Spironolactone Skin: WNL Additional Notes: Intakes are improved, now more consistent. Agree with current orders. Monitor intake, wt, labs. Follow up in 7 days.
[2023-02-03 10:01] VITALS: PULSE 83; RESP 16
--- NOTE | 2023-02-03 10:23 | PM.DS ---
DS: Admitting Diagnosis Discharge Date Today Admitting Diagnosis Altered mental status Acute on chronic respiratory failure with hypoxemia Sepsis DS: Discharge Diagnosis Discharge Diagnosis (1) Altered mental status: Qualifiers: Altered mental status type: disorientation Qualified Code(s): R41.0 - Disorientation, unspecified Code(s): R41.82 - Altered mental status, unspecified Status: Acute (2) Acute and chronic respiratory failure with hypoxia: Code(s): J96.21 - Acute and chronic respiratory failure with hypoxia Status: Acute Assessment and Plan: Continue Lasix echo showed: Summary ? 1. Complete two-dimensional, color flow and Doppler transthoracicechocardiogram is performed. ? 2. Normal left ventricular size thickness and systolic function. ? 3. Mildly calcified mitral valve annulus with trivial MR. ? 4. Normal sinus rhythm present during this exam( exam ordered because of AFib). (3) Severe sepsis: Code(s): A41.9 - Sepsis, unspecified organism; R65.20 - Severe sepsis without septic shock Status: Acute Plan (1) Acute and chronic respiratory failure with hypoxia: ?Code(s): J96.21 - Acute and chronic respiratory failure with hypoxia ?Status:?Acute ?Assessment and Plan: Continue Lasix ?echo showed:?Summary? 1. Complete two-dimensional, color flow and Doppler transthoracicechocardiogram is performed. ? 2. Normal left ventricular size thickness and systolic function. ? 3. Mildly calcified mitral valve annulus with trivial MR. ? 4. Normal sinus rhythm present during this exam( exam ordered because of AFib). (2) Bacteremia: ?Code(s): R78.81 - Bacteremia ?Status:?Acute ?Assessment and Plan: Patient had high-grade fever yesterday and low-grade fever this morning.? Will repeat chest x-ray and urinalysis and urine culture and blood culture. pansensitive Klebsiella pneumonia likely from urinary infection.? On Augmentin.?(3) Pneumonia: ?Qualifiers: ?Pneumonia type:?due to unspecified organism??Laterality:?unspecified laterality??Lung location:?unspecified part of lung? Qualified Code(s):?J18.9 - Pneumonia, unspecified organism ?Code(s): J18.9 - Pneumonia, unspecified organism ?Status:?Acute ?Assessment and Plan: Possible aspiration due to encephalopathy On p.o. Augmentin.? Will add azithromycin due to ongoing fever(4) Atrial fibrillation with RVR: ?Code(s): I48.91 - Unspecified atrial fibrillation ?Status:?Acute ?Assessment and Plan: Resolved Continue amiodarone and metoprolol Continue to monitor on telemetry(5) Depression with anxiety: ?Code(s): F41.8 - Other specified anxiety disorders ?Status:?Acute ?Assessment and Plan: Clinically stable(6) Chronic GERD: ?Code(s): K21.9 - Gastro-esophageal reflux disease without esophagitis ?Status:?Acute ?Assessment and Plan: Clinically stable(7) Cirrhosis of liver: ?Code(s): K74.60 - Unspecified cirrhosis of liver ?Status:?Acute ?Assessment and Plan: Patient on p.o. Lasix.? And aldactone (8) Chronic anemia: ?Code(s): D64.9 - Anemia, unspecified ?Status:?Acute ?Assessment and Plan: Chronic Monitor CBC Patient is refusing blood transfusion.? Will add oral iron supplementation. DS: Summary Time Spent with Patient Time attestation: Total time spent providing and/or coordinating discharge services: Exam Narrative: GENERAL: Chronically ill-appearing. no acute distress. - HEENT: Moist mucous membranes. Anicteric. Left-sided scalp depressed due to previous surgical treatment of brain tumor. -NECK: Mild JVD - LUNGS: Decreased breath sounds bilateral bases with no wheezes or crackles, mildly tachypneic - CARDIOVASCULAR: Irregularly irregular rhythm, tachycardia,. No murmur. - ABDOMEN: Soft, protuberant, non-tender. No palpable masses. - EXTREMITIES: Trace peep tibial edema - NE
--- NOTE | 2023-02-03 10:30 | PM.IMPN ---
Progress Note: A&P Assessment and Plan (1) Altered mental status: Qualifiers: Altered mental status type: disorientation Qualified Code(s): R41.0 - Disorientation, unspecified Code(s): R41.82 - Altered mental status, unspecified Status: Acute (2) Chronic anemia: Code(s): D64.9 - Anemia, unspecified Status: Acute (3) Severe sepsis: Code(s): A41.9 - Sepsis, unspecified organism; R65.20 - Severe sepsis without septic shock Status: Acute (4) Acute and chronic respiratory failure with hypoxia: Code(s): J96.21 - Acute and chronic respiratory failure with hypoxia Status: Acute (5) Pneumonia: Qualifiers: Pneumonia type: due to unspecified organism Laterality: unspecified laterality Lung location: unspecified part of lung Qualified Code(s): J18.9 - Pneumonia, unspecified organism Code(s): J18.9 - Pneumonia, unspecified organism Status: Acute (6) UTI (urinary tract infection): Qualifiers: Hematuria presence: without hematuria Urinary tract infection type: site unspecified Qualified Code(s): N39.0 - Urinary tract infection, site not specified Code(s): N39.0 - Urinary tract infection, site not specified Status: Acute (7) Bacteremia: Code(s): R78.81 - Bacteremia Status: Acute (8) Atrial fibrillation with RVR: Code(s): I48.91 - Unspecified atrial fibrillation Status: Acute (9) New onset a-fib: Code(s): I48.91 - Unspecified atrial fibrillation Status: Acute Plan (1) Acute and chronic respiratory failure with hypoxia: ?Code(s): J96.21 - Acute and chronic respiratory failure with hypoxia ?Status:?Acute ?Assessment and Plan: started o2 theray now off o2 tharpy ?echo showed:?Summary? 1. Complete two-dimensional, color flow and Doppler transthoracicechocardiogram is performed.? 2. Normal left ventricular size thickness and systolic function. ? 3. Mildly calcified mitral valve annulus with trivial MR. ? 4. Normal sinus rhythm present during this exam( exam ordered because of AFib). (2) Bacteremia: ?Code(s): R78.81 - Bacteremia ?Status:?Acute ?Assessment and Plan: Patient had high-grade fever urinalysis and urine culture and blood culture. pansensitive Klebsiella pneumonia likely from urinary infection.? On Augmentin. ?(3) Pneumonia:?Qualifiers: ?Pneumonia type:?due to unspecified organism??Laterality:?unspecified laterality??Lung location:?unspecified part of lung? Qualified Code(s):?J18.9 - Pneumonia, unspecified organism ?Code(s): J18.9 - Pneumonia, unspecified organism ?Status:?Acute ?Assessment and Plan: Possible aspiration due to encephalopathy On p.o. Augmentin.? (4) Atrial fibrillation with RVR:?Code(s): I48.91 - Unspecified atrial fibrillation ?Status:?Acute ?Assessment and Plan: Resolved Continue amiodarone and metoprolol Now patient has sinus rhythm (5) Depression with anxiety:?Code(s): F41.8 - Other specified anxiety disorders ?Status:?Acute ?Assessment and Plan: Clinically stable(6) Chronic GERD:?Code(s): K21.9 - Gastro-esophageal reflux disease without esophagitis ?Status:?Acute ?Assessment and Plan: Clinically stable(7) Cirrhosis of liver:?Code(s): K74.60 - Unspecified cirrhosis of liver ?Status:?Acute ?Assessment and Plan: Patient on p.o. Lasix.? And aldactone (8) Chronic anemia: ?Code(s): D64.9 - Anemia, unspecified ?Status:?Acute ?Assessment and Plan: Chronic Monitor CBC Patient is refusing blood transfusion.? Will add oral iron supplementation. Subjective Date/time seen: 02/03/23 10:30 Interval history: Currently asymptomatic. no fever today blood culture January 31 no growth so far, patient is alert oriented x3 Exam Narrative: ?GENERAL:? Chronically ill-appearing. ? no acute distress. -
--- NOTE | 2023-02-03 10:39 | PM.DS ---
DS: Admitting Diagnosis Discharge Date Today Admitting Diagnosis Altered mental status DS: Discharge Diagnosis Discharge Diagnosis (1) Altered mental status: Qualifiers: Altered mental status type: disorientation Qualified Code(s): R41.0 - Disorientation, unspecified Code(s): R41.82 - Altered mental status, unspecified Status: Acute (2) Severe sepsis: Code(s): A41.9 - Sepsis, unspecified organism; R65.20 - Severe sepsis without septic shock Status: Acute (3) Atrial fibrillation with RVR: Code(s): I48.91 - Unspecified atrial fibrillation Status: Acute (4) Bacteremia: Code(s): R78.81 - Bacteremia Status: Acute (5) New onset a-fib: Code(s): I48.91 - Unspecified atrial fibrillation Status: Acute (6) Pneumonia: Qualifiers: Pneumonia type: due to unspecified organism Laterality: unspecified laterality Lung location: unspecified part of lung Qualified Code(s): J18.9 - Pneumonia, unspecified organism Code(s): J18.9 - Pneumonia, unspecified organism Status: Acute (7) UTI (urinary tract infection): Qualifiers: Hematuria presence: without hematuria Urinary tract infection type: site unspecified Qualified Code(s): N39.0 - Urinary tract infection, site not specified Code(s): N39.0 - Urinary tract infection, site not specified Status: Acute (8) Right ureteral stone: Code(s): N20.1 - Calculus of ureter Status: Acute (9) Chronic anemia: Code(s): D64.9 - Anemia, unspecified Status: Acute DS: Summary Hospital Course Reason for hospitalization: Altered mental status Hospital Course: This is a 57-year-old female patient who resides in a retirement.? The patient was brought to the emergency room for altered mental status.? The patient was minimally responsive when EMS arrived to the retirement.? Patient was found to be hypoglycemic in the 40s and 50s and she was given IM glucagon her mental status did improve somewhat.? In the ED her white count was found to be 18.8.? H and H is 10.3 and 36.2.? The patient does have bandemia with band neutrophils 32.? BUN is 36 creatinine 1.5.? Her lactic was 6.0 and now 4.3.? Total bilirubin 2.5 AST 422 ALT is 87.? Troponin 0.068, 0.055, and 0.053 respectively.? BNP 6970.? She was found to be positive for UTI.? Influenza A/B and COVID are all negative.? Head CT was read as no acute intracranial pathology.? Chest x-ray was read as:?Small lung volumes with diffuse interstitial pattern, consistent with mild pulmonary edema versus atypical pneumonia versus chronic interstitial lung disease.? The patient was given Zosyn, vancomycin, azithromycin, and 3 L of IV fluids per sepsis protocol 30 milligrams/kilogram.? Her platelet count is 50.? Potassium 3.2.? Chloride is 112.? Patient was admitted.? IV antibiotics will continue.?she spiked a fever to 40? centigrade.? CT scan of the chest abdomen and pelvis was performed.? It appeared she had an obstructing renal stone and she was taken to surgery by Dr. Estrada.? Although no obstructing stone was noted, fragments of a passed stone were noted in the bladder.? A ureteral stent was placed.? Also on the CT scan, it was noted that there was dilated loops of bowel suggestive of ileus or small-bowel obstruction.? Interestingly, there were no signs of cirrhosis in the liver and her spleen was not enlarged.?Due to her deteriorating condition and the bowel gas pattern on CT, a nasogastric tube was placed. When she was stable NGT was removed and patient was started on diet Blood culture? grows Proteus mirabilis. Chest x-ray shows interstitial patchy infiltrate both lungs, suggesting atypical pneumonia, possible aspiration pneumonia. Patient on rocephin IV and oral doxycycline which was later changed to oral Augmentin She was also found to have new onset AFib and RVR and Cardiology was consulted and she was started on amiodarone Given he
[2023-02-03 11:02] LABS: SARS-CoV-2 RNA PCR Negative (Negative)
[2023-02-03 14:00] VITALS: BP 117/50; PULSE 82; RESP 16; TEMP 37.3; O2SAT 97
== END 2023-02-03 15:10 | DRG 720 ==
LOC: ANHED 09:21 → ANHIMU 13:38 → ANH3MEDSUR 01-23 15:42 → ANHIMU 01-23 18:57 → ANH2MED 01-26 00:56 → ANHIMU 01-28 17:14 → ANH3MEDSUR 01-29 14:53
PROVIDERS: Family Medicine; Hospitalist; Internal Medicine; Internal Medicine Cardiovascular Disease; Nurse Practitioner; Urology; Admitting Provider Internal Medicine; Emergency Provider Emergency Medicine; PCP Emergency Medicine; Visit Provider Hospitalist
PROC: BT1D1ZZ Fluoroscopy of Right Kidney, Ureter and Bladder using Low Osmolar Contrast (ICD-10-PCS; CPT 52352; principal; 2023-01-23 20:20)
DX: J96.21 Acute and chronic respiratory failure with hypoxia; A41.9 Sepsis, unspecified organism; G93.41 Metabolic encephalopathy; N17.9 Acute kidney failure, unspecified; J18.9 Pneumonia, unspecified organism; D69.6 Thrombocytopenia, unspecified; I95.9 Hypotension, unspecified; I48.91 Unspecified atrial fibrillation; B96.1 Klebsiella pneumoniae [K. pneumoniae] as the cause of diseases classified elsewhere; N13.2 Hydronephrosis with renal and ureteral calculous obstruction; R65.20 Severe sepsis without septic shock; K74.60 Unspecified cirrhosis of liver; N39.0 Urinary tract infection, site not specified; B96.4 Proteus (mirabilis) (morganii) as the cause of diseases classified elsewhere; D64.9 Anemia, unspecified; E16.2 Hypoglycemia, unspecified; E87.6 Hypokalemia; F41.8 Other specified anxiety disorders; G40.909 Epilepsy, unspecified, not intractable, without status epilepticus; G89.4 Chronic pain syndrome; K21.9 Gastro-esophageal reflux disease without esophagitis; K59.00 Constipation, unspecified; R77.8 Other specified abnormalities of plasma proteins; Z66 Do not resuscitate; Z20.822 Contact with and (suspected) exposure to COVID-19; Z87.820 Personal history of traumatic brain injury
CPT/HCPCS: 36415; 36556; 36600; 70450; 71045; 71250; 71260; 74019; 74176; 74177; 74250; 74420; 80048; 80053; 81001; 82140; 82274; 82565; 82728; 82805; 82948; 83540; 83550; 83605; 83690; 83735; 83880; 84132; 84145; 84443; 84484; 85025; 85027; 85055; 85610; 85730; 86850; 86900; 86901; 86923; 87040; 87077; 87081; 87086; 87088; 87186; 87635; 87636; 93005; 93306; 94002; 94640; 96361; 96365; 96375; 97110; 97116; 97162; 97164; 97165; 97530; 97535; 99291; A9270; C1751; C1758; C1769; C2617; G0378; G0379; J0282; J0330; J0456; J0696; J1756; J1940; J1953; J2060; J2270; J2543; J3370; J3475; J3480; J7030; J7040; J7120; Q9966; Q9967

== ENCOUNTER 2023-06-23 16:52 | Emergency (ER) | payer OTHER, SELFPAY ==
--- NOTE | ~2023-06-23 | CT_ITS ---
EXAMINATION: CT abdomen pelvis wo con DATE: 06/23/2023 23:24 INDICATION: Low abdominal pain. Dysuria. TECHNIQUE: Computed tomography (CT) of the abdomen and pelvis was performed without intravenous contr ast. Automated exposure control and iterative reconstruction technique were employed. The dose-length product was 421.47 mGy-cm. COMPARISON: CT abdomen and pelvis 01/27/2023 FINDINGS: The visualized portions of the lung bases demonstrate mild atelectasis. No pleural effusion . The heart size is normal. No pericardial effusion. The liver demonstrates surface nodularity, consi stent with cirrhosis. The gallbladder, spleen, pancreas, adrenal glands, and left kidney are normal. There is a right internal ureteral stent in expected position. There are calcifications around the st ent in the right kidney and right renal pelvis. There is mild right hydronephrosis and hydroureter. T here is a 2 mm stone in mid right ureter. Left kidney is normal. There are no dilated loops of bowel. The appendix is not visualized. There are no pathologically enlarged lymph nodes. There is no free i ntraperitoneal fluid. There are chronic burst fractures of T12-L2. There is severe lumbar spondylosis and thoracic spondylosis. IMPRESSION: 1. Right internal ureteral stent in expected position with calcifications around the proximal stent. 2 mm stone in mid right ureter. Mild right hydronephrosis and hydroureter. 2. Cirrhosis of the liver. Reviewed, dictated and finalized at location [facility] [employer] IMPRESSION: 1. Right internal ureteral stent in expected position with calcifications aroun d the proximal stent. 2 mm stone in mid right ureter. Mild right hydronephrosis and hydroureter. 2. Cirrhosis of the liver.
[2023-06-23 17:30] VITALS: BP 145/76; PULSE 108; RESP 16; TEMP 37.3; O2SAT 99
[2023-06-23 20:28] VITALS: BP 129/64; PULSE 94; RESP 18; TEMP 36.8; O2SAT 100
[2023-06-23 21:25] VITALS: BP 129/69; PULSE 90; RESP 16; TEMP 37; O2SAT 100
[2023-06-23 22:00] LABS: Basophils Absolute Auto 0.1 K/mm3 (0.0-0.1); Eosinophils Absolute Auto 0.1 K/mm3 (0-0.3); Eosinophils Percent Auto 2.7 % (0-4.4); Hematocrit 34.6 % (37.0-47.0); Immature Granulocyte Absolute 0.02 K/mm3 (0.00-0.031); Immature Granulocyte Percent A 0.4 % (0-0.5); Immature Platelet Fraction Pct 5.9 % (0.9-11.2); Lymphocytes Absolute Auto 1.66 K/mm3 (0.9-3.2); Lymphocytes Percent Auto 31.8 % (18.3-44.2); Mean Corpuscular HGB Conc 28.9 g/dl (32-36); Mean Corpuscular Hemoglobin 23.7 pg (26-34); Mean Platelet Volume 12.6 fl (7.4-10.4); Monocytes Percent Auto 18.8 % (2.6-8.5); Neutrophils Absolute Auto 2.4 K/mm3 (1.3-6.7); Neutrophils Percent Auto 45.3 % (45.5-73.1); Platelet Count Result 110 k/mm3 (150-375); Red Blood Count 4.22 M/mm3 (4.2-5.4); Red Cell Distribution Width 16.5 % (11.5-14.5); White Blood Count 5.2 K/mm3 (4.5-10.0)
[2023-06-23 22:09] LABS: Alanine Aminotransferase 25 U/L (6-35); Albumin Level 3.7 g/dL (3.5-5.1); Alkaline Phosphatase 109 U/L (38-126); Anion Gap 6 mmol/L (8-16); Aspartate Amino Transferase 41 U/L (14-36); Bilirubin,Total 1.4 mg/dL (0.2-1.3); Blood Urea Nitrogen 17 mg/dL (7-17); Calcium 8.8 mg/dL (8.4-10.2); Carbon Dioxide 21 mmol/L (22-30); Chloride 112 mmol/L (98-107); Estimated CRCL calculation 88 ml/min; Estimated Glomerular Filt Rate > 60; Glucose 123 mg/dL (65-110); Lipase 95 U/L (23-300); Potassium 3.3 mmol/L (3.4-5.0); Sodium 139 mmol/L (137-145)
[2023-06-23 22:17] LABS: Appearance Urine Turbid (Clear); Bacteria Urine 4+ /hpf; Bilirubin Urine 1+ (Negative); Blood Urine 2+ (Negative); Color Urine Red (Yellow); Glucose Urine UA Negative (Negative); Ketones Urine Negative (Negative); Leukocyte Esterase Ur 3+ LEU/UL (Negative); Nitrate Urine Positive (Negative); Non Pathogenic Casts 0-2; Protein Urine 2+ mg/dL (Negative); Specific Grav Ur 1.023 (1.001-1.035); Squamous Epithelial Cell Urine Few /hpf (Few); Urobilinogen Urine 0.2 mg/dL (<2.0); WBC Urine >100 /hpf
[2023-06-23 22:21] LABS: Need Manual Microscopic Reviewed
[2023-06-23 22:22] LABS: RBC Urine >100 /hpf (0-2)
[2023-06-23 22:27] LABS: Anisocytosis 2+ (NORMAL); Hypochromasia 2+ (NORMAL); Large Platelets Present; Ovalocytes 1+ (NORMAL); Poikilocytosis 1+ (NORMAL); Schistocytes None Seen (NORMAL)
[2023-06-23 22:28] LABS: Add Urine Microscopic? YES
[2023-06-23] MEDS: POTASSIUM CHLORIDE 20 MEQ ER TABLET 40 MEQ PO (23:31)
[2023-06-23] MEDS: SODIUM CHLORIDE 0.9% IV 1,000 ML 999 ML IV CONT (23:31)
[2023-06-23 23:34] VITALS: BP 123/65; PULSE 93; RESP 14; O2SAT 99
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
[2023-06-24 01:33] VITALS: BP 128/72; PULSE 77; RESP 16; TEMP 36.6; O2SAT 98
== END 2023-06-24 01:35 ==
PROVIDERS: Emergency Medicine; Emergency Provider Physician Assistant; PCP Emergency Medicine
DX: N30.01 Acute cystitis with hematuria (principal); N13.30 Unspecified hydronephrosis; Z96.0 Presence of urogenital implants; J96.21 Acute and chronic respiratory failure with hypoxia; K21.9 Gastro-esophageal reflux disease without esophagitis; K74.60 Unspecified cirrhosis of liver; B19.20 Unspecified viral hepatitis C without hepatic coma; D69.6 Thrombocytopenia, unspecified; F41.8 Other specified anxiety disorders; Z66 Do not resuscitate; Z87.442 Personal history of urinary calculi; N20.1 Calculus of ureter
CPT/HCPCS: 36415; 74176; 80053; 81001; 81025; 83690; 85025; 85055; 87077; 87086; 87088; 87186; 96365; 99284; A9270; J0696; J7030